=== PATIENT | male | born 1965 | race Two or more races ===

== ENCOUNTER 2019-08-29 10:27 | Emergency (ER) | payer MEDICAID, OTHER ==
[~2019-08-29] VITALS: Ht 175.3 cm; Wt 77.1 kg
[2019-08-29] MEDS ORDERED: ONDANSETRON HCL 4 MG/2 ML VIAL IV ONE (10:45)
[2019-08-29] MEDS ORDERED: MORPHINE SULFATE 4 MG/ML SYR/VIAL IV ONE (10:45)
[2019-08-29 12:15] VITALS: BP 123/74
== END 2019-08-29 12:49 | disposition home or self-care (01) ==
LOC: ER 10:27 → EDBD 10:27 → ER 12:49
DX: M54.16 Radiculopathy, lumbar region (principal)
CPT/HCPCS: 96374; 96375; 99284; J2270; J2405

== ENCOUNTER 2019-09-17 14:57 | Emergency (ER) | payer MEDICAID ==
[~2019-09-17] VITALS: Ht 180.3 cm; Wt 72.6 kg
[2019-09-17 16:31] VITALS: BP 133/93
[2019-09-17] MEDS ORDERED: METHOCARBAMOL 500 MG TAB PO ONE (17:30)
[2019-09-17] MEDS ORDERED: methylPREDNISolone SOD SUCC 125 MG/2 ML VL IM ONE (17:30)
[2019-09-17] MEDS ORDERED: KETOROLAC TROMETH 60MG/2ML VIAL IM ONE (17:30)
== END 2019-09-17 18:07 | disposition home or self-care (01) ==
LOC: ER 14:57
DX: M54.16 Radiculopathy, lumbar region (principal); M54.5 Low back pain; F17.210 Nicotine dependence, cigarettes, uncomplicated; F15.10 Other stimulant abuse, uncomplicated; Z59.0 Homelessness
CPT/HCPCS: 72100; 96372; 99284; J1885; J2930

== ENCOUNTER 2019-09-27 11:13 | Emergency (ER) | payer MEDICAID ==
[~2019-09-27] VITALS: Ht 180.3 cm; Wt 77.1 kg
[2019-09-27 11:17] VITALS: BP 152/87
[2019-09-27] MEDS ORDERED: LIDOCAINE 1% HCL (LOCAL ANESTH.) INJ 20ML MDV IJ ONE (12:30)
[2019-09-27] MEDS ORDERED: KETOROLAC TROMETH 60MG/2ML VIAL IM ONE (13:00)
[2019-09-27] MEDS ORDERED: cefTRIAXone SOD 1,000 MG VL IM ONE (13:00)
== END 2019-09-27 13:24 | disposition home or self-care (01) ==
LOC: ER 11:13
DX: L02.414 Cutaneous abscess of left upper limb (principal)
CPT/HCPCS: 10060; 87075; 96372; 99284; J0696; J1885

== ENCOUNTER 2019-09-29 15:54 | Emergency (ER) | payer MEDICAID ==
[~2019-09-29] VITALS: Ht 180.3 cm; Wt 77.1 kg
[2019-09-29 17:48] LABS: Eosinophils # (auto) 0.1 10 ^3/uL (0-0.8); Monocytes # (auto) 0.7 10 ^3/uL (0-1.3); Red Blood Cells 3.98 10^6/uL (4.5-5.90); White Blood Cell 9.3 10^3/uL (4.4-10.8)
[2019-09-29 17:50] LABS: Basophils # (auto) 0.1 10 ^3/uL (0-0.2); Basophils % (auto) 0.7 % (0.0-2.0); Eosinophils % (auto) 1.2 % (0.0-7.0); Hematocrit 37.8 % (41.0-53.0); Hemoglobin 12.6 g/dL (13.5-17.5); Lymphocytes # (auto) 1.1 10 ^3/uL (0.4-5.4); Lymphocytes % (auto) 12.1 % (10.0-50.0); Mean Corpuscular Hemoglobin 31.7 pg (28.0-32.0); Mean Corpuscular Hgb Conc. 33.3 g/dL (32.0-36.0); Mean Corpuscular Volume 95.1 fL (80.0-100.0); Monocytes % (auto) 7.4 % (0.0-12.0); Neutrophils # (auto) 7.4 10 ^3/uL (1.6-8.6); Neutrophils % (auto) 78.6 % (37.0-80.0); Platelet Count (auto) 483 10^3/uL (140-450); Red Cell Distribution Width 14.3 % (11.8-14.3)
[2019-09-29 18:06] LABS: Albumin 2.8 g/dL (3.4-5.0); BUN/Creatinine Ratio 12.5; Potassium 4.1 mmol/L (3.5-5.1)
[2019-09-29 18:09] LABS: Bilirubin, Total 0.2 mg/dL (0.2-1.0); Total Protein 7.8 g/dL (6.4-8.2)
[2019-09-29] MEDS ORDERED: VANCOMYCIN PER PHARMACY 0 MG IV SCH (19:00)
[2019-09-29] MEDS ORDERED: PIPERACILLIN-TAZOB 3.375GM 100 ML IV ONE (19:00)
[2019-09-29] MEDS ORDERED: VANCOMYCIN 1GM/250ML 250 ML IV ONE (19:30)
[2019-09-29] MEDS ORDERED: ONDANSETRON HCL 4 MG/2 ML VIAL IV ONE (21:15)
[2019-09-29] MEDS ORDERED: MORPHINE SULFATE 4 MG/ML SYR/VIAL IV ONE (21:15)
[2019-09-29] MEDS ORDERED: MIDAZOLAM HCL 5 MG/ML-1ML VIAL IV ONE (21:45)
[2019-09-29] MEDS ORDERED: fentaNYL CITRATE 100 MCG/2 ML VL IV ONE (21:45)
[2019-09-29] MEDS ORDERED: LIDOCAINE 1% HCL (LOCAL ANESTH.) INJ 20ML MDV ONE (23:56)
[2019-09-30] MEDS ORDERED: LIDOCAINE 1% HCL (LOCAL ANESTH.) INJ 20ML MDV ID ONE
[2019-09-30 01:00] VITALS: BP 146/100
[2019-09-30] MEDS ORDERED: HYDROcodone-ACET 10/325MG TAB PO ONE (01:15)
== END 2019-09-30 02:30 | disposition home or self-care (01) ==
LOC: ER 15:54
DX: L03.114 Cellulitis of left upper limb (principal); F17.210 Nicotine dependence, cigarettes, uncomplicated; Z59.0 Homelessness
CPT/HCPCS: 36415; 73200; 76881; 80053; 83605; 85025; 87040; 96365; 96366; 96368; 96375; 99285; J2001; J2250; J2270; J2405; J2543; J3010; J3370

== ENCOUNTER 2020-10-28 13:17 | Emergency (ER) | payer MEDICAID ==
[~2020-10-28] VITALS: Ht 180.3 cm; Wt 83.9 kg
[2020-10-28] MEDS ORDERED: TAMSULOSIN HYDROCHLORIDE 0.4 MG CAP PO ONE (13:42)
[2020-10-28 13:56] VITALS: BP 159/95
[2020-10-28] MEDS ORDERED: traMADol HCL 50 MG TAB PO ONE (15:00)
[2020-10-28 15:08] LABS: Urine Amorphous Crystal FEW /hpf (None Seen); Urine Bacteria FEW /hpf (None Seen); Urine Blood 3+ /uL (Negative); Urine Mucus FEW (None Seen); Urine Specific Gravity 1.014 (1.001-1.035); Urine Sperm PRESENT /hpf (None Seen); Urine WBC 14 /hpf (0 - 3)
== END 2020-10-28 14:57 | disposition home or self-care (01) ==
LOC: ER 13:17 → EDBD 13:17 → ER 14:56
DX: R33.9 Retention of urine, unspecified (principal); N39.0 Urinary tract infection, site not specified; N40.0 Benign prostatic hyperplasia without lower urinary tract symptoms; F17.210 Nicotine dependence, cigarettes, uncomplicated; Z59.0 Homelessness
CPT/HCPCS: 51702; 81001; 87086

== ENCOUNTER 2020-10-31 13:01 | Emergency (ER) | payer MEDICAID ==
[~2020-10-31] VITALS: Ht 180.3 cm; Wt 83.9 kg
[2020-10-31] MEDS ORDERED: KETOROLAC TROMETH 60MG/2ML VIAL IM ONE (16:00)
[2020-10-31 16:22] VITALS: BP 143/81
== END 2020-10-31 16:31 | disposition home or self-care (01) ==
LOC: ER 13:01
DX: G89.29 Other chronic pain (principal); M54.5 Low back pain; L08.9 Local infection of the skin and subcutaneous tissue, unspecified; F17.210 Nicotine dependence, cigarettes, uncomplicated; Z59.0 Homelessness
CPT/HCPCS: 96372; 99283; J1885

== ENCOUNTER 2020-11-01 12:25 | Emergency (ER) | payer MEDICAID ==
[~2020-11-01] VITALS: Ht 180.3 cm; Wt 83.9 kg
[2020-11-01 15:00] VITALS: BP 148/88
== END 2020-11-01 15:54 | disposition home or self-care (01) ==
LOC: ER 12:25
DX: M54.5 Low back pain (principal); G89.29 Other chronic pain; N40.0 Benign prostatic hyperplasia without lower urinary tract symptoms; F17.210 Nicotine dependence, cigarettes, uncomplicated; Z46.6 Encounter for fitting and adjustment of urinary device; Z59.0 Homelessness

== ENCOUNTER 2020-11-07 13:38 | Emergency (ER) | payer MEDICAID ==
[~2020-11-07] VITALS: Ht 180.3 cm; Wt 81.6 kg
[2020-11-07] MEDS ORDERED: cefTRIAXone SOD 1,000 MG VL IM ONE (16:15)
[2020-11-07 16:32] VITALS: BP 137/89
== END 2020-11-07 16:39 | disposition home or self-care (01) ==
LOC: ER 13:38
DX: S90.512A Abrasion, left ankle, initial encounter (principal); F17.210 Nicotine dependence, cigarettes, uncomplicated; F15.10 Other stimulant abuse, uncomplicated; Z59.0 Homelessness; X58.XXXA Exposure to other specified factors, initial encounter; Y93.89 Activity, other specified; Y92.89 Other specified places as the place of occurrence of the external cause; Y99.8 Other external cause status
CPT/HCPCS: 96372; 99283; J0696

== ENCOUNTER 2021-06-09 09:24 | Emergency (ER) | payer MEDICAID ==
[~2021-06-09] VITALS: Ht 180.3 cm; Wt 77.1 kg
[2021-06-09] MEDS ORDERED: ONDANSETRON ODT 4 MG TAB PO ONE (10:45)
[2021-06-09] MEDS ORDERED: HYDROcodone-ACET 5/325MG TAB PO ONE (10:45)
[2021-06-09] MEDS ORDERED: CYCL-837 PO (10:51)
[2021-06-09] MEDS ORDERED: NAP500T PO (10:51)
[2021-06-09 11:00] VITALS: BP 135/87
== END 2021-06-09 11:28 | disposition home or self-care (01) ==
LOC: ER 09:24
DX: M77.9 Enthesopathy, unspecified (principal); M19.011 Primary osteoarthritis, right shoulder; F17.210 Nicotine dependence, cigarettes, uncomplicated
CPT/HCPCS: 73030; 99283; Q0162

== ENCOUNTER 2021-08-25 14:37 | Emergency (ER) | payer MEDICAID ==
[~2021-08-25] VITALS: Ht 180.3 cm; Wt 81.6 kg
[~2021-08-25 14:37] MED LIST: CYCL-837 PO; CYCL-839 PO; IBUP800T27 PO; NAP500T PO
[2021-08-25 14:45] VITALS: BP 103/72
[2021-08-25] MEDS ORDERED: KETOROLAC TROMETH 60MG/2ML VIAL IM ONE (16:15)
[2021-08-25] MEDS ORDERED: HYDROcodone-ACET 5/325MG TAB PO ONE (16:15)
[2021-08-25] MEDS ORDERED: ACET-1080 PO (16:26)
== END 2021-08-25 16:37 | disposition home or self-care (01) ==
LOC: ER 14:37
DX: G89.29 Other chronic pain (principal); M54.50 Low back pain, unspecified; I10 Essential (primary) hypertension; F17.210 Nicotine dependence, cigarettes, uncomplicated; Z79.1 Long term (current) use of non-steroidal anti-inflammatories (NSAID); Z79.899 Other long term (current) drug therapy
CPT/HCPCS: 93005; 96372; 99283; J1885

== ENCOUNTER 2021-09-03 12:20 | Emergency (ER) | payer MEDICAID ==
[~2021-09-03] VITALS: Ht 180.3 cm; Wt 79.0 kg
[~2021-09-03 12:20] MED LIST changes: +ACET-1080 PO
[2021-09-03 13:00] VITALS: BP 141/88
[2021-09-03] MEDS ORDERED: CYCL-837 PO (13:07)
[2021-09-03] MEDS ORDERED: KETOROLAC TROMETH 60MG/2ML VIAL IM ONE (13:15)
[2021-09-03] MEDS ORDERED: HYDROcodone-ACET 5/325MG TAB PO ONE (13:15)
== END 2021-09-03 13:35 | disposition home or self-care (01) ==
LOC: ER 12:20
DX: M54.50 Low back pain, unspecified (principal); G89.29 Other chronic pain; M62.838 Other muscle spasm; I10 Essential (primary) hypertension; F17.210 Nicotine dependence, cigarettes, uncomplicated
CPT/HCPCS: 96372; 99283; J1885

== ENCOUNTER 2021-09-08 10:23 | Emergency (ER) | payer MEDICAID ==
[~2021-09-08] VITALS: Ht 180.3 cm; Wt 81.6 kg
[2021-09-08 11:11] VITALS: BP 126/81
[2021-09-08] MEDS ORDERED: HYDROcodone-ACET 5/325MG TAB PO ONE (11:15)
[2021-09-08] MEDS ORDERED: KETOROLAC TROMETH 60MG/2ML VIAL IM ONE (11:15)
[2021-09-08] MEDS ORDERED: IBUP800T27 PO (11:40)
== END 2021-09-08 11:50 | disposition home or self-care (01) ==
LOC: ER 10:23
DX: M54.50 Low back pain, unspecified (principal); G89.29 Other chronic pain; I10 Essential (primary) hypertension; F17.210 Nicotine dependence, cigarettes, uncomplicated
CPT/HCPCS: 96372; 99283; J1885

== ENCOUNTER 2021-09-10 11:22 | Inpatient (IN) | payer MEDICAID ==
[~2021-09-10] VITALS: Ht 180.3 cm; Wt 81.8 kg
[2021-09-10] MEDS ORDERED: SODIUM CHLORIDE 0.9% 1,000 ML IV ONE (11:30)
[2021-09-10 12:15] LABS: Basophils # (auto) 0.1 10 ^3/uL (0-0.2); Basophils % (auto) 0.4 % (0.0-2.0); Eosinophils # (auto) 0 10 ^3/uL (0-0.8); Eosinophils % (auto) 0.2 % (0.0-7.0); Hematocrit 47.1 % (41.0-53.0); Hemoglobin 15.2 g/dL (13.5-17.5); Lymphocytes # (auto) 1.2 10 ^3/uL (0.4-5.4); Lymphocytes % (auto) 8.1 % (10.0-50.0); Mean Corpuscular Hemoglobin 30.8 pg (28.0-32.0); Mean Corpuscular Hgb Conc. 32.3 g/dL (32.0-36.0); Mean Corpuscular Volume 95.1 fL (80.0-100.0); Monocytes # (auto) 0.7 10 ^3/uL (0-1.3); Monocytes % (auto) 4.7 % (0.0-12.0); Neutrophils # (auto) 13.2 10 ^3/uL (1.6-8.6); Neutrophils % (auto) 86.6 % (37.0-80.0); Red Blood Cells 4.95 10^6/uL (4.5-5.90); Red Cell Distribution Width 13.6 % (11.8-14.3); White Blood Cell 15.2 10^3/uL (4.4-10.8)
[2021-09-10 12:35] LABS: Potassium 3.9 mmol/L (3.5-5.1)
[2021-09-10 12:39] LABS: Bilirubin, Total 2.1 mg/dL (0.2-1.0); Total Protein 8.7 g/dL (6.4-8.2)
[2021-09-10] MEDS ORDERED: CLINDAMYCIN 600MG IV 50 ML IV ONE (12:45)
[2021-09-10] MEDS ORDERED: cefTRIAXone 1GM/50ML D5W 50 ML IV ONE (12:45)
[2021-09-10] MEDS ORDERED: NICOTINE 14 MG/24HR TOPICAL PATCH TD ONE (15:15)
[2021-09-10] MEDS ORDERED: SODIUM CHLORIDE 0.9% 1,000 ML IV SCH (15:15)
[2021-09-10] MEDS: SODIUM CHLORIDE 0.9% 1,000 ML IV SCH ×2 (15:28→23:15)
[2021-09-10] MEDS ORDERED: PANTOPRAZOLE 40 MG/10 ML VIAL INJ IV ONE (15:30)
[2021-09-10] MEDS ORDERED: KETOROLAC TROMETH 30 MG/ML 1ML VIAL IV ONE (16:00)
[2021-09-10 16:16] LABS: Cholesterol 139 mg/dL (< 200)
[2021-09-10 16:19] LABS: HDL Cholesterol 46 mg/dL (40-59); LDL Cholesterol 72 mg/dL (< 100); Triglycerides 109 mg/dL (< 150)
[2021-09-10] MEDS ORDERED: ACETAMINOPHEN 325 MG TAB PO PRN (20:30)
[2021-09-10] MEDS: OXYCODONE W/ ACETAMINOPHEN 5/325MG TABLET PO PRN (20:50)
[2021-09-10 22:00] VITALS: BP 101/68
[2021-09-10] MEDS: CLINDAMYCIN 600MG IV 50 ML IV SCH (22:45)
[2021-09-10 23:11] LABS: Amphetamine Screen, Urine POSITIVE (NEGATIVE); Barbiturate Scree,Urine NEGATIVE (NEGATIVE); Benzodiazephine Screen, Urine NEGATIVE (NEGATIVE); Cannabinoid Screen, Urine NEGATIVE (NEGATIVE); Cocaine Screen, Urine NEGATIVE (NEGATIVE); Opiate Scree,Urine NEGATIVE (NEGATIVE)
[2021-09-10 23:14] LABS: Urine Bacteria NONE SEEN /hpf (None Seen); Urine Blood 2+ /uL (Negative); Urine Hyaline Cast MANY /lpf (0 - 2); Urine Mucus FEW (None Seen); Urine Specific Gravity 1.023 (1.001-1.035); Urine WBC 28 /hpf (0 - 3)
[2021-09-10 23:47] LABS: Phencyclidine Screen, Urine NEGATIVE (NEGATIVE)
[2021-09-11] MEDS: SODIUM CHLORIDE 0.9% 1,000 ML IV SCH ×2 (00:15→15:15)
[2021-09-11 05:00] VITALS: BP 115/68
[2021-09-11] MEDS: OXYCODONE W/ ACETAMINOPHEN 5/325MG TABLET PO PRN ×3 (05:14→21:27)
[2021-09-11] MEDS: CLINDAMYCIN 600MG IV 50 ML IV SCH ×3 (05:25→21:28)
[2021-09-11 06:26] LABS: Basophils # (auto) 0 10 ^3/uL (0-0.2); Basophils % (auto) 0.2 % (0.0-2.0); Eosinophils # (auto) 0.1 10 ^3/uL (0-0.8); Eosinophils % (auto) 0.9 % (0.0-7.0); Hematocrit 36.4 % (41.0-53.0); Lymphocytes # (auto) 1.2 10 ^3/uL (0.4-5.4); Lymphocytes % (auto) 12.9 % (10.0-50.0); Mean Corpuscular Hemoglobin 32.1 pg (28.0-32.0); Mean Corpuscular Volume 97.3 fL (80.0-100.0); Monocytes # (auto) 0.7 10 ^3/uL (0-1.3); Monocytes % (auto) 6.9 % (0.0-12.0); Neutrophils # (auto) 7.6 10 ^3/uL (1.6-8.6); Neutrophils % (auto) 79.1 % (37.0-80.0); Nucleated Red Blood Cells % 0.1 %; Red Blood Cells 3.74 10^6/uL (4.5-5.90); Red Cell Distribution Width 13.7 % (11.8-14.3); White Blood Cell 9.6 10^3/uL (4.4-10.8)
[2021-09-11 06:50] LABS: Albumin 2.9 g/dL (3.4-5.0); BUN/Creatinine Ratio 35.5; Calcium 8.3 mg/dL (8.5-10.1); Potassium 3.7 mmol/L (3.5-5.1)
[2021-09-11 06:53] LABS: Bilirubin, Total 0.8 mg/dL (0.2-1.0); Total Protein 6.3 g/dL (6.4-8.2)
[2021-09-11 09:04] VITALS: BP 95/58
[2021-09-11] MEDS: NICOTINE 14 MG/24HR TOPICAL PATCH TD SCH (09:29)
[2021-09-11] MEDS: ENOXAPARIN SOD 40 MG/0.4 ML SYRINGE SC SCH (09:30)
[2021-09-11] MEDS ORDERED: PANTOPRAZOLE 40 MG/10 ML VIAL INJ IV SCH (10:00)
[2021-09-11 13:00] VITALS: BP 98/63
[2021-09-11] MEDS: cefTRIAXone 1GM/50ML D5W 50 ML IV SCH (16:45)
[2021-09-11 17:00] VITALS: BP 96/54
[2021-09-11 20:00] VITALS: BP 108/69
[2021-09-11 22:00] VITALS: BP 108/69
[2021-09-12 05:00] VITALS: BP 112/70
[2021-09-12] MEDS: SODIUM CHLORIDE 0.9% 1,000 ML IV SCH ×4 (05:31→23:15)
[2021-09-12] MEDS: CLINDAMYCIN 600MG IV 50 ML IV SCH ×4 (05:31→22:15)
[2021-09-12] MEDS: OXYCODONE W/ ACETAMINOPHEN 5/325MG TABLET PO PRN ×2 (05:37→19:45)
[2021-09-12 09:00] VITALS: BP 104/66
[2021-09-12] MEDS ORDERED: VANCOMYCIN PER PHARMACY 0 MG IV SCH (09:15)
[2021-09-12] MEDS ORDERED: VANCOMYCIN 1GM/250ML 250 ML IV ONE (10:00)
[2021-09-12] MEDS: PANTOPRAZOLE 40 MG TAB PO SCH (11:23)
[2021-09-12] MEDS: ENOXAPARIN SOD 40 MG/0.4 ML SYRINGE SC SCH (11:24)
[2021-09-12] MEDS: NICOTINE 14 MG/24HR TOPICAL PATCH TD SCH (11:25)
[2021-09-12 13:00] VITALS: BP 112/71
[2021-09-12] MEDS: VANCOMYCIN 1GM/250ML 250 ML IV SCH ×2 (13:00→23:00)
[2021-09-12] MEDS: cefTRIAXone 1GM/50ML D5W 50 ML IV SCH (16:00)
[2021-09-12 17:00] VITALS: BP 121/74
[2021-09-12 22:00] VITALS: BP 129/71
[2021-09-12] MEDS: MORPHINE SULFATE INJ 2 MG/ml SYRG IV PRN (23:30)
[2021-09-13 05:00] VITALS: BP 120/80
[2021-09-13] MEDS: CLINDAMYCIN 600MG IV 50 ML IV SCH ×3 (06:15→21:29)
[2021-09-13] MEDS: SODIUM CHLORIDE 0.9% 1,000 ML IV SCH ×3 (07:15→23:53)
[2021-09-13 07:38] LABS: Potassium 4.3 mmol/L (3.5-5.1)
[2021-09-13 09:00] VITALS: BP 131/83
[2021-09-13] MEDS: NICOTINE 14 MG/24HR TOPICAL PATCH TD SCH (09:26)
[2021-09-13] MEDS: PANTOPRAZOLE 40 MG TAB PO SCH (09:26)
[2021-09-13] MEDS: ENOXAPARIN SOD 40 MG/0.4 ML SYRINGE SC SCH (09:26)
[2021-09-13] MEDS: MORPHINE SULFATE INJ 2 MG/ml SYRG IV PRN ×2 (10:04→18:21)
[2021-09-13] MEDS: VANCOMYCIN 1GM/250ML 250 ML IV SCH ×2 (11:21→23:01)
[2021-09-13 13:00] VITALS: BP 137/81
[2021-09-13 17:00] VITALS: BP 128/81
[2021-09-13] MEDS: cefTRIAXone 1GM/50ML D5W 50 ML IV SCH (18:01)
[2021-09-13 22:00] VITALS: BP 131/82
[2021-09-14] MEDS: MORPHINE SULFATE INJ 2 MG/ml SYRG IV PRN ×4 (01:30→21:32)
[2021-09-14 05:00] VITALS: BP 133/83
[2021-09-14] MEDS: CLINDAMYCIN 600MG IV 50 ML IV SCH ×3 (06:01→21:31)
[2021-09-14 07:27] LABS: Basophils # (auto) 0.1 10 ^3/uL (0-0.2); Basophils % (auto) 0.9 % (0.0-2.0); Eosinophils # (auto) 0.2 10 ^3/uL (0-0.8); Eosinophils % (auto) 3.4 % (0.0-7.0); Hemoglobin 12.1 g/dL (13.5-17.5); Lymphocytes # (auto) 1.1 10 ^3/uL (0.4-5.4); Lymphocytes % (auto) 16.2 % (10.0-50.0); Mean Corpuscular Hemoglobin 32.4 pg (28.0-32.0); Mean Corpuscular Hgb Conc. 33.8 g/dL (32.0-36.0); Monocytes # (auto) 0.7 10 ^3/uL (0-1.3); Monocytes % (auto) 9.8 % (0.0-12.0); Neutrophils # (auto) 4.9 10 ^3/uL (1.6-8.6); Neutrophils % (auto) 69.7 % (37.0-80.0); Red Blood Cells 3.75 10^6/uL (4.5-5.90); Red Cell Distribution Width 13.4 % (11.8-14.3)
[2021-09-14 07:54] LABS: Albumin 2.4 g/dL (3.4-5.0); BUN/Creatinine Ratio 20.7; Calcium 8.3 mg/dL (8.5-10.1)
[2021-09-14 07:57] LABS: Bilirubin, Total 0.3 mg/dL (0.2-1.0)
[2021-09-14 08:36] VITALS: BP 135/86
[2021-09-14] MEDS: NICOTINE 14 MG/24HR TOPICAL PATCH TD SCH ×2 (08:54→09:31)
[2021-09-14] MEDS: PANTOPRAZOLE 40 MG TAB PO SCH (08:54)
[2021-09-14] MEDS: ENOXAPARIN SOD 40 MG/0.4 ML SYRINGE SC SCH (08:54)
[2021-09-14] MEDS: SODIUM CHLORIDE 0.9% 1,000 ML IV SCH ×3 (09:32→21:32)
[2021-09-14] MEDS: VANCOMYCIN 1GM/250ML 250 ML IV SCH ×2 (11:48→20:03)
[2021-09-14] MEDS ORDERED: GADOTERATE MEG 7.5 MMOL/15ml INJ (0.5MMOL/ml) IV ONE (11:51)
[2021-09-14] MEDS ORDERED: IOHEXOL 300 MG/ML 100ML BOTTLE IJ ONE (15:19)
[2021-09-14] MEDS: cefTRIAXone 1GM/50ML D5W 50 ML IV SCH (17:45)
[2021-09-14 22:09] VITALS: BP_SYST 133
[2021-09-15] MEDS: MORPHINE SULFATE INJ 2 MG/ml SYRG IV PRN ×4 (03:18→22:53)
[2021-09-15 05:28] VITALS: BP 131/87
[2021-09-15] MEDS: SODIUM CHLORIDE 0.9% 1,000 ML IV SCH ×2 (05:58→15:15)
[2021-09-15] MEDS: CLINDAMYCIN 600MG IV 50 ML IV SCH (06:00)
[2021-09-15 09:00] VITALS: BP 133/76
[2021-09-15] MEDS: NICOTINE 14 MG/24HR TOPICAL PATCH TD SCH (10:00)
[2021-09-15] MEDS: PANTOPRAZOLE 40 MG TAB PO SCH (10:25)
[2021-09-15] MEDS: ENOXAPARIN SOD 40 MG/0.4 ML SYRINGE SC SCH (10:25)
[2021-09-15] MEDS: VANCOMYCIN 1GM/250ML 250 ML IV SCH (12:19)
[2021-09-15 13:00] VITALS: BP 133/82
[2021-09-15 16:45] LABS: INR 1.07 (0.9-1.15); Partial Thromboplastin Time 30.5 sec (23.6-33.0)
[2021-09-15 17:00] VITALS: BP 146/87
[2021-09-15] MEDS ORDERED: VANCOMYCIN 1GM/250ML 250 ML IV SCH (20:00)
[2021-09-15 21:43] VITALS: BP 141/78
[2021-09-16] MEDS: SODIUM CHLORIDE 0.9% 1,000 ML IV SCH ×4 (01:47→23:15)
[2021-09-16] MEDS: MORPHINE SULFATE INJ 2 MG/ml SYRG IV PRN ×2 (04:39→09:36)
[2021-09-16 05:00] VITALS: BP 138/76
[2021-09-16] MEDS: CLINDAMYCIN 600MG IV 50 ML IV SCH ×3 (05:38→21:39)
[2021-09-16 08:00] VITALS: BP 123/72
[2021-09-16 08:30] VITALS: BP 123/72
[2021-09-16] MEDS: PANTOPRAZOLE 40 MG TAB PO SCH (09:37)
[2021-09-16] MEDS: NICOTINE 14 MG/24HR TOPICAL PATCH TD SCH (09:38)
[2021-09-16] MEDS: ENOXAPARIN SOD 40 MG/0.4 ML SYRINGE SC SCH (09:38)
[2021-09-16] MEDS: HYDROmorphone HCL 2 MG/ML VL/or syr IV PRN (10:30)
[2021-09-16] MEDS ORDERED: LIDOCAINE 2%HCL (LOCAL ANESTH.) INJ 10ml MDV ONE (10:34)
[2021-09-16] MEDS: VANCOMYCIN 1GM/250ML 250 ML IV SCH (15:55)
[2021-09-16] MEDS: cefTRIAXone 1GM/50ML D5W 50 ML IV SCH (16:00)
[2021-09-16 16:44] VITALS: BP 126/81
[2021-09-16] MEDS: OXYCODONE W/ ACETAMINOPHEN 5/325MG TABLET PO PRN (21:06)
[2021-09-16 22:19] VITALS: BP 140/77
[2021-09-17] MEDS: VANCOMYCIN 1GM/250ML 250 ML IV SCH ×2 (03:23→14:52)
[2021-09-17 05:00] VITALS: BP 134/68
[2021-09-17] MEDS: CLINDAMYCIN 600MG IV 50 ML IV SCH ×3 (05:35→21:52)
[2021-09-17] MEDS: SODIUM CHLORIDE 0.9% 1,000 ML IV SCH ×3 (05:36→23:15)
[2021-09-17 06:19] LABS: BUN/Creatinine Ratio 23.4; Calcium 8.6 mg/dL (8.5-10.1)
[2021-09-17 08:00] VITALS: BP 123/72
[2021-09-17] MEDS: NICOTINE 14 MG/24HR TOPICAL PATCH TD SCH (08:43)
[2021-09-17] MEDS: ENOXAPARIN SOD 40 MG/0.4 ML SYRINGE SC SCH (08:44)
[2021-09-17] MEDS: PANTOPRAZOLE 40 MG TAB PO SCH (08:44)
[2021-09-17] MEDS: OXYCODONE W/ ACETAMINOPHEN 5/325MG TABLET PO PRN ×2 (08:48→20:05)
[2021-09-17 09:00] VITALS: BP 156/97
[2021-09-17 13:02] VITALS: BP 147/82
[2021-09-17] MEDS: cefTRIAXone 1GM/50ML D5W 50 ML IV SCH (16:56)
[2021-09-17 17:00] VITALS: BP 139/85
[2021-09-17 22:00] VITALS: BP 159/77
[2021-09-18] MEDS: VANCOMYCIN 1GM/250ML 250 ML IV SCH ×2 (02:51→15:36)
[2021-09-18 04:59] VITALS: BP 144/80
[2021-09-18] MEDS: SODIUM CHLORIDE 0.9% 1,000 ML IV SCH (05:21)
[2021-09-18] MEDS: CLINDAMYCIN 600MG IV 50 ML IV SCH ×3 (05:21→22:00)
[2021-09-18 09:00] VITALS: BP 144/81
[2021-09-18] MEDS: ENOXAPARIN SOD 40 MG/0.4 ML SYRINGE SC SCH (09:23)
[2021-09-18] MEDS: NICOTINE 14 MG/24HR TOPICAL PATCH TD SCH (09:23)
[2021-09-18] MEDS: PANTOPRAZOLE 40 MG TAB PO SCH (09:23)
[2021-09-18 13:00] VITALS: BP 160/99
[2021-09-18] MEDS: OXYCODONE W/ ACETAMINOPHEN 5/325MG TABLET PO PRN (14:23)
[2021-09-18] MEDS: HYDROmorphone HCL 2 MG/ML VL/or syr IV PRN (15:42)
[2021-09-18] MEDS: cefTRIAXone 1GM/50ML D5W 50 ML IV SCH (16:57)
[2021-09-18 17:00] VITALS: BP 127/73
[2021-09-18 22:00] VITALS: BP 144/80
[2021-09-19] MEDS: VANCOMYCIN 1GM/250ML 250 ML IV SCH ×2 (02:52→14:18)
[2021-09-19 05:00] VITALS: BP_SYST 112; BP_SYST 154; BP_DIAS 54; BP_DIAS 84
[2021-09-19] MEDS: CLINDAMYCIN 600MG IV 50 ML IV SCH (06:00)
[2021-09-19] MEDS: NICOTINE 14 MG/24HR TOPICAL PATCH TD SCH (08:52)
[2021-09-19] MEDS: ENOXAPARIN SOD 40 MG/0.4 ML SYRINGE SC SCH (08:52)
[2021-09-19] MEDS: PANTOPRAZOLE 40 MG TAB PO SCH (08:52)
[2021-09-19 09:00] VITALS: BP 139/78
[2021-09-19 13:00] VITALS: BP_SYST 131; BP_SYST 91; BP_DIAS 51; BP_DIAS 80
[2021-09-19] MEDS: CLINDAMYCIN HCL 150 MG CAP PO SCH ×2 (14:17→21:56)
[2021-09-19] MEDS: OXYCODONE W/ ACETAMINOPHEN 5/325MG TABLET PO PRN ×2 (14:25→21:57)
[2021-09-19] MEDS: cefTRIAXone 1GM/50ML D5W 50 ML IV SCH (16:43)
[2021-09-19 17:00] VITALS: BP 165/100
[2021-09-19 22:00] VITALS: BP 160/97
[2021-09-19 23:00] VITALS: BP 141/75
[2021-09-20] MEDS: VANCOMYCIN 1GM/250ML 250 ML IV SCH (03:06)
[2021-09-20] MEDS: OXYCODONE W/ ACETAMINOPHEN 5/325MG TABLET PO PRN (04:05)
[2021-09-20 05:54] LABS: Basophils # (auto) 0 10 ^3/uL (0-0.2); Basophils % (auto) 0.4 % (0.0-2.0); Eosinophils # (auto) 0.2 10 ^3/uL (0-0.8); Eosinophils % (auto) 1.4 % (0.0-7.0); Hematocrit 41.2 % (41.0-53.0); Hemoglobin 13.7 g/dL (13.5-17.5); Lymphocytes # (auto) 1.7 10 ^3/uL (0.4-5.4); Lymphocytes % (auto) 15.3 % (10.0-50.0); Mean Corpuscular Hemoglobin 31.2 pg (28.0-32.0); Mean Corpuscular Hgb Conc. 33.3 g/dL (32.0-36.0); Mean Corpuscular Volume 93.8 fL (80.0-100.0); Monocytes # (auto) 0.7 10 ^3/uL (0-1.3); Monocytes % (auto) 6.2 % (0.0-12.0); Neutrophils # (auto) 8.6 10 ^3/uL (1.6-8.6); Neutrophils % (auto) 76.7 % (37.0-80.0); Nucleated Red Blood Cells % 0.1 %; Red Blood Cells 4.39 10^6/uL (4.5-5.90); Red Cell Distribution Width 13.4 % (11.8-14.3); White Blood Cell 11.2 10^3/uL (4.4-10.8)
[2021-09-20 06:04] LABS: Albumin 3.4 g/dL (3.4-5.0)
[2021-09-20 06:06] LABS: BUN/Creatinine Ratio 22.9; Phosphorus 3.6 mg/dL (2.5-4.90)
[2021-09-20] MEDS: CLINDAMYCIN HCL 150 MG CAP PO SCH (06:52)
[2021-09-20 09:00] VITALS: BP 118/65
== END 2021-09-20 10:25 | disposition left against medical advice (07) | DRG 383 ==
LOC: ER 11:22 → WEST WING 15:16
PROVIDERS: ADMIT Registered Nurse; ATTEND Family Medicine
PROC: 05HC33Z Insertion of Infusion Device into Left Basilic Vein, Percutaneous Approach (ICD-10-PCS; 2021-09-15)
PROC: B54NZZA Ultrasonography of Left Upper Extremity Veins, Guidance (ICD-10-PCS; 2021-09-15)
PROC: 0X9 Anatomical Regions, Upper Extremities, Drainage (ICD-10-PCS; principal; 2021-09-16)
DX: L02.413 Cutaneous abscess of right upper limb (principal); F15.90 Other stimulant use, unspecified, uncomplicated; N39.0 Urinary tract infection, site not specified; L03.113 Cellulitis of right upper limb; F17.210 Nicotine dependence, cigarettes, uncomplicated; R07.9 Chest pain, unspecified; Z53.29 Procedure and treatment not carried out because of patient's decision for other reasons; G89.29 Other chronic pain; I10 Essential (primary) hypertension; Z20.822 Contact with and (suspected) exposure to COVID-19; K46.9 Unspecified abdominal hernia without obstruction or gangrene; M54.50 Low back pain, unspecified; Z72.89 Other problems related to lifestyle; N40.1 Benign prostatic hyperplasia with lower urinary tract symptoms; R10.9 Unspecified abdominal pain
CPT/HCPCS: 36415; 71045; 73200; 73201; 74176; 76942; 80048; 80053; 80061; 80069; 80202; 80307; 80320; 81001; 82565; 83605; 84484; 85025; 85610; 85730; 87040; 87086; 87205; 93005; 93971; 96365; 96368; 96375; C9113; G0378; J0696; J1885; J2001; J3490

== ENCOUNTER 2021-09-20 13:37 | Inpatient (IN) | payer MEDICAID ==
[~2021-09-20] VITALS: Ht 180.3 cm; Wt 81.6 kg
[2021-09-20] MEDS ORDERED: ENOXAPARIN SOD 80 MG/0.8ML SYRINGE SC ONE (15:30)
[2021-09-20 16:05] LABS: Basophils # (auto) 0.1 10 ^3/uL (0-0.2); Basophils % (auto) 0.5 % (0.0-2.0); Eosinophils # (auto) 0 10 ^3/uL (0-0.8); Eosinophils % (auto) 0.3 % (0.0-7.0); Hemoglobin 13.2 g/dL (13.5-17.5); Lymphocytes # (auto) 1.4 10 ^3/uL (0.4-5.4); Lymphocytes % (auto) 9.8 % (10.0-50.0); Mean Corpuscular Hemoglobin 30.6 pg (28.0-32.0); Mean Corpuscular Hgb Conc. 32.2 g/dL (32.0-36.0); Mean Corpuscular Volume 95.2 fL (80.0-100.0); Monocytes # (auto) 0.7 10 ^3/uL (0-1.3); Monocytes % (auto) 5.2 % (0.0-12.0); Neutrophils % (auto) 84.2 % (37.0-80.0); Red Blood Cells 4.31 10^6/uL (4.5-5.90); Red Cell Distribution Width 13.5 % (11.8-14.3); White Blood Cell 14.3 10^3/uL (4.4-10.8)
[2021-09-20 16:17] LABS: INR 1.04 (0.9-1.15); Partial Thromboplastin Time 30.7 sec (24.6-33.4)
[2021-09-20 16:18] LABS: Albumin 3.8 g/dL (3.4-5.0); BUN/Creatinine Ratio 24.4; Calcium 9.3 mg/dL (8.5-10.1); Potassium 4.1 mmol/L (3.5-5.1)
[2021-09-20 16:21] LABS: Bilirubin, Total 0.2 mg/dL (0.2-1.0)
[2021-09-20] MEDS ORDERED: CLINDAMYCIN 600MG IV 50 ML IV ONE (17:30)
[2021-09-20] MEDS ORDERED: cefTRIAXone 1GM/50ML D5W 50 ML IV ONE (17:30)
[2021-09-20] MEDS ORDERED: ONDANSETRON ODT 4 MG TAB PO ONE (17:30)
[2021-09-20] MEDS ORDERED: MORPHINE SULFATE INJ 2 MG/ml SYRG IM ONE (17:30)
[2021-09-20] MEDS ORDERED: CYCLOBENZAPRINE HCL 10 MG TAB PO PRN (19:15)
[2021-09-20] MEDS ORDERED: VANCOMYCIN PER PHARMACY 0 MG IV SCH (19:15)
[2021-09-20] MEDS ORDERED: ACETAMINOPHEN 325 MG TAB PO PRN (19:15)
[2021-09-20] MEDS ORDERED: ONDANSETRON HCL 4 MG/2 ML VIAL IV PRN (19:15)
[2021-09-20] MEDS ORDERED: HYDROcodone-ACET 5/325MG TAB PO PRN (19:15)
[2021-09-20] MEDS ORDERED: DOCUSATE SOD 100 MG CAP PO PRN (19:15)
[2021-09-20] MEDS ORDERED: NAPROXEN 500 MG TAB PO PRN (19:15)
[2021-09-20] MEDS ORDERED: LABETALOL HCL 5 MG/ML 4ML SYRINGE IV PRN (19:15)
[2021-09-20] MEDS ORDERED: VANCOMYCIN 1GM/250ML 250 ML IV ONE (19:30)
[2021-09-20] MEDS: HYDROmorphone HCL 2 MG/ML VL/or syr IV PRN (20:32)
[2021-09-20] MEDS: SODIUM CHLOR 0.9% PF (SALINE LOCK) 10ML VIAL/SYR IV SCH (22:06)
[2021-09-20] MEDS: RIVAROXABAN 15 MG TAB PO SCH (22:10)
[2021-09-21] MEDS: PIPERACILLIN-TAZOB 3.375GM 100 ML IV SCH ×3 (00:35→12:00)
[2021-09-21] MEDS ORDERED: VANCOMYCIN 1GM/250ML 250 ML IV SCH ×2 (04:30→06:00)
[2021-09-21] MEDS: SODIUM CHLOR 0.9% PF (SALINE LOCK) 10ML VIAL/SYR IV SCH ×2 (06:50→14:00)
[2021-09-21 07:03] LABS: Albumin 3.2 g/dL (3.4-5.0); BUN/Creatinine Ratio 19.4; Calcium 9.1 mg/dL (8.5-10.1); Phosphorus 3.9 mg/dL (2.5-4.90); Potassium 4.3 mmol/L (3.5-5.1)
[2021-09-21] MEDS: HYDROmorphone HCL 2 MG/ML VL/or syr IV PRN (09:21)
[2021-09-21] MEDS: RIVAROXABAN 15 MG TAB PO SCH (09:41)
[2021-09-21 09:54] VITALS: BP 124/65
[2021-09-21] MEDS ORDERED: PANTOPRAZOLE 40 MG TAB PO SCH (10:00)
[2021-09-21 13:00] VITALS: BP 106/64
== END 2021-09-21 16:00 | disposition home or self-care (01) | DRG 197 ==
LOC: ER 13:37 → OVERFLOW 19:11 → CENTRAL 09-21 08:01
PROVIDERS: ADMIT Internal Medicine; ATTEND Internal Medicine
DX: I82.622 Acute embolism and thrombosis of deep veins of left upper extremity (principal); I80.9 Phlebitis and thrombophlebitis of unspecified site; L03.113 Cellulitis of right upper limb; F17.210 Nicotine dependence, cigarettes, uncomplicated; I10 Essential (primary) hypertension; L02.413 Cutaneous abscess of right upper limb; N40.0 Benign prostatic hyperplasia without lower urinary tract symptoms; F15.10 Other stimulant abuse, uncomplicated; Z20.822 Contact with and (suspected) exposure to COVID-19; L03.114 Cellulitis of left upper limb
CPT/HCPCS: 36415; 80053; 80069; 84484; 85025; 85610; 85730; 87040; 93971; 96365; 96366; 96367; 96372; 96375; G0378; J0696; J2405; J2543; J3490; Q0162

== ENCOUNTER 2021-09-30 12:53 | Emergency (ER) | payer MEDICAID ==
[~2021-09-30] VITALS: Ht 180.3 cm; Wt 90.0 kg
[2021-09-30] MEDS ORDERED: HYDROcodone-ACET 7.5/325MG TAB PO ONE (14:30)
[2021-09-30] MEDS ORDERED: FAMOTIDINE 20 MG TAB PO ONE (14:30)
[2021-09-30] MEDS ORDERED: TRAM-297 PO (14:41)
[2021-09-30 14:43] VITALS: BP 112/73
[2021-09-30] MEDS ORDERED: PANT40TA2 PO (14:55)
== END 2021-09-30 14:55 | disposition home or self-care (01) ==
LOC: ER 12:53
DX: G89.29 Other chronic pain (principal); M54.50 Low back pain, unspecified; Z76.0 Encounter for issue of repeat prescription

== ENCOUNTER 2021-10-01 08:13 | Emergency (ER) | payer MEDICAID ==
[~2021-10-01] VITALS: Ht 180.3 cm; Wt 85.0 kg
[~2021-10-01 08:13] MED LIST changes: +PANT40TA2 PO; +TRAM-297 PO
[2021-10-01 08:37] VITALS: BP 156/101
== END 2021-10-01 09:23 | disposition left against medical advice (07) ==
LOC: ER 08:20
DX: F29 Unspecified psychosis not due to a substance or known physiological condition (principal); I10 Essential (primary) hypertension; K21.9 Gastro-esophageal reflux disease without esophagitis; F17.210 Nicotine dependence, cigarettes, uncomplicated

== ENCOUNTER 2021-10-04 15:19 | Emergency (ER) | payer MEDICAID ==
[~2021-10-04] VITALS: Ht 180.3 cm; Wt 85.0 kg
[2021-10-04 16:28] LABS: Salicylate < 1.7 mg/dL (2.8-20.0)
[2021-10-04 16:29] LABS: Alanine Aminotransferase 22 U/L (16-61); Albumin 4.1 g/dL (3.4-5.0); Anion Gap 10 (5-15); Aspartate Aminotransferase 14 U/L (15-37); BUN/Creatinine Ratio 23.7; Blood Alcohol < 3.0 mg/dL (0-5); Blood Urea Nitrogen 32 mg/dL (7-18); Carbon Dioxide 23 mmol/L (21-32); Chloride 109 mmol/L (98-107); GFR African American 70 mL/min; GFR Non-African American 58 mL/min; Glucose 156 mg/dL (74-106); Potassium 3.9 mmol/L (3.5-5.1); Sodium 142 mmol/L (136-145)
[2021-10-04 16:31] LABS: Alkaline Phosphatase 64 U/L (45-117); Bilirubin, Total 0.5 mg/dL (0.2-1.0); Total Protein 7.9 g/dL (6.4-8.2)
[2021-10-04 16:34] LABS: Acetaminophen < 2.0 ug/mL (10-30)
[2021-10-04 16:38] LABS: Basophils # (auto) 0 10 ^3/uL (0-0.2); Basophils % (auto) 0.2 % (0.0-2.0); Eosinophils # (auto) 0 10 ^3/uL (0-0.8); Eosinophils % (auto) 0.5 % (0.0-7.0); Hematocrit 40.7 % (41.0-53.0); Hemoglobin 13.2 g/dL (13.5-17.5); Lymphocytes % (auto) 15.2 % (10.0-50.0); Mean Corpuscular Hemoglobin 30.6 pg (28.0-32.0); Mean Corpuscular Hgb Conc. 32.5 g/dL (32.0-36.0); Mean Corpuscular Volume 94.4 fL (80.0-100.0); Monocytes # (auto) 0.3 10 ^3/uL (0-1.3); Monocytes % (auto) 4.4 % (0.0-12.0); Neutrophils # (auto) 5.1 10 ^3/uL (1.6-8.6); Neutrophils % (auto) 79.7 % (37.0-80.0); Nucleated Red Blood Cells % 0.1 %; Red Blood Cells 4.31 10^6/uL (4.5-5.90); Red Cell Distribution Width 13.9 % (11.8-14.3); White Blood Cell 6.5 10^3/uL (4.4-10.8)
[2021-10-04 17:00] LABS: INR 1.08 (0.9-1.15); Partial Thromboplastin Time 30.9 sec (24.6-33.4)
[2021-10-04 17:20] LABS: Alcohol, Urine < 3.0 mg/dL (0-10); Amphetamine Screen, Urine POSITIVE (NEGATIVE); Barbiturate Scree,Urine NEGATIVE (NEGATIVE); Benzodiazephine Screen, Urine NEGATIVE (NEGATIVE); Cannabinoid Screen, Urine NEGATIVE (NEGATIVE); Cocaine Screen, Urine NEGATIVE (NEGATIVE); Opiate Scree,Urine NEGATIVE (NEGATIVE); Phencyclidine Screen, Urine NEGATIVE (NEGATIVE)
[2021-10-05 00:30] VITALS: BP 146/78
== END 2021-10-05 01:05 | disposition home or self-care (01) ==
LOC: ER 15:19
DX: R45.851 Suicidal ideations (principal); K21.9 Gastro-esophageal reflux disease without esophagitis; I10 Essential (primary) hypertension; F15.10 Other stimulant abuse, uncomplicated; F17.210 Nicotine dependence, cigarettes, uncomplicated
CPT/HCPCS: 36415; 80053; 80307; 80320; 80329; 85025; 85610; 85730; 93005

== ENCOUNTER 2021-10-27 11:49 | Emergency (ER) | payer MEDICAID ==
[~2021-10-27] VITALS: Ht 154.9 cm; Wt 78.0 kg
[2021-10-27 12:49] VITALS: BP 102/68
[2021-10-27] MEDS ORDERED: KETOROLAC TROMETH 60MG/2ML VIAL IM ONE (13:45)
[2021-10-27] MEDS ORDERED: TRAM-297 PO (13:45)
[2021-10-27] MEDS ORDERED: traMADol HCL 50 MG TAB PO ONE (13:45)
== END 2021-10-27 14:01 | disposition home or self-care (01) ==
LOC: ER 11:49
DX: G89.29 Other chronic pain (principal); M54.50 Low back pain, unspecified; F17.210 Nicotine dependence, cigarettes, uncomplicated; F15.10 Other stimulant abuse, uncomplicated; I10 Essential (primary) hypertension; K21.9 Gastro-esophageal reflux disease without esophagitis; Z76.0 Encounter for issue of repeat prescription
CPT/HCPCS: 96372; 99283; J1885

== ENCOUNTER 2021-11-17 12:24 | Emergency (ER) | payer MEDICAID ==
[~2021-11-17] VITALS: Ht 180.3 cm; Wt 81.6 kg
[2021-11-17 13:18] VITALS: BP 127/76
[2021-11-17] MEDS ORDERED: TRAM-297 PO (16:01)
== END 2021-11-17 16:20 | disposition home or self-care (01) ==
LOC: ER 12:24
DX: G89.29 Other chronic pain (principal); M25.511 Pain in right shoulder; I10 Essential (primary) hypertension; K21.9 Gastro-esophageal reflux disease without esophagitis; M54.9 Dorsalgia, unspecified; F17.210 Nicotine dependence, cigarettes, uncomplicated; Z76.0 Encounter for issue of repeat prescription; Z79.899 Other long term (current) drug therapy

== ENCOUNTER 2021-11-22 10:11 | Emergency (ER) | payer MEDICAID ==
[~2021-11-22] VITALS: Ht 180.3 cm; Wt 75.6 kg
[2021-11-22 11:11] LABS: Basophils # (auto) 0 10 ^3/uL (0-0.2); Basophils % (auto) 0.2 % (0.0-2.0); Eosinophils # (auto) 0.1 10 ^3/uL (0-0.8); Eosinophils % (auto) 1.1 % (0.0-7.0); Hematocrit 44.9 % (41.0-53.0); Lymphocytes # (auto) 0.9 10 ^3/uL (0.4-5.4); Lymphocytes % (auto) 10.7 % (10.0-50.0); Mean Corpuscular Hemoglobin 31.3 pg (28.0-32.0); Mean Corpuscular Hgb Conc. 33.5 g/dL (32.0-36.0); Mean Corpuscular Volume 93.6 fL (80.0-100.0); Monocytes # (auto) 0.4 10 ^3/uL (0-1.3); Monocytes % (auto) 5.1 % (0.0-12.0); Neutrophils % (auto) 82.9 % (37.0-80.0); Red Cell Distribution Width 14.5 % (11.8-14.3); White Blood Cell 8.4 10^3/uL (4.4-10.8)
[2021-11-22 12:00] LABS: Potassium 3.6 mmol/L (3.5-5.1)
[2021-11-22] MEDS ORDERED: MORPHINE SULFATE 4 MG/ML SYR/VIAL IV ONE (12:00)
[2021-11-22] MEDS ORDERED: ONDANSETRON HCL 4 MG/2 ML VIAL IV ONE (12:00)
[2021-11-22] MEDS ORDERED: SODIUM CHLORIDE 0.9% 1,000 ML IV ONE (12:00)
[2021-11-22] MEDS ORDERED: LABETALOL HCL 5 MG/ML 4ML SYRINGE IV ONE (12:00)
[2021-11-22 12:08] LABS: Albumin 4.3 g/dL (3.4-5.0); BUN/Creatinine Ratio 15.9; Bilirubin, Total 0.5 mg/dL (0.2-1.0); Calcium 9.5 mg/dL (8.5-10.1)
[2021-11-22 14:11] VITALS: BP 158/95
[2021-11-22] MEDS ORDERED: IOHEXOL 350 MG/ML 100ML IJ ONE (14:57)
[2021-11-22] MEDS ORDERED: ENOXAPARIN SOD 80 MG/0.8ML SYRINGE SC ONE (15:00)
[2021-11-22 15:22] LABS: Urine Bacteria NONE SEEN /hpf (None Seen); Urine Blood Negative /uL (Negative); Urine Specific Gravity 1.017 (1.001-1.035); Urine WBC 4 /hpf (0 - 3)
== END 2021-11-22 14:56 | disposition left against medical advice (07) ==
LOC: ER 10:11
DX: R10.13 Epigastric pain (principal); R11.2 Nausea with vomiting, unspecified; I10 Essential (primary) hypertension; K21.9 Gastro-esophageal reflux disease without esophagitis; F17.210 Nicotine dependence, cigarettes, uncomplicated; Z79.1 Long term (current) use of non-steroidal anti-inflammatories (NSAID); Z79.899 Other long term (current) drug therapy
CPT/HCPCS: 36415; 74176; 80053; 81001; 84484; 85025; 85379; 93005; 96361; 96374; 96375; 99285; J2270; J2405; J3490; J7030; Q9967

== ENCOUNTER 2021-11-24 07:30 | Emergency (ER) | payer MEDICAID ==
[~2021-11-24] VITALS: Ht 180.3 cm; Wt 72.4 kg
[2021-11-24 07:36] VITALS: BP 153/91
== END 2021-11-24 08:13 | disposition left against medical advice (07) ==
LOC: ER 07:30
DX: I10 Essential (primary) hypertension (principal); Z53.21 Procedure and treatment not carried out due to patient leaving prior to being seen by health care provider

== ENCOUNTER 2021-12-08 08:31 | Emergency (ER) | payer MEDICAID ==
[~2021-12-08] VITALS: Ht 180.3 cm; Wt 77.5 kg
[2021-12-08 08:43] VITALS: BP 120/71
[2021-12-08] MEDS ORDERED: KETOROLAC TROMETH 60MG/2ML VIAL IM ONE (09:15)
== END 2021-12-08 09:58 | disposition home or self-care (01) ==
LOC: ER 08:31
DX: G89.29 Other chronic pain (principal); M54.50 Low back pain, unspecified; I10 Essential (primary) hypertension; K21.9 Gastro-esophageal reflux disease without esophagitis; F17.210 Nicotine dependence, cigarettes, uncomplicated; Z79.1 Long term (current) use of non-steroidal anti-inflammatories (NSAID); Z79.899 Other long term (current) drug therapy
CPT/HCPCS: 96372; 99283; J1885

== ENCOUNTER 2021-12-15 12:40 | Emergency (ER) | payer MEDICAID ==
[~2021-12-15] VITALS: Ht 180.3 cm; Wt 77.0 kg
[2021-12-15 14:08] VITALS: BP 105/76
[2021-12-15] MEDS ORDERED: MELO7.5T9 PO (14:44)
[2021-12-15] MEDS ORDERED: PRED20TA2 PO (14:45)
[2021-12-15] MEDS ORDERED: KETOROLAC TROMETH 60MG/2ML VIAL IM ONE (14:45)
== END 2021-12-15 14:50 | disposition home or self-care (01) ==
LOC: ER 12:40
DX: M17.11 Unilateral primary osteoarthritis, right knee (principal); G89.29 Other chronic pain; M54.50 Low back pain, unspecified; K21.9 Gastro-esophageal reflux disease without esophagitis; I10 Essential (primary) hypertension; F17.210 Nicotine dependence, cigarettes, uncomplicated; F12.10 Cannabis abuse, uncomplicated; F15.10 Other stimulant abuse, uncomplicated
CPT/HCPCS: 96372; 99283; J1885

== ENCOUNTER 2021-12-23 09:18 | Emergency (ER) | payer MEDICAID ==
[~2021-12-23] VITALS: Ht 180.3 cm; Wt 77.5 kg
[~2021-12-23 09:18] MED LIST changes: +MELO7.5T9 PO; +PRED20TA2 PO
[2021-12-23 09:47] VITALS: BP 123/83
[2021-12-23] MEDS ORDERED: KETOROLAC TROMETH 60MG/2ML VIAL IM ONE (10:00)
[2021-12-23] MEDS ORDERED: HYDR-4902 PO (10:11)
[2021-12-23] MEDS ORDERED: CIPR-173 PO (10:11)
== END 2021-12-23 10:32 | disposition home or self-care (01) ==
LOC: ER 09:18
DX: G89.29 Other chronic pain (principal); M54.50 Low back pain, unspecified; N39.0 Urinary tract infection, site not specified; K21.9 Gastro-esophageal reflux disease without esophagitis; I10 Essential (primary) hypertension; F17.210 Nicotine dependence, cigarettes, uncomplicated; F12.10 Cannabis abuse, uncomplicated; F15.10 Other stimulant abuse, uncomplicated
CPT/HCPCS: 96372; 99283; J1885

== ENCOUNTER 2021-12-24 17:48 | Emergency (ER) | payer MEDICAID ==
[~2021-12-24] VITALS: Ht 180.3 cm; Wt 78.6 kg
[~2021-12-24 17:48] MED LIST changes: +CIPR-173 PO; +HYDR-4902 PO
[2021-12-24 18:58] VITALS: BP 126/75
== END 2021-12-24 19:01 | disposition home or self-care (01) ==
LOC: ER 17:48
DX: S01.81XA Laceration without foreign body of other part of head, initial encounter (principal); I10 Essential (primary) hypertension; K21.9 Gastro-esophageal reflux disease without esophagitis; F17.210 Nicotine dependence, cigarettes, uncomplicated; Z79.1 Long term (current) use of non-steroidal anti-inflammatories (NSAID); Z79.899 Other long term (current) drug therapy; Y04.2XXA Assault by strike against or bumped into by another person, initial encounter; Y93.89 Activity, other specified; Y92.89 Other specified places as the place of occurrence of the external cause; Y99.8 Other external cause status
CPT/HCPCS: 12013; 99282; J2001

== ENCOUNTER 2021-12-31 10:01 | Emergency (ER) | payer MEDICAID ==
[~2021-12-31] VITALS: Ht 180.3 cm; Wt 73.9 kg
[2021-12-31 11:22] VITALS: BP 120/88
== END 2021-12-31 11:28 | disposition home or self-care (01) ==
LOC: ER 10:01
DX: S01.81XD Laceration without foreign body of other part of head, subsequent encounter (principal); I10 Essential (primary) hypertension; K21.9 Gastro-esophageal reflux disease without esophagitis; F17.210 Nicotine dependence, cigarettes, uncomplicated; Z79.899 Other long term (current) drug therapy; X58.XXXD Exposure to other specified factors, subsequent encounter

== ENCOUNTER 2022-01-03 08:34 | Emergency (ER) | payer MEDICAID ==
[~2022-01-03] VITALS: Ht 180.3 cm; Wt 73.2 kg
[2022-01-03 08:41] VITALS: BP 131/71
== END 2022-01-03 12:07 | disposition left against medical advice (07) ==
LOC: ER 08:34
DX: M54.9 Dorsalgia, unspecified (principal); G89.29 Other chronic pain; Z53.21 Procedure and treatment not carried out due to patient leaving prior to being seen by health care provider

== ENCOUNTER 2022-01-06 08:09 | Emergency (ER) | payer MEDICAID ==
[~2022-01-06] VITALS: Ht 180.3 cm; Wt 80.0 kg
[2022-01-06] MEDS ORDERED: TRAM-297 PO (08:42)
[2022-01-06 08:45] VITALS: BP 139/91
[2022-01-06] MEDS ORDERED: HYDROcodone-ACET 10/325MG TAB PO ONE (08:45)
== END 2022-01-06 08:52 | disposition home or self-care (01) ==
LOC: ER 08:09
DX: M54.50 Low back pain, unspecified (principal); G89.29 Other chronic pain; M62.838 Other muscle spasm; F17.210 Nicotine dependence, cigarettes, uncomplicated; F12.10 Cannabis abuse, uncomplicated; F15.10 Other stimulant abuse, uncomplicated; K21.9 Gastro-esophageal reflux disease without esophagitis; I10 Essential (primary) hypertension

== ENCOUNTER 2022-01-11 11:38 | Emergency (ER) | payer MEDICAID ==
[~2022-01-11] VITALS: Ht 180.3 cm; Wt 78.0 kg
[~2022-01-11 11:38] MED LIST changes: -CEPH-510 PO; -CYCL-611 PO; -TRAM50TA2 PO
[2022-01-11 13:22] VITALS: BP 158/88
[2022-01-11] MEDS ORDERED: TRAM50TA2 PO ×2 (14:11→14:18)
[2022-01-11] MEDS ORDERED: CYCL-611 PO (14:11)
[2022-01-11] MEDS ORDERED: CEPH-510 PO (14:11)
[2022-01-11] MEDS ORDERED: HYDR-4902 PO (14:18)
== END 2022-01-11 14:41 | disposition home or self-care (01) ==
LOC: ER 11:38
DX: G89.4 Chronic pain syndrome (principal); F17.210 Nicotine dependence, cigarettes, uncomplicated; F12.90 Cannabis use, unspecified, uncomplicated; K21.9 Gastro-esophageal reflux disease without esophagitis; M19.90 Unspecified osteoarthritis, unspecified site; I10 Essential (primary) hypertension

== ENCOUNTER → 2022-01-11 | Emergency (ER) | payer MEDICAID ==
[~2022-01-11] MED LIST changes: +CEPH-510 PO; +CYCL-611 PO; +TRAM50TA2 PO
== END | disposition left against medical advice (07) ==
LOC: ER 04:53
DX: M25.561 Pain in right knee (principal); Z53.21 Procedure and treatment not carried out due to patient leaving prior to being seen by health care provider

== ENCOUNTER 2022-01-19 13:08 | Emergency (ER) | payer MEDICAID ==
[~2022-01-19] VITALS: Ht 180.3 cm; Wt 72.1 kg
[~2022-01-19 13:08] MED LIST changes: +CEPH-510 PO; +CYCL-611 PO; +TRAM50TA2 PO
[2022-01-19 15:20] VITALS: BP 129/75
[2022-01-19] MEDS ORDERED: KETOROLAC TROMETH 60MG/2ML VIAL IM ONE (15:30)
[2022-01-19] MEDS ORDERED: BACL10TA PO (15:37)
[2022-01-19] MEDS ORDERED: CHL12OR MT (15:38)
== END 2022-01-19 16:13 | disposition home or self-care (01) ==
LOC: ER 13:08
DX: S33.5XXA Sprain of ligaments of lumbar spine, initial encounter (principal); M54.16 Radiculopathy, lumbar region; M79.10 Myalgia, unspecified site; K12.0 Recurrent oral aphthae; I10 Essential (primary) hypertension; K21.9 Gastro-esophageal reflux disease without esophagitis; F17.210 Nicotine dependence, cigarettes, uncomplicated; Z79.1 Long term (current) use of non-steroidal anti-inflammatories (NSAID); Z79.899 Other long term (current) drug therapy; X58.XXXA Exposure to other specified factors, initial encounter; Y93.89 Activity, other specified; Y92.89 Other specified places as the place of occurrence of the external cause; Y99.8 Other external cause status
CPT/HCPCS: 96372; 99283; J1885

== ENCOUNTER 2022-01-26 11:55 | Emergency (ER) | payer MEDICAID ==
[~2022-01-26] VITALS: Ht 180.3 cm; Wt 85.0 kg
[~2022-01-26 11:55] MED LIST changes: +BACL10TA PO; +CHL12OR MT
[2022-01-26 12:00] VITALS: BP 121/79
[2022-01-26 16:42] LABS: Urine Bacteria NONE SEEN /hpf (None Seen); Urine Blood Negative /uL (Negative); Urine Mucus FEW (None Seen); Urine Specific Gravity 1.024 (1.001-1.035); Urine WBC <1 /hpf (0 - 3)
[2022-01-26] MEDS ORDERED: BENZ100C19 PO (17:10)
[2022-01-26] MEDS ORDERED: DEXT60TA4 PO (17:10)
== END 2022-01-26 17:22 | disposition home or self-care (01) ==
LOC: ER 11:55
DX: J06.9 Acute upper respiratory infection, unspecified (principal); B97.89 Other viral agents as the cause of diseases classified elsewhere; R30.0 Dysuria; I10 Essential (primary) hypertension; K21.9 Gastro-esophageal reflux disease without esophagitis; F17.210 Nicotine dependence, cigarettes, uncomplicated; Z79.1 Long term (current) use of non-steroidal anti-inflammatories (NSAID); Z79.899 Other long term (current) drug therapy
CPT/HCPCS: 81001

== ENCOUNTER 2022-02-17 06:18 | Emergency (ER) | payer MEDICAID ==
[~2022-02-17] VITALS: Ht 180.3 cm; Wt 81.0 kg
[~2022-02-17 06:18] MED LIST changes: +BENZ100C19 PO; +DEXT60TA4 PO
[2022-02-17] MEDS ORDERED: AZIT250T8 PO (08:16)
[2022-02-17] MEDS ORDERED: PROM1SOL4 PO (08:16)
[2022-02-17] MEDS ORDERED: PRED20TA2 PO (08:16)
[2022-02-17 08:18] VITALS: BP 156/98
== END 2022-02-17 08:21 | disposition home or self-care (01) ==
LOC: ER 06:25
DX: J20.9 Acute bronchitis, unspecified (principal); K21.9 Gastro-esophageal reflux disease without esophagitis; I10 Essential (primary) hypertension; F17.210 Nicotine dependence, cigarettes, uncomplicated; F12.90 Cannabis use, unspecified, uncomplicated; F15.90 Other stimulant use, unspecified, uncomplicated; Z98.890 Other specified postprocedural states
CPT/HCPCS: 71046

== ENCOUNTER 2022-03-14 11:59 | Emergency (ER) | payer MEDICAID ==
[~2022-03-14 11:59] MED LIST changes: +AZIT250T8 PO; +PROM1SOL4 PO
== END 2022-03-14 13:39 | disposition left against medical advice (07) ==
LOC: ER 11:59
DX: R05.9 Cough, unspecified (principal); Z53.21 Procedure and treatment not carried out due to patient leaving prior to being seen by health care provider

== ENCOUNTER 2022-03-24 12:00 | Emergency (ER) | payer MEDICAID ==
[~2022-03-24] VITALS: Ht 180.3 cm; Wt 170.0 kg
[~2022-03-24 12:00] MED LIST changes: +IBUP800T26 PO
[2022-03-24 13:08] VITALS: BP 130/93
[2022-03-24] MEDS ORDERED: KETOROLAC TROMETH 60MG/2ML VIAL IM ONE (14:30)
[2022-03-24] MEDS ORDERED: ACET-1080 PO (14:50)
== END 2022-03-24 14:56 | disposition home or self-care (01) ==
LOC: ER 12:00
DX: M24.9 Joint derangement, unspecified (principal); I10 Essential (primary) hypertension; K21.9 Gastro-esophageal reflux disease without esophagitis; F17.210 Nicotine dependence, cigarettes, uncomplicated; Z79.1 Long term (current) use of non-steroidal anti-inflammatories (NSAID); Z79.899 Other long term (current) drug therapy
CPT/HCPCS: 73030; 96372

== ENCOUNTER 2022-03-25 13:39 | Emergency (ER) | payer MEDICAID ==
[~2022-03-25] VITALS: Ht 180.3 cm; Wt 75.1 kg
[2022-03-25] MEDS ORDERED: HYDROcodone-ACET 10/325MG TAB PO ONE (14:00)
[2022-03-25 14:22] LABS: Basophils # (auto) 0.1 10 ^3/uL (0-0.2); Basophils % (auto) 1.3 % (0.0-2.0); Eosinophils # (auto) 0.2 10 ^3/uL (0-0.8); Eosinophils % (auto) 3.3 % (0.0-7.0); Hematocrit 43.3 % (41.0-53.0); Hemoglobin 14.6 g/dL (13.5-17.5); Lymphocytes # (auto) 1.3 10 ^3/uL (0.4-5.4); Lymphocytes % (auto) 22.1 % (10.0-50.0); Mean Corpuscular Hemoglobin 32.7 pg (28.0-32.0); Mean Corpuscular Hgb Conc. 33.6 g/dL (32.0-36.0); Mean Corpuscular Volume 97.3 fL (80.0-100.0); Monocytes # (auto) 0.5 10 ^3/uL (0-1.3); Monocytes % (auto) 7.8 % (0.0-12.0); Neutrophils # (auto) 3.9 10 ^3/uL (1.6-8.6); Neutrophils % (auto) 65.5 % (37.0-80.0); Nucleated Red Blood Cells % 0.1 %; Red Blood Cells 4.45 10^6/uL (4.5-5.90); Red Cell Distribution Width 13.7 % (11.8-14.3)
[2022-03-25 14:54] LABS: Albumin 3.9 g/dL (3.4-5.0); Calcium 9.5 mg/dL (8.5-10.1); Potassium 4.4 mmol/L (3.5-5.1)
[2022-03-25 14:56] LABS: BUN/Creatinine Ratio 17.8
[2022-03-25 15:19] LABS: Bilirubin, Total 0.5 mg/dL (0.2-1.0); Total Protein 7.1 g/dL (6.4-8.2)
[2022-03-25 16:44] VITALS: BP 130/51
== END 2022-03-25 17:15 | disposition home or self-care (01) ==
LOC: ER 13:39
DX: R10.9 Unspecified abdominal pain (principal); R51.9 Headache, unspecified; R11.0 Nausea; I10 Essential (primary) hypertension; K21.9 Gastro-esophageal reflux disease without esophagitis; F17.210 Nicotine dependence, cigarettes, uncomplicated; Z79.1 Long term (current) use of non-steroidal anti-inflammatories (NSAID); Z79.2 Long term (current) use of antibiotics; Z79.899 Other long term (current) drug therapy
CPT/HCPCS: 36415; 74176; 80053; 85025

== ENCOUNTER 2022-07-22 16:00 | Emergency (ER) | payer MEDICAID ==
[~2022-07-22] VITALS: Ht 180.3 cm; Wt 79.0 kg
[2022-07-22 16:51] VITALS: BP 122/71
[2022-07-22] MEDS ORDERED: HYDROcodone-ACET 5/325MG TAB PO ONE (17:30)
[2022-07-22] MEDS ORDERED: KETOROLAC TROMETH 60MG/2ML VIAL IM ONE (17:30)
[2022-07-22] MEDS ORDERED: MELO7.5T9 PO (17:48)
== END 2022-07-22 17:51 | disposition home or self-care (01) ==
LOC: ER 16:00
DX: M17.11 Unilateral primary osteoarthritis, right knee (principal); I10 Essential (primary) hypertension; K21.9 Gastro-esophageal reflux disease without esophagitis; F17.210 Nicotine dependence, cigarettes, uncomplicated; F12.10 Cannabis abuse, uncomplicated; F15.10 Other stimulant abuse, uncomplicated; Z88.6 Allergy status to analgesic agent; Z88.8 Allergy status to other drugs, medicaments and biological substances
CPT/HCPCS: 73562; 96372; 99283; J1885

== ENCOUNTER 2022-07-29 08:37 | Emergency (ER) | payer MEDICAID ==
[~2022-07-29] VITALS: Ht 180.3 cm; Wt 79.7 kg
[2022-07-29 09:34] LABS: Basophils # (auto) 0 10 ^3/uL (0-0.2); Basophils % (auto) 0.6 % (0.0-2.0); Eosinophils # (auto) 0.3 10 ^3/uL (0-0.8); Hematocrit 39.4 % (41.0-53.0); Hemoglobin 13.3 g/dL (13.5-17.5); Lymphocytes # (auto) 1.5 10 ^3/uL (0.4-5.4); Lymphocytes % (auto) 21.4 % (10.0-50.0); Mean Corpuscular Hemoglobin 32.6 pg (28.0-32.0); Mean Corpuscular Hgb Conc. 33.8 g/dL (32.0-36.0); Mean Corpuscular Volume 96.2 fL (80.0-100.0); Monocytes # (auto) 0.5 10 ^3/uL (0-1.3); Monocytes % (auto) 7.4 % (0.0-12.0); Neutrophils # (auto) 4.7 10 ^3/uL (1.6-8.6); Neutrophils % (auto) 66.6 % (37.0-80.0); Nucleated Red Blood Cells % 0.1 %
[2022-07-29 09:35] VITALS: BP 124/82
[2022-07-29 09:49] LABS: Albumin 3.9 g/dL (3.4-5.0); Calcium 8.5 mg/dL (8.5-10.1); Potassium 3.7 mmol/L (3.5-5.1)
[2022-07-29 09:53] LABS: BUN/Creatinine Ratio 39.3 (10.0-20.0); Bilirubin, Total 1.3 mg/dL (0.2-1.0); Total Protein 7.6 g/dL (6.4-8.2)
[2022-07-29 11:24] LABS: Urine Bacteria NONE SEEN /hpf (None Seen); Urine Blood TRACE /uL (Negative); Urine Hyaline Cast FEW /lpf (0 - 2); Urine Mucus FEW (None Seen); Urine Specific Gravity 1.022 (1.001-1.035); Urine WBC 30 /hpf (0 - 3)
[2022-07-29] MEDS ORDERED: CIPR-173 PO (11:31)
== END 2022-07-29 11:40 | disposition home or self-care (01) ==
LOC: ER 08:37
DX: N39.0 Urinary tract infection, site not specified (principal); R33.9 Retention of urine, unspecified; N32.3 Diverticulum of bladder
CPT/HCPCS: 36415; 74176; 80053; 81001; 85025

== ENCOUNTER 2022-07-30 09:13 | Emergency (ER) | payer MEDICAID ==
[~2022-07-30] VITALS: Ht 180.3 cm; Wt 85.0 kg
[2022-07-30] MEDS ORDERED: LIDOCAINE 2% JELLY 11ml (GLYDO) ONE (09:40)
[2022-07-30] MEDS ORDERED: KETOROLAC TROMETH 30 MG/ML 1ML VIAL IV ONE (11:00)
[2022-07-30] MEDS ORDERED: MORPHINE SULFATE INJ 2 MG/ml SYRG IV ONE (11:00)
[2022-07-30] MEDS ORDERED: KETOROLAC TROMETH 30 MG/ML 1ML VIAL IM ONE (11:00)
[2022-07-30] MEDS ORDERED: MORPHINE SULFATE INJ 2 MG/ml SYRG IM ONE (11:00)
[2022-07-30 11:15] LABS: Basophils # (auto) 0.1 10 ^3/uL (0-0.2); Basophils % (auto) 0.9 % (0.0-2.0); Eosinophils # (auto) 0.1 10 ^3/uL (0-0.8); Eosinophils % (auto) 1.8 % (0.0-7.0); Hematocrit 39.6 % (41.0-53.0); Hemoglobin 13.6 g/dL (13.5-17.5); Lymphocytes # (auto) 0.9 10 ^3/uL (0.4-5.4); Lymphocytes % (auto) 13.8 % (10.0-50.0); Mean Corpuscular Hemoglobin 32.9 pg (28.0-32.0); Mean Corpuscular Hgb Conc. 34.3 g/dL (32.0-36.0); Mean Corpuscular Volume 95.9 fL (80.0-100.0); Monocytes # (auto) 0.5 10 ^3/uL (0-1.3); Monocytes % (auto) 7.1 % (0.0-12.0); Neutrophils # (auto) 5.2 10 ^3/uL (1.6-8.6); Neutrophils % (auto) 76.4 % (37.0-80.0); Red Blood Cells 4.13 10^6/uL (4.5-5.90); Red Cell Distribution Width 14.1 % (11.8-14.3); White Blood Cell 6.8 10^3/uL (4.4-10.8)
[2022-07-30 11:31] LABS: INR 0.93 (0.9-1.15); Partial Thromboplastin Time 26.2 sec (24.6-33.4)
[2022-07-30 11:54] LABS: Calcium 8.9 mg/dL (8.5-10.1); Potassium 5.4 mmol/L (3.5-5.1)
[2022-07-30 12:01] LABS: Albumin 3.7 g/dL (3.4-5.0); BUN/Creatinine Ratio 44.2 (10.0-20.0); Total Protein 7.9 g/dL (6.4-8.2)
[2022-07-30 13:18] LABS: Urine Bacteria NONE SEEN /hpf (None Seen); Urine Blood 2+ /uL (Negative); Urine Hyaline Cast FEW /lpf (0 - 2); Urine Mucus FEW (None Seen); Urine Specific Gravity 1.021 (1.001-1.035); Urine WBC 17 /hpf (0 - 3)
[2022-07-30] MEDS ORDERED: SODIUM ZIRCONIUM CYCL 10 GM PAK PO ONE (14:15)
[2022-07-30 14:44] VITALS: BP 109/64
[2022-07-30] MEDS ORDERED: LIDOCAINE 2% JELLY 11ml (GLYDO) UR ONE (14:45)
== END 2022-07-30 14:42 | disposition home or self-care (01) ==
LOC: ER 09:13
DX: R33.9 Retention of urine, unspecified (principal); E87.5 Hyperkalemia; I12.9 Hypertensive chronic kidney disease with stage 1 through stage 4 chronic kidney disease, or unspecified chronic kidney disease; N18.9 Chronic kidney disease, unspecified; K21.9 Gastro-esophageal reflux disease without esophagitis; F17.210 Nicotine dependence, cigarettes, uncomplicated; F12.10 Cannabis abuse, uncomplicated; F15.10 Other stimulant abuse, uncomplicated; Z79.01 Long term (current) use of anticoagulants; Z88.6 Allergy status to analgesic agent; Z88.1 Allergy status to other antibiotic agents
CPT/HCPCS: 36415; 51702; 80053; 81001; 85025; 85610; 85730; 86850; 86900; 86901; 87086; 93005; 96374; 96375; 99284; J1885; J2270

== ENCOUNTER 2022-08-06 12:37 | Emergency (ER) | payer MEDICAID ==
[~2022-08-06] VITALS: Ht 177.8 cm; Wt 78.4 kg
[2022-08-06 13:51] VITALS: BP 157/99
[2022-08-06] MEDS ORDERED: cefTRIAXone SOD 1,000 MG VL IM ONE (14:45)
[2022-08-06 15:11] LABS: Urine Bacteria FEW /hpf (None Seen); Urine Blood 3+ /uL (Negative); Urine Mucus FEW (None Seen); Urine Specific Gravity 1.022 (1.001-1.035); Urine WBC 11 /hpf (0 - 3)
== END 2022-08-06 15:17 | disposition home or self-care (01) ==
LOC: ER 12:37
DX: N39.0 Urinary tract infection, site not specified (principal); F17.210 Nicotine dependence, cigarettes, uncomplicated; F12.10 Cannabis abuse, uncomplicated; F15.10 Other stimulant abuse, uncomplicated; M19.90 Unspecified osteoarthritis, unspecified site; I12.9 Hypertensive chronic kidney disease with stage 1 through stage 4 chronic kidney disease, or unspecified chronic kidney disease; N18.9 Chronic kidney disease, unspecified; K21.9 Gastro-esophageal reflux disease without esophagitis; G89.29 Other chronic pain
CPT/HCPCS: 81001; 96372; 99283; J0696

== ENCOUNTER 2022-09-12 10:19 | Emergency (ER) | payer MEDICAID ==
[~2022-09-12] VITALS: Ht 180.3 cm; Wt 74.5 kg
[~2022-09-12 10:19] MED LIST changes: +AZIT-81 PO; -AZIT250T8 PO; +IBUP-1455 PO; +IBUP-1456 PO; -IBUP800T26 PO; -IBUP800T27 PO
[2022-09-12 10:32] VITALS: BP 132/97
[2022-09-12] MEDS ORDERED: NEOMYCIN-BACITRACIN-POLYM UNITDOSE PKG TOP OINT TOP STA (11:37)
== END 2022-09-12 11:53 | disposition home or self-care (01) ==
LOC: ER 10:19
DX: Z48.01 Encounter for change or removal of surgical wound dressing (principal); M19.90 Unspecified osteoarthritis, unspecified site; I12.9 Hypertensive chronic kidney disease with stage 1 through stage 4 chronic kidney disease, or unspecified chronic kidney disease; N18.9 Chronic kidney disease, unspecified; K21.9 Gastro-esophageal reflux disease without esophagitis; F17.210 Nicotine dependence, cigarettes, uncomplicated; F15.90 Other stimulant use, unspecified, uncomplicated; F19.90 Other psychoactive substance use, unspecified, uncomplicated; Z79.1 Long term (current) use of non-steroidal anti-inflammatories (NSAID); Z98.890 Other specified postprocedural states; Z79.899 Other long term (current) drug therapy

== ENCOUNTER 2022-09-30 10:03 | Emergency (ER) | payer MEDICAID ==
[~2022-09-30] VITALS: Ht 180.3 cm; Wt 76.9 kg
[~2022-09-30 10:03] MED LIST changes: +FIN5T PO; +TAMS0.4C36 PO
[2022-09-30 11:12] LABS: Basophils # (auto) 0 10 ^3/uL (0-0.2); Basophils % (auto) 0.4 % (0.0-2.0); Eosinophils # (auto) 0.2 10 ^3/uL (0-0.8); Eosinophils % (auto) 3.1 % (0.0-7.0); Hematocrit 39.2 % (41.0-53.0); Hemoglobin 13.2 g/dL (13.5-17.5); Lymphocytes # (auto) 0.8 10 ^3/uL (0.4-5.4); Lymphocytes % (auto) 10.5 % (10.0-50.0); Mean Corpuscular Hemoglobin 32.4 pg (28.0-32.0); Mean Corpuscular Hgb Conc. 33.6 g/dL (32.0-36.0); Mean Corpuscular Volume 96.5 fL (80.0-100.0); Monocytes # (auto) 0.4 10 ^3/uL (0-1.3); Neutrophils # (auto) 5.7 10 ^3/uL (1.6-8.6); Red Blood Cells 4.06 10^6/uL (4.5-5.90); Red Cell Distribution Width 14.1 % (11.8-14.3); White Blood Cell 7.2 10^3/uL (4.4-10.8)
[2022-09-30 11:27] LABS: Urine Bacteria FEW /hpf (None Seen); Urine Blood 3+ /uL (Negative); Urine Mucus FEW (None Seen); Urine Specific Gravity 1.023 (1.001-1.035); Urine WBC 231 /hpf (0 - 3)
[2022-09-30 11:35] LABS: Albumin 4.1 g/dL (3.4-5.0); Calcium 8.8 mg/dL (8.5-10.1); Magnesium 2.7 mg/dL (1.6-2.6)
[2022-09-30 11:39] LABS: Bilirubin, Total 1.5 mg/dL (0.2-1.0); Total Protein 7.4 g/dL (6.4-8.2)
[2022-09-30] MEDS ORDERED: CEPH250C PO (13:52)
[2022-09-30] MEDS ORDERED: SODIUM CHLORIDE 0.9% 1,000 ML IV ONE (14:00)
[2022-09-30 15:32] VITALS: PULSE 99
[2022-09-30] MEDS ORDERED: KETOROLAC TROMETH 60MG/2ML VIAL IM ONE (16:00)
[2022-09-30] MEDS ORDERED: KETOROLAC TROMETH 60MG/2ML VIAL IV ONE (16:15)
[2022-09-30 16:16] VITALS: BP 118/74; PULSE 98; RESP 15; TEMP 97; O2SAT 97
== END 2022-09-30 16:17 | disposition home or self-care (01) ==
LOC: ER 10:03
DX: N39.0 Urinary tract infection, site not specified (principal); M62.82 Rhabdomyolysis; F15.10 Other stimulant abuse, uncomplicated; I12.9 Hypertensive chronic kidney disease with stage 1 through stage 4 chronic kidney disease, or unspecified chronic kidney disease; N18.9 Chronic kidney disease, unspecified; K21.9 Gastro-esophageal reflux disease without esophagitis; F17.210 Nicotine dependence, cigarettes, uncomplicated; F12.10 Cannabis abuse, uncomplicated
CPT/HCPCS: 36415; 71045; 80053; 81001; 82550; 83605; 83735; 84484; 85025; 96361; 96374; 99284; J1885; J7030

== ENCOUNTER 2022-12-12 12:13 | Emergency (ER) | payer MEDICAID ==
[~2022-12-12] VITALS: Ht 162.6 cm; Wt 75.0 kg
[~2022-12-12 12:13] MED LIST changes: +CEPH250C PO
[2022-12-12 13:49] VITALS: BP 123/80; PULSE 101; RESP 17; TEMP 97.4; O2SAT 96
[2022-12-12] MEDS ORDERED: KETOROLAC TROMETH 60MG/2ML VIAL IM ONE (15:15)
[2022-12-12] MEDS ORDERED: TRAM50TA2 PO (15:27)
[2022-12-12] MEDS ORDERED: LIDO2SOL26 MT (15:27)
== END 2022-12-12 15:36 | disposition home or self-care (01) ==
LOC: ER 12:13
DX: G89.29 Other chronic pain (principal); M54.59 Other low back pain; K21.9 Gastro-esophageal reflux disease without esophagitis; I10 Essential (primary) hypertension; F17.210 Nicotine dependence, cigarettes, uncomplicated; F12.90 Cannabis use, unspecified, uncomplicated; F15.90 Other stimulant use, unspecified, uncomplicated; Z79.899 Other long term (current) drug therapy
CPT/HCPCS: 96372; 99283; J1885

== ENCOUNTER 2022-12-20 07:48 | Emergency (ER) | payer MEDICAID ==
[~2022-12-20] VITALS: Ht 180.3 cm; Wt 75.3 kg
[~2022-12-20 07:48] MED LIST changes: +LIDO2SOL26 MT
[2022-12-20] MEDS ORDERED: cloNIDine HCL 0.1 MG TAB PO ONE (08:00)
[2022-12-20] MEDS ORDERED: KETOROLAC TROMETH 60MG/2ML VIAL IM ONE (08:45)
[2022-12-20] MEDS ORDERED: HYDROcodone-ACET 10/325MG TAB PO ONE (08:45)
[2022-12-20 09:20] VITALS: BP 153/99; PULSE 105; RESP 16; O2SAT 96
[2022-12-20] MEDS ORDERED: HYDR-4798 PO (09:22)
[2022-12-20] MEDS ORDERED: IBUP-1455 PO (09:22)
== END 2022-12-20 09:49 | disposition home or self-care (01) ==
LOC: ER 07:48
DX: G89.29 Other chronic pain (principal); M54.50 Low back pain, unspecified; I12.9 Hypertensive chronic kidney disease with stage 1 through stage 4 chronic kidney disease, or unspecified chronic kidney disease; N18.9 Chronic kidney disease, unspecified; K21.9 Gastro-esophageal reflux disease without esophagitis; F17.210 Nicotine dependence, cigarettes, uncomplicated; Z79.1 Long term (current) use of non-steroidal anti-inflammatories (NSAID); Z79.899 Other long term (current) drug therapy; Z88.8 Allergy status to other drugs, medicaments and biological substances
CPT/HCPCS: 96372; 99283; J1885

== ENCOUNTER 2023-05-07 11:24 | Emergency (ER) | payer MEDICAID ==
[~2023-05-07] VITALS: Ht 180.3 cm; Wt 72.8 kg
[~2023-05-07 11:24] MED LIST changes: +HYDR-4798 PO
[2023-05-07] MEDS ORDERED: CIPR-173 PO (14:42)
[2023-05-07] MEDS ORDERED: BACDST PO (14:42)
[2023-05-07] MEDS ORDERED: HYDR-4902 PO (14:43)
[2023-05-07 14:49] VITALS: BP 108/64; PULSE 99; RESP 16; O2SAT 100
== END 2023-05-07 14:51 | disposition home or self-care (01) ==
LOC: ER 11:24
DX: L03.114 Cellulitis of left upper limb (principal); I12.9 Hypertensive chronic kidney disease with stage 1 through stage 4 chronic kidney disease, or unspecified chronic kidney disease; N18.9 Chronic kidney disease, unspecified; K21.9 Gastro-esophageal reflux disease without esophagitis; F17.210 Nicotine dependence, cigarettes, uncomplicated; M19.90 Unspecified osteoarthritis, unspecified site; F15.90 Other stimulant use, unspecified, uncomplicated; Z98.890 Other specified postprocedural states; Z88.8 Allergy status to other drugs, medicaments and biological substances; Z79.899 Other long term (current) drug therapy

== ENCOUNTER 2023-08-25 13:20 | Emergency (ER) | payer MEDICAID ==
[~2023-08-25] VITALS: Ht 180.3 cm; Wt 70.7 kg
[~2023-08-25 13:20] MED LIST changes: +AZIT-185 PO; -AZIT-81 PO; +BACDST PO
[2023-08-25 13:29] VITALS: BP 170/108; PULSE 105; RESP 18; O2SAT 94
== END 2023-08-25 14:57 | disposition left against medical advice (07) ==
LOC: ER 13:24
DX: R10.9 Unspecified abdominal pain (principal); R11.2 Nausea with vomiting, unspecified; Z53.21 Procedure and treatment not carried out due to patient leaving prior to being seen by health care provider

== ENCOUNTER 2024-02-24 10:01 | Emergency (ER) | payer MEDICAID ==
[~2024-02-24] VITALS: Ht 180.3 cm; Wt 78.4 kg
[~2024-02-24 10:01] MED LIST changes: -TAMS0.4C36 PO; +TAMS0.4C39 PO
--- NOTE | 2024-02-24 10:43 | ED.PDOC ---
General HPI Comments HPI: Poor Historian. 58-year-old male presents to the emergency department for evaluation of low blood pressure this morning. Patient has checked his blood pressure this morning and it was low when he was sitting versus standing he called the nurse at the NH who advised him to go to the hospital. Patient took all his blood pressure medications despite his low blood pressure reading. Patient denies any acute pain. Denies any chest pain or shortness of breath. Patient states he feels fatigued but that is normal for him but he said has got worse in the last couple of days. VITALS: Temp: 97.7F RR: 16 02 sat : 98 % on room air HR: 89 BP: 127/91 PMH: HTN, ETOH abuse PSH: R shoulder, prostate surgery, hernia Social history: endorses tobacco use, endorses ETOH use, endorses drug use(METH) Medications: denies Allergies: nkda REVIEW OF SYSTEMS: CONSTITUTIONAL: Denies acute: fever, diaphoresis, chills, HEAD: Denies acute: headache, photophobia Eyes: Denies acute: Double vision, vision loss, eye pain, eye discharge. EARS: Denies acute: tinnitus, hearing loss, ear discharge, ear pain, THROAT: Denies acute: sore throat, swelling, difficulty swallowing , pain with swallowing, change in voice. NECK: Denies acute: neck pain, neck swelling, stiff neck. HEART: Denies acute : chest pain, palpitations, LUNGS: Denies acute: SOB, wheezing, cough, hemoptysis ABDOMEN: Denies acute: abdominal pain, Nausea, Vomiting, diarrhea, melena , hematemesis, hematochezia SKIN: Denies acute: rash, redness, lesions, itchiness. EXTREMITIES: Denies acute: calf pain, numbness, tingling, weakness, denies pain in extremity. Denies acute: Low back pain. Neuro: Denies acute: focal neurological deficit, motor or sensory focal neurological deficit, tremors, seizure like activity, confusion, dizziness, change in mental status, loss of bowel or bladder function, cauda equina like symptoms. : Denies acute: dysuria, hematuria, flank pain, increase in urinary frequency. PSYCH: Denies acute: hallucination, suicidal ideation, homicidal ideation. PHYSICAL EXAM: General: no acute distress, awake and alert. Head: normocephalic, atraumatic. Neck: supple, trachea is midline, no swelling. Throat: Normal phonation. Eyes:, no erythema, no purulent discharge, no proptosis, no icterus. Heart: regular rate, regular rhythm, no significant murmur appreciated. Lungs: no apparent respiratory distress, Able to speak in full sentences. No wheezing, no rhonchi, no crackles. No stridors Clear to auscultation bilaterally. Abdomen: non tender to palpation, non distended, soft, no guarding, no rebound, + bowel sounds. Neuro: Awake, Alert, oriented to name, self, situation, follows commands GCS=15. Speech is normal. Skin: no petechia, no purpura, no cyanosis, non-pale, not jaundice. Lower extremities: --1/4 - Pitting edema no deformity, no focal swelling, no calf TTP. Makes eye contact. moves all four extremities. Face: no apparent facial droop. Ambulating in the ED independently. Chief Complaint: Urinary Time Seen by MD: 10:19 Primary Care Provider: CHOICE Reviewed notes: Nurses Notes, Medications, Allergies Allergies: Coded Allergies: Prednisone (Verified Allergy, Unknown, 12/20/22) Home Meds Active Scripts Cephalexin Monohydrate (Cephalexin) 500 Mg Cap, 500 MG PO Q8HR for 7 Days, #21 CAP Prov:PRISCA SALINAS DO 02/24/24 Hydrocodone-Acetaminophen (Hydrocodone Bitartrate/AC 5-325 mg) 1 Tab Tab, 1 TAB PO Q8HPRN PRN for 5 Days, #8 TAB Prov:JASS KNIGHTP 05/07/23 Sulfamethoxazole W/Trimethopri (Bactrim Ds Tablet) 1 Tab Tb, 1 TAB PO BID for 7 Days, #14 TAB Prov:JASS KNIGHT [employer] 05/07/23 Ciprofloxacin Hcl (Cipro) 500 Mg Tab, 1 TAB PO BID for 7 Days, #14 TAB Prov:JASS KNIGHTP 05/07/23 Hydrocodone-Acetaminophen (Hydrocodone Bitartrate/AC 10-325 mg) 1 Tab Tab, 1 TAB PO Q8HP PRN, #10 TAB Prov:MARIBETH DIOP PAC 12/20/22 Ibuprofen Micronized (Ibuprofen) 800 Mg Tab, 800 MG PO Q8HP PRN, #30 TAB Prov:MARIBETH DIOP PAC 12/20/22 Lidocaine HCl (Mouth-Throat) (Lidocaine HCl Viscous) 2 % Yaima, 5 ML MT TID, #100 ML Prov:BONIFACIO GALLEGOS 12/12/22 Tramadol Hcl (Tramadol Hcl) 50 Mg Tab, 50 MG PO TID, #20 TAB Prov:BONIFACIO GALLEGOS 12/12/22 Cephalexin (KEFLEX CAPSULE) 250 Mg Cp, 1 CAP PO QID for 7 Days, #28 CAP Prov:PRISCA SALINAS DO 09/30/22 Ciprofloxacin Hcl (Cipro) 500 Mg Tab, 1 TAB PO BID, #20 TAB Prov:BONIFACIO GALLEGOS 07/29/22 Meloxicam (Mobic) 7.5 Mg Tab, 7.5 MG PO BID, #30 TAB Prov:BONIFACIO GALLEGOS 07/22/22 Acetaminophen (Tylenol 8 Hour Arthritis) 650 Mg Tab, 650 MG PO TID, #30 TAB Prov:BONIFACIO GALLEGOS 03/24/22 Hydrocodone-Acetaminophen (Hydrocodone Bitartrate/AC 5-325 mg) 1 Tab Tab, 1 TAB PO Q6HPRN PRN, #15 TAB Prov:MARIBETH DIOP PAC 03/23/22 Cyclobenzaprine Hcl (Cyclobenzaprine Hcl) 10 Mg Tab, 10 MG PO TIDP PRN, #20 TAB Prov:MARIBETH DIOP PAC 03/23/22 Ibuprofen Micronized (Ibuprofen) 800 Mg Tab, 800 MG PO TIDP PRN, #30 TAB Prov:MARIBETH DIOP PAC 03/23/22 Promethazine-Dm (Promethazine Dm 6.25-15 mg/5Ml) 1 Yaima Yaima, 5 ML PO TID, #150 ML Prov:BONIFACIO GALLEGOS 02/17/22 Prednisone (Prednisone) 20 Mg Tab, 60 MG PO DAILY, #15 MG Prov:BONIFACIO GALLEGOS 02/17/22 Azithromycin (ZITHROMAX TABLET) 250 Mg Tb, 250 MG PO DAILY, #6 TAB Prov:BONIFACIO GALLEGOS 02/17/22 Benzonatate (Tessalon Perles) 100 Mg Cap, 1 CAP PO TID for 7 Days, #21 CAP Prov:MARIBETH DIOP PAC 01/26/22 Dextromethorphan-Guaifenesin (Mucinex Dm Maximum Streng) 1 Tab Tab, 1 TAB PO BID for 5 Days, #10 TAB Prov:JADONMARIBETH KENDRICK [facility] 01/26/22 Chlorhexidine Gluconate (Mouth (CHLORHEXIDINE ORAL RINSE) 473 Ml So, 15 ML MT Q12HR, #200 ML Prov:JOSE F [employer] 01/19/22 Baclofen (Baclofen) 10 Mg Tab, 10 MG PO TID, #30 TAB Prov:JOSE F [employer] 01/19/22 Hydrocodone-Acetaminophen (Hydrocodone Bitartrate/AC 5-325 mg) 1 Tab Tab, 1 TAB PO TID for 7 Days, #21 TAB Prov:JADONMARIBETH Carolyn [facility] 01/11/22 Tramadol Hcl (Tramadol Hcl) 50 Mg Tab, 50 MG PO BID for 10 Days, #20 TAB Prov:JADONMARIBETH Carolyn [facility] 01/11/22 Cyclobenzaprine HCl (Cyclobenzaprine Hydrochlo) 10 Mg Tab, 10 MG PO BID for 10 Days, #20 TAB Prov:JADONMARIBETH Carolyn [facility] 01/11/22 Cephalexin ( Keflex 500) 500 Mg Cap, 1 CAP PO QID for 10 Days, #40 CAP Prov:JADONMARIBETH Carolyn [facility] 01/11/22 Tramadol Hcl (Ultram) 50 Mg Tab, 1 TAB PO BID, #20 TAB Prov:BONIFACIO GALLEGOS 01/06/22 Hydrocodone-Acetaminophen (Hydrocodone Bitartrate/AC 5-325 mg) 1 Tab Tab, 1 TAB PO BID, #10 TAB Prov:BONIFACIO GALLEGOS 12/23/21 Ciprofloxacin Hcl (Cipro) 500 Mg Tab, 1 TAB PO BID, #14 TAB Prov:BONIFACIO GALLEGOS 12/23/21 Prednisone (Prednisone) 20 Mg Tab, 40 MG PO DAILY, #20 MG Prov:BONIFACIO GALLEGOS 12/15/21 Meloxicam (Mobic) 7.5 Mg Tab, 7.5 MG PO BID, #30 TAB Prov:BONIFACIO GALLEGOS 12/15/21 Tramadol Hcl (Ultram) 50 Mg Tab, 1 TAB PO BID, #20 TAB Prov:BONIFACIO GALLEGOS 11/17/21 Tramadol Hcl (Ultram) 50 Mg Tab, 50 MG PO BID, #20 TAB Prov:BONIFACIO GALLEGOS 10/27/21 Pantoprazole Sodium Sesquihydr (Protonix) 40 Mg Tab, 40 MG PO DAILY, #20 TAB Prov:BONIFACIO GALLEGOS 09/30/21 Tramadol Hcl (Ultram) 50 Mg Tab, 50 MG PO BID, #20 TAB Prov:BONIFACIO GALLEGOS 09/30/21 Ibuprofen (Ibuprofen) 800 Mg Tab, 800 MG PO TID PRN, #30 TAB Prov:BONIFACIO GALLEGOS 09/08/21 Cyclobenzaprine Hcl (Cyclobenzaprine Hcl) 5 Mg Tab, 10 MG PO BID, #20 TAB Prov:BONIFACIO GALLEGOS 09/03/21 Acetaminophen (Tylenol 8 Hour Arthritis) 650 Mg Tab, 650 MG PO TID, #30 TAB Prov:BONIFACIO GALLEGOS 08/25/21 Cyclobenzaprine Hcl (Cyclobenzaprine Hcl) 10 Mg Tab, 10 MG PO QHSP PRN, #20 TAB Prov:BONIFACIO GALLEGOS 08/14/21 Ibuprofen (Ibuprofen) 800 Mg Tab, 800 MG PO TID PRN, #30 TAB Prov:BONIFACIO GALLEGOS 08/14/21 Naproxen (NAPROSYN TABLET) 500 Mg Tb, 1 TAB PO BID PRN, #30 TAB 0 Refills Prov:KARLOS MAHAJAN 06/09/21 Cyclobenzaprine Hcl (Cyclobenzaprine Hcl) 5 Mg Tab, 1 TAB PO QPM PRN, #14 TAB 0 Refills Prov:KARLOS MAHAJAN 06/09/21 Reported Medications Tamsulosin Hcl (Tamsulosin Hcl) 0.4 Mg Cap, 2 CAP PO DAILY 09/28/22 Finasteride (Finasteride) 5 Mg Tab, 1 TAB PO DAILY 09/28/22 Information Source: Patient Mode of Arrival: Ambulatory Past Medical History PAST MEDICAL HISTORY: Arthritis, CKF, GERD, HTN, UTI'S Surgical History: Hernia Repair Family History Family History: Reviewed,noncontributory to illness, No family hx of Cancer, No family hx of DM, No family hx of Heart araceli Social History Smoker: Cigarettes, Less Than 1 Pack/Day Alcohol: Occasionally Drugs: Marijuana, Methamphetamine Lives In: Home Was a procedure done? Was a procedure done?: No X-Ray, Labs, Meds, VS Vital Signs Date Time Temp Pulse Resp B/P (MAP) Pulse Ox O2 Delivery O2 Flow Rate FiO2 02/24/24 12:22 98.3 90 20 154/87 (109) 95 98.3 02/24/24 10:33 Room Air* 0 21 02/24/24 10:13 97.7 89 16 127/91 (103) 98 Lab Test 02/24/24 10:35 02/24/24 10:15 Range/Units Urine Color Yellow Yellow Urine Clarity Clear Clear Urine pH 6.0 5.0-9.0 Urine Specific Mclean 1.025 1.001-1.035 Urine Protein Trace H Negative Urine Ketones Negative Negative Urine Blood 1+ H Negative /uL Urine Nitrite Negative Negative Urine Bilirubin Negative Negative Urine Urobilinogen Normal Negative mg/dL Urine Leukocyte Esterase 1+ Negative /uL Urine RBC 90 0 - 3 /hpf Urine WBC 27 0 - 3 /hpf Urine Squamous Epithelial Cells Few <5 /hpf Urine Bacteria None seen None Seen /hpf Urine Mucus Few None Seen Urine Glucose Normal Normal mg/dL White Blood Count 6.5 4.4-10.8 10^3/uL Red Blood Count 4.46 L 4.5-5.90 10^6/uL Hemoglobin 14.8 13.5-17.5 g/dL Hematocrit 43.4 41.0-53.0 % Mean Corpuscular Volume 97.2 80.0-100.0 fL Mean Corpuscular Hemoglobin 33.2 H 28.0-32.0 pg Mean Corpuscular Hemoglobin Concent 34.1 32.0-36.0 g/dL Red Cell Distribution Width 15.0 H 11.8-14.3 % Platelet Count 263 140-450 10^3/uL Mean Platelet Volume 7.0 6.9-10.8 fL Neutrophils (%) (Auto) 66.3 37.0-80.0 % Lymphocytes (%) (Auto) 20.2 10.0-50.0 % Monocytes (%) (Auto) 9.3 0.0-12.0 % Eosinophils (%) (Auto) 3.6 0.0-7.0 % Basophils (%) (Auto) 0.6 0.0-2.0 % Neutrophils # (Auto) 4.3 1.6-8.6 10 ^3/uL Lymphocytes # (Auto) 1.3 0.4-5.4 10 ^3/uL Monocytes # (Auto) 0.6 0-1.3 10 ^3/uL Eosinophils # (Auto) 0.2 0-0.8 10 ^3/uL Basophils # (Auto) 0 0-0.2 10 ^3/uL Nucleated Red Blood Cells 0.1 % Prothrombin Time 10.3 9.3-11.8 sec Prothrombin Time INR 0.97 0.9-1.15 Activated Partial Thromboplast Time 27.9 24.5-34.5 SEC Sodium Level 140 136-145 mmol/L Potassium Level 4.1 3.5-5.1 mmol/L Chloride Level 105 98-107 mmol/L Carbon Dioxide Level 26 20-31 mmol/L Anion Gap 9 5-15 Blood Urea Nitrogen 23 9-23 mg/dL Creatinine 1.06 0.700-1.30 mg/dL Glomerular Filtration Rate Calc 80 >90 mL/min BUN/Creatinine Ratio 21.7 H 10.0-20.0 Serum Glucose 99 74-106 mg/dL Calcium Level 10.7 H 8.7-10.4 mg/dL Total Bilirubin 0.4 0.2-1.0 mg/dL Aspartate Amino Transferase (AST) 24 13-40 U/L Alanine Aminotransferase (ALT) 67 H 7-40 U/L Alkaline Phosphatase 114 46-116 U/L Total Protein 7.6 5.7-8.2 g/dL Albumin 4.7 3.2-4.8 g/dL [place] [address] Ph: [phone] DIAGNOSTIC IMAGING Diagnostic Imaging Report : [id number] Signed PATIENT: JULITO VELAZQUEZ ACCT: [id number] UNIT: [id number] : 1965 LOC: ER ROOM / BED: / AGE / SEX: 58 / M ADM STATUS: REG ER SERVICE 1040 ORDERING PHYSICIAN: PRISCA SALINAS DO PROCEDURE(s): ABPL - CT AB PEL WO CON-NO ORAL OR IV REASON: HEMATURIA ORDER NUMBER(s): [id number], ACCESSION NUMBER(s): [id number] Exam: CT CT AB PEL WO CON-NO ORAL OR IV History: HEMATURIA Comparison Study: CT CT AB PEL WO CON-NO ORAL OR IV on DOS: 07/29/22 ; CT abdomen/ pelvis 03/25/2022 Technique: Multidetector spiral CT of the abdomen was performed from lung bases to pubic symphysis. Imaging was performed without IV contrast. Axial, coronal and sagittal multiplanar reformats were obtained from the axial data set by the technologist. Radiation Dose : 1. Abdomen/Pelvis: CTDIvol 8.6 mGy, DLP 484.05 mGy*cm. Findings: Evaluation of solid organs is limited due to lack of intravenous contrast use. Lung Bases: Mild areas of scarring /atelectasis. Liver: Diffusely decreased hepatic parenchymal attenuation. Minimal focal fatty sparing along the gallbladder fossa. Gallbladder and Biliary Tree: Unremarkable Spleen: Unremarkable Pancreas: Fatty atrophy of the pancreas. Adrenal Glands: Unremarkable Kidneys: There is a 2.9 mm cyst in the left kidney. There is a 1.2 cm cyst in the right kidney. No evidence of hydronephrosis or renal calculi. Bladder: There is a 3.1 x 1.6 cm structure projecting from the right posterior wall of the urinary bladder, likely a decompressed bladder diverticulum when compared with prior exam. There is a smaller bladder diverticulum directly adjacent to that. Bowel: The stomach is grossly normal in appearance. Small bowel and colon are normal in caliber and distribution. Normal appendix is visualized in the right lower quadrant without findings of appendicitis. Ascites: Absent Lymphadenopathy: No mesenteric, retroperitoneal or periportal lymphadenopathy. Abdominal Wall and Mesentery: Tiny fat containing umbilical hernia.. Vasculature: The visualized abdominal aorta is normal in size and caliber. Evaluation of abdominal and pelvic vessels is limited due to lack of intravenous contrast. Pelvic Organs: Prostate is enlarged. Focus of hypoattenuation in the right posterolateral prostate is unchanged. Musculoskeletal: No evidence of acute osseous abnormalities. No evidence of destructive osseous lesions. Minimal retrolisthesis L5/S1. Minimal anterolisthesis L4/L5. Moderate multilevel degenerative disc changes throughout the visualized spine. Prominent facet arthropathy in the lumbar spine. There is fusion of the T11-T12 vertebral bodies. Degenerative changes of the sacroiliac joints. IMPRESSION: Evaluation is limited secondary to lack of intravenous contrast. 1. No evidence of acute abdominopelvic abnormalities. 2. Urinary bladder diverticula are decompressed but otherwise similar from prior. 3. Bilateral renal cysts. No hydronephrosis or renal calculi. 4. Prostate is mildly enlarged and similar compared to prior. 5. Hepatic steatosis. Radiation optimization: All CT scans at this facility use at least one of these dose optimization techniques: automated exposure control mA and/or kV adjustment per patient size (includes targeted exams where dose is matched to clinical indication) or iterative reconstruction. ATED BY: RAINER VINSON DO DICTATED DATE/TIME: 02/24/24 113 SIGNED BY: RAINER VINSON DO SIGNED DATE/TIME: 02/24/24 113 CC: Patient Education/Counseling: Diagnosis, Treatment Family Education/Counseling: No Family Present Additional Information Patient presented with the above HPI.--urinary complaints ---workup was initiated. patient was found with the above mentioned diagnosis. the following medications were ordered: none the following tests were ordered: CT abdomen and pelvis without contrast, PT, PT/PTT, CBC, CMP Patient ED course and VS have been stabilized. Patient has been reassessed in [facility] ED and remained in a stable condition. Patient has been observed in the ED adequate length of time to insure improvement/stability. Escalation of care considered: Consideration of escalation to observation or admission. patient was ADMITTED to the medicine team for further evaluation and treatment of their presentation. patient was DISCHARGED after further evaluation and treatment of their presentation. All the reports of any imaging studies that were ordered by myself were reviewed by myself. Departure 1 Departure Time of Disposition: 12:29 Impression: Primary Impression: Hematuria Additional Impression: UTI (urinary tract infection) Disposition: HOME / SELF CARE / HOMELESS Condition: Stable Additional Instructions: Additional discharge instructions: You MUST follow-up with your primary care/family doctor in 1 to 2 days. If you are unable to see your primary care/family doctor, please return to our emergency room for re-assessment and re-evaluation in 1 to 2 days. Return to the emergency room here in our facility or to the nearest ER [facility] if your symptoms change or worsen. CONSULTATIONS: you MUST Follow-up for consultation as soon as possible with: -urology in 1-2 days. Please call for appointment You MUST call the consultants office yourself to make an appointment. You may need to arrange that through your insurance and/or your primary/family doctor. If you are unable to see the erp consultant in 1 to 2 days, you must return to our emergency room (or any other ER of your choice) for re-assessment and re- evaluation. Adequate fluid hydration. Below is a copy of your radiological report for follow up: [address] [address] Ph: [phone] DIAGNOSTIC IMAGING Diagnostic Imaging Report : [id number] Signed PATIENT: JULITO VELAZQUEZ ACCT: [id number] UNIT: [id number] : 1965 LOC: ER ROOM / BED: / AGE / SEX: 58 / M ADM STATUS: REG ER SERVICE 1040 ORDERING PHYSICIAN: PRISCA SALINAS DO PROCEDURE(s): ABPL - CT AB PEL WO CON-NO ORAL OR IV REASON: HEMATURIA ORDER NUMBER(s): [id number], ACCESSION NUMBER(s): [id number] Exam: CT CT AB PEL WO CON-NO ORAL OR IV History: HEMATURIA Comparison Study: CT CT AB PEL WO CON-NO ORAL OR IV on DOS: 07/29/22 ; CT abdomen/ pelvis 03/25/2022 Technique: Multidetector spiral CT of the abdomen was performed from lung bases to pubic symphysis. Imaging was performed without IV contrast. Axial, coronal and sagittal multiplanar reformats were obtained from the axial data set by the technologist. Radiation Dose : 1. Abdomen/Pelvis: CTDIvol 8.6 mGy, DLP 484.05 mGy*cm. Findings: Evaluation of solid organs is limited due to lack of intravenous contrast use. Lung Bases: Mild areas of scarring /atelectasis. Liver: Diffusely decreased hepatic parenchymal attenuation. Minimal focal fatty sparing along the gallbladder fossa. Gallbladder and Biliary Tree: Unremarkable Spleen: Unremarkable Pancreas: Fatty atrophy of the pancreas. Adrenal Glands: Unremarkable Kidneys: There is a 2.9 mm cyst in the left kidney. There is a 1.2 cm cyst in the right kidney. No evidence of hydronephrosis or renal calculi. Bladder: There is a 3.1 x 1.6 cm structure projecting from the right posterior wall of the urinary bladder, likely a decompressed bladder diverticulum when compared with prior exam. There is a smaller bladder diverticulum directly adjacent to that. Bowel: The stomach is grossly normal in appearance. Small bowel and colon are normal in caliber and distribution. Normal appendix is visualized in the right lower quadrant without findings of appendicitis. Ascites: Absent Lymphadenopathy: No mesenteric, retroperitoneal or periportal lymphadenopathy. Abdominal Wall and Mesentery: Tiny fat containing umbilical hernia.. Vasculature: The visualized abdominal aorta is normal in size and caliber. Evaluation of abdominal and pelvic vessels is limited due to lack of intravenous contrast. Pelvic Organs: Prostate is enlarged. Focus of hypoattenuation in the right posterolateral prostate is unchanged. Musculoskeletal: No evidence of acute osseous abnormalities. No evidence of destructive osseous lesions. Minimal retrolisthesis L5/S1. Minimal anterolisthesis L4/L5. Moderate multilevel degenerative disc changes throughout the visualized spine. Prominent facet arthropathy in the lumbar spine. There is fusion of the T11-T12 vertebral bodies. Degenerative changes of the sacroiliac joints. IMPRESSION: Evaluation is limited secondary to lack of intravenous contrast. 1. No evidence of acute abdominopelvic abnormalities. 2. Urinary bladder diverticula are decompressed but otherwise similar from prior. 3. Bilateral renal cysts. No hydronephrosis or renal calculi. 4. Prostate is mildly enlarged and similar compared to prior. 5. Hepatic steatosis. Radiation optimization: All CT scans at this facility use at least one of these dose optimization techniques: automated exposure control mA and/or kV adjustment per patient size (includes targeted exams where dose is matched to clinical indication) or iterative reconstruction. ATED BY: RAINER VINSON DO DICTATED DATE/TIME: 02/24/24 1131 SIGNED BY: RAINER VINSON DO SIGNED DATE/TIME: 02/24/24 1131 CC: e-Prescriptions Cephalexin Monohydrate (Cephalexin) 500 Mg Cap 500 MG PO Q8HR for 7 Days, #21 CAP Prov: PRISCA SALINAS DO 02/24/24 Discharged With: Self I personally scribed for PRISCA SALINAS DO ([email or web address]) on 02/24/24 at 10:43. Electronically submitted by Balwinder Fox ([email or web address]). I personally scribed for PRISCA SALINAS DO ([facility]) on 02/24/24 at 11:22. Electronically submitted by Balwinder Fox ([facility] I personally scribed for PRISCA SALINAS DO ([facility]) on 02/24/24 at 12:42. Electronically submitted by Balwinder Fox ([facility]). PRISCA SALINAS DO Feb 24, 2024 10:43
[2024-02-24 10:51] LABS: Urine Bacteria None Seen /hpf (None Seen)
[2024-02-24 11:05] LABS: Basophils # (auto) 0 10 ^3/uL (0-0.2); Basophils % (auto) 0.6 % (0.0-2.0); Eosinophils # (auto) 0.2 10 ^3/uL (0-0.8); Eosinophils % (auto) 3.6 % (0.0-7.0); Hematocrit 43.4 % (41.0-53.0); Hemoglobin 14.8 g/dL (13.5-17.5); Lymphocytes # (auto) 1.3 10 ^3/uL (0.4-5.4); Lymphocytes % (auto) 20.2 % (10.0-50.0); Mean Corpuscular Hemoglobin 33.2 pg (28.0-32.0); Mean Corpuscular Hgb Conc. 34.1 g/dL (32.0-36.0); Mean Corpuscular Volume 97.2 fL (80.0-100.0); Monocytes # (auto) 0.6 10 ^3/uL (0-1.3); Monocytes % (auto) 9.3 % (0.0-12.0); Neutrophils # (auto) 4.3 10 ^3/uL (1.6-8.6); Neutrophils % (auto) 66.3 % (37.0-80.0); Nucleated Red Blood Cells % 0.1 %; Platelet Count (auto) 263 10^3/uL (140-450); Red Blood Cells 4.46 10^6/uL (4.5-5.90); White Blood Cell 6.5 10^3/uL (4.4-10.8)
[2024-02-24 11:06] LABS: Urine Blood 1+ /uL (Negative); Urine Clarity Clear (Clear); Urine Color Yellow (Yellow); Urine Mucus FEW (None Seen); Urine Protein, UAD TRACE (Negative); Urine Specific Gravity 1.025 (1.001-1.035); Urine Urobilinogen Normal (Negative); Urine WBC 27 /hpf (0 - 3)
[2024-02-24 11:19] LABS: INR 0.97 (0.9-1.15); Partial Thromboplastin Time 27.9 SEC (24.5-34.5); Prothrombin Time 10.3 sec (9.3-11.8)
[2024-02-24 11:26] LABS: Albumin 4.7 g/dL (3.2-4.8); Alkaline Phosphatase 114 U/L (46-116); Anion Gap 9 (5-15); Aspartate Aminotransferase 24 U/L (13-40); Carbon Dioxide 26 mmol/L (20-31); Chloride 105 mmol/L (98-107); Glucose 99 mg/dL (74-106); Potassium 4.1 mmol/L (3.5-5.1); Sodium 140 mmol/L (136-145)
[2024-02-24 11:27] LABS: Bilirubin, Total 0.4 mg/dL (0.2-1.0); Total Protein 7.6 g/dL (5.7-8.2)
[2024-02-24 11:29] LABS: Alanine Aminotransferase 67 U/L (7-40); Calcium 10.7 mg/dL (8.7-10.4)
--- NOTE | 2024-02-24 11:33 | DVH ---
Exam: CT CT AB PEL WO CON-NO ORAL OR IV History: HEMATURIA Comparison Study: CT CT AB PEL WO CON-NO ORAL OR IV on DOS: 07/29/22 ; CT abdomen/ pelvis 03/25/2022 Technique: Multidetector spiral CT of the abdomen was performed from lung bases to pubic symphysis. Imaging was performed without IV contrast. Axial, coronal and sagittal multiplanar reformats were ob tained from the axial data set by the technologist. Radiation Dose : 1. Abdomen/Pelvis: CTDIvol 8.6 mGy, DLP 484.05 mGy*cm. Findings: Evaluation of solid organs is limited due to lack of intravenous contrast use. Lung Bases: Mild areas of scarring /atelectasis. Liver: Diffusely decreased hepatic parenchymal attenuation. Minimal focal fatty sparing along the ga llbladder fossa. Gallbladder and Biliary Tree: Unremarkable Spleen: Unremarkable Pancreas: Fatty atrophy of the pancreas. Adrenal Glands: Unremarkable Kidneys: There is a 2.9 mm cyst in the left kidney. There is a 1.2 cm cyst in the right kidney. No ev idence of hydronephrosis or renal calculi. Bladder: There is a 3.1 x 1.6 cm structure projecting from the right posterior wall of the urinary bl adder, likely a decompressed bladder diverticulum when compared with prior exam. There is a smaller b ladder diverticulum directly adjacent to that. Bowel: The stomach is grossly normal in appearance. Small bowel and colon are normal in caliber and d istribution. Normal appendix is visualized in the right lower quadrant without findings of appendici tis. Ascites: Absent Lymphadenopathy: No mesenteric, retroperitoneal or periportal lymphadenopathy. Abdominal Wall and Mesentery: Tiny fat containing umbilical hernia.. Vasculature: The visualized abdominal aorta is normal in size and caliber. Evaluation of abdominal a nd pelvic vessels is limited due to lack of intravenous contrast. Pelvic Organs: Prostate is enlarged. Focus of hypoattenuation in the right posterolateral prostate is unchanged. Musculoskeletal: No evidence of acute osseous abnormalities. No evidence of destructive osseous lesio ns. Minimal retrolisthesis L5/S1. Minimal anterolisthesis L4/L5. Moderate multilevel degenerative d isc changes throughout the visualized spine. Prominent facet arthropathy in the lumbar spine. There is fusion of the T11-T12 vertebral bodies. Degenerative changes of the sacroiliac joints. IMPRESSION: Evaluation is limited secondary to lack of intravenous contrast. 1. No evidence of acute abdominopelvic abnormalities. 2. Urinary bladder diverticula are decompressed but otherwise similar from prior. 3. Bilateral renal cysts. No hydronephrosis or renal calculi. 4. Prostate is mildly enlarged and similar compared to prior. 5. Hepatic steatosis. Radiation optimization: All CT scans at this facility use at least one of these dose optimization monse hniques: automated exposure control mA and/or kV adjustment per patient size (includes targeted exam s where dose is matched to clinical indication) or iterative reconstruction.
[2024-02-24 11:38] LABS: BUN/Creatinine Ratio 21.7 (10.0-20.0); Blood Urea Nitrogen 23 mg/dL (9-23)
[2024-02-24] MEDS ORDERED: CEPH500C PO (12:30)
[2024-02-24 12:41] VITALS: BP 151/85; PULSE 99; RESP 18; TEMP 98.1; O2SAT 100
== END 2024-02-24 12:42 | disposition home or self-care (01) ==
LOC: ER 10:01
DX: N39.0 Urinary tract infection, site not specified (principal); R31.9 Hematuria, unspecified; I12.9 Hypertensive chronic kidney disease with stage 1 through stage 4 chronic kidney disease, or unspecified chronic kidney disease; N18.9 Chronic kidney disease, unspecified; K21.9 Gastro-esophageal reflux disease without esophagitis; M19.90 Unspecified osteoarthritis, unspecified site; F17.210 Nicotine dependence, cigarettes, uncomplicated; F15.90 Other stimulant use, unspecified, uncomplicated; Z98.890 Other specified postprocedural states; Z88.8 Allergy status to other drugs, medicaments and biological substances; Z79.1 Long term (current) use of non-steroidal anti-inflammatories (NSAID); Z79.52 Long term (current) use of systemic steroids; Z79.899 Other long term (current) drug therapy
CPT/HCPCS: 36415; 74176; 80053; 81001; 85025; 85610; 85730

== ENCOUNTER 2024-02-27 10:14 | Emergency (ER) | payer MEDICAID ==
[~2024-02-27] VITALS: Ht 180.3 cm; Wt 79.6 kg
[~2024-02-27 10:14] MED LIST changes: +CEPH500C PO
--- NOTE | 2024-02-27 11:02 | DVH ---
CLINICAL INDICATION: DOG BITE TECHNIQUE: XY L HAND 3V XRAY Comparison: XY R KNEE 3V XRAY on DOS: 07/22/22 FINDINGS/IMPRESSION: There is no evidence of acute fracture or dislocation. Soft tissue swelling about the 3rd digit. Chronic deformity involving the base of the 3rd middle phal anx. No acute fracture. The alignment is anatomical. There is no radiopaque foreign body.
--- NOTE | 2024-02-27 11:02 | DVH ---
CLINICAL INDICATION: DOG BITE TECHNIQUE: XY R HAND 3 VIEW XRAY Comparison: XY R KNEE 3V XRAY on DOS: 07/22/22 FINDINGS/IMPRESSION: There is no evidence of acute fracture or dislocation. Soft tissue swelling overlying the 4th digit. No acute fracture. The alignment is anatomical. There is no radiopaque foreign body.
[2024-02-27 11:40] VITALS: RESP 17
[2024-02-27 11:50] VITALS: BP 171/101; PULSE 86; RESP 16; TEMP 97.9; O2SAT 97
[2024-02-27] MEDS: HYDROcodone-ACET 5/325MG TAB PO ONE (13:15)
[2024-02-27 13:44] LABS: Basophils # (auto) 0 10 ^3/uL (0-0.2); Basophils % (auto) 0.5 % (0.0-2.0); Eosinophils # (auto) 0.2 10 ^3/uL (0-0.8); Eosinophils % (auto) 3.5 % (0.0-7.0); Hematocrit 46.8 % (41.0-53.0); Hemoglobin 15.7 g/dL (13.5-17.5); Lymphocytes # (auto) 1.3 10 ^3/uL (0.4-5.4); Lymphocytes % (auto) 19.2 % (10.0-50.0); Mean Corpuscular Hemoglobin 32.7 pg (28.0-32.0); Mean Corpuscular Hgb Conc. 33.5 g/dL (32.0-36.0); Mean Corpuscular Volume 97.6 fL (80.0-100.0); Monocytes # (auto) 0.5 10 ^3/uL (0-1.3); Neutrophils # (auto) 4.7 10 ^3/uL (1.6-8.6); Neutrophils % (auto) 68.8 % (37.0-80.0); Platelet Count (auto) 291 10^3/uL (140-450); Red Cell Distribution Width 15.1 % (11.8-14.3); White Blood Cell 6.8 10^3/uL (4.4-10.8)
[2024-02-27 14:03] LABS: Albumin 4.6 g/dL (3.2-4.8); Alkaline Phosphatase 103 U/L (46-116); Anion Gap 8 (5-15); Aspartate Aminotransferase 29 U/L (13-40); BUN/Creatinine Ratio 19.3 (10.0-20.0); Bilirubin, Total 0.4 mg/dL (0.2-1.0); Blood Urea Nitrogen 16 mg/dL (9-23); Calcium 10.1 mg/dL (8.7-10.4); Carbon Dioxide 22 mmol/L (20-31); Chloride 107 mmol/L (98-107); Glucose 102 mg/dL (74-106); Potassium 4.7 mmol/L (3.5-5.1); Sodium 137 mmol/L (136-145); Total Protein 7.4 g/dL (5.7-8.2)
--- NOTE | 2024-02-27 14:11 | DVH ---
EXAM: CT RT UPPER EXTREMITY WITH CONT INDICATION: Please do with contrast, rule out abscess EXAM DATE: 02/27/2024 01:33 PM COMPARISON: RUECT on DOS: 09/14/21 TECHNIQUE: Multiple axial CT images of the right hand and wrist were obtained using bone algorithm. A xial and coronal reformatting was done. Bone and soft tissue windows were reviewed. Radiation Dose Information: CT Dose: CTDI volume is 7.75 mGy. Dose-length product is 463.14 mGy*cm Findings: There is no evidence of an acute fracture, dislocation, blastic, or lytic lesions. No radiopaque foreign bodies. Mild dorsal soft tissue edema. No focal fluid collections or subcutaneous emphysema. Impression: 1. No acute osseous abnormality. 2. Mild dorsal soft tissue edema. No focal fluid collections or subcutaneous emphysema.
--- NOTE | 2024-02-27 14:15 | DVH ---
Procedure: CT LT UPPER EXTREMITY W GENESIS 02/27/2024 01:33 PM Indication: Dog bite, rule out abscess Comparison Study: Radiograph dated 02/27/2024. Technique: Axial images of the left hand were obtained and reformatted in coronal and sagittal planes . All CT scans at this medical facility are performed using dose modulation techniques as appropriate t o a performed exam including the following: Automated exposure control was utilized; adjustment of th e MA and/or KV according to patient size; and use of iterative reconstruction technique. CT Dose: CTDI volume is 7.8 mGy. Dose-length product is 463 mGy*cm FINDINGS: Bones: No acute fracture or dislocation. There is deformity of the 3rd proximal phalangeal head and t he adjacent base of the middle phalanx with associated joint space narrowing, slight dorsal subluxati on, marginal osteophytosis and subchondral sclerosis compatible with secondary osteoarthritis. Sever al subcentimeter osseous fragments are seen adjacent to the 3rd PIP joint that could be old fracture fragments, intra-articular loose bodies or heterotopic ossification. Mild 1st carpometacarpal joint o steoarthritis mild degenerative subluxation noted. Soft tissues: Diffuse soft tissue swelling overlying the 3rd PIP joint. Moderate fluid distention of the 3rd flexor tendon sheath and subcentimeter areas of calcification surrounding a moderately thicke piotr 3rd flexor tendon. IMPRESSION: 1. No acute osseous abnormality. 2. 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 Several subcentim eter intra-articular loose bodies noted. 3. Third flexor tenosynovitis throughout the finger and hand that could be inflammatory or infectious in etiology. Subcentimeter densities in the periphery of the 3rd flexor tendon at the level of the P IP joint that may represent calcifications or suture material. Recommend further evaluation with MRI without and with IV contrast if clinically warranted. Ultrasound May also be helpful. and proximal p halanx
[2024-02-27 14:29] LABS: Alanine Aminotransferase 66 U/L (7-40); CRP High Sensitivity 1.22 mg/dL (<1.0)
[2024-02-27] MEDS: PIPERACILLIN-TAZOB 3.375GM 100 ML IV ONE (14:45)
[2024-02-27] MEDS ORDERED: VANCOMYCIN PER PHARMACY 0 MG IV SCH (14:45)
[2024-02-27] MEDS: VANCOMYCIN 1GM/250ML KIT 250 ML IV SCH (15:00)
--- NOTE | 2024-02-27 15:12 | ED.PDOC ---
Back pain HPI HPI Comments 58-year-old male with past medical history pertinent for CKF, HTN, presents to ED for dog bite x2 days ago. Patient reports that he was bit by his own dog. Dog is up-to-date with all vaccinations. Patient does not remember his last tetanus. Patient reports pain in his right hand due to a laceration to the base of his dorsal right finger, as well as pain to the left 3rd finger. He denies any fever, chills, nausea, vomiting, numbness, tingling. Currently, he rates his pain as 10/10 in severity. No alleviating or aggravating factors. Chief Complaint: Animal Bite Time Seen by MD: 10:39 Primary Care Provider: NONE Reviewed Notes: Nurses Notes, Medications, Allergies Allergies: Coded Allergies: Prednisone (Verified Allergy, Unknown, 12/20/22) Home Meds Active Scripts Cephalexin Monohydrate (Cephalexin) 500 Mg Cap, 500 MG PO Q8HR for 7 Days, #21 CAP Prov:PRISCA SALINAS DO 02/24/24 Hydrocodone-Acetaminophen (Hydrocodone Bitartrate/AC 5-325 mg) 1 Tab Tab, 1 TAB PO Q8HPRN PRN for 5 Days, #8 TAB Prov:JASS KNIGHT MUSEUM OR ZOO DIRECTOR 05/07/23 Sulfamethoxazole W/Trimethopri (Bactrim Ds Tablet) 1 Tab Tb, 1 TAB PO BID for 7 Days, #14 TAB Prov:JASS KNIGHT [employer] OR ZOO DIRECTOR 05/07/23 Ciprofloxacin Hcl (Cipro) 500 Mg Tab, 1 TAB PO BID for 7 Days, #14 TAB Prov:JASS KNIGHTP 24 Hydrocodone-Acetaminophen (Hydrocodone Bitartrate/AC 10-325 mg) 1 Tab Tab, 1 TAB PO Q8HP PRN, #10 TAB Prov:MARIBETH DIOP PAC 12/20/22 Ibuprofen Micronized (Ibuprofen) 800 Mg Tab, 800 MG PO Q8HP PRN, #30 TAB Prov:MARIBETH DIOP PAC 12/20/22 Lidocaine HCl (Mouth-Throat) (Lidocaine HCl Viscous) 2 % Yaima, 5 ML MT TID, #100 ML Prov:BONIFACIO GALLEGOS 12/12/22 Tramadol Hcl (Tramadol Hcl) 50 Mg Tab, 50 MG PO TID, #20 TAB Prov:BONIFACIO GALLEGOS 12/12/22 Cephalexin (KEFLEX CAPSULE) 250 Mg Cp, 1 CAP PO QID for 7 Days, #28 CAP Prov:PRISCA SALINAS DO 09/30/22 Ciprofloxacin Hcl (Cipro) 500 Mg Tab, 1 TAB PO BID, #20 TAB Prov:BONIFACIO GALLEGOS 07/29/22 Meloxicam (Mobic) 7.5 Mg Tab, 7.5 MG PO BID, #30 TAB Prov:BONIFACIO GALLEGOS 07/22/22 Acetaminophen (Tylenol 8 Hour Arthritis) 650 Mg Tab, 650 MG PO TID, #30 TAB Prov:BONIFACIO GALLEGOS 03/24/22 Hydrocodone-Acetaminophen (Hydrocodone Bitartrate/AC 5-325 mg) 1 Tab Tab, 1 TAB PO Q6HPRN PRN, #15 TAB Prov:MARIBETH DIOP 03/23/22 Cyclobenzaprine Hcl (Cyclobenzaprine Hcl) 10 Mg Tab, 10 MG PO TIDP PRN, #20 TAB Prov:MARIBETH DIOP 03/23/22 Ibuprofen Micronized (Ibuprofen) 800 Mg Tab, 800 MG PO TIDP PRN, #30 TAB Prov:MARIBETH DIOP [facility] 03/23/22 Promethazine-Dm (Promethazine Dm 6.25-15 mg/5Ml) 1 Yaima Yaima, 5 ML PO TID, #150 ML Prov:BONIFACIO GALLEGOS 02/17/22 Prednisone (Prednisone) 20 Mg Tab, 60 MG PO DAILY, #15 MG Prov:BONIFACIO GALLEGOS 02/17/22 Azithromycin (ZITHROMAX TABLET) 250 Mg Tb, 250 MG PO DAILY, #6 TAB Prov:BONIFACIO GALLEGOS 02/17/22 Benzonatate (Tessalon Perles) 100 Mg Cap, 1 CAP PO TID for 7 Days, #21 CAP Prov:MARIBETH DIOP 01/26/22 Dextromethorphan-Guaifenesin (Mucinex Dm Maximum Streng) 1 Tab Tab, 1 TAB PO BID for 5 Days, #10 TAB Prov:MARIBETH DIOP 01/26/22 Chlorhexidine Gluconate (Mouth (CHLORHEXIDINE ORAL RINSE) 473 Ml So, 15 ML MT Q12HR, #200 ML Prov:JOSE F POST NP 01/19/22 Baclofen (Baclofen) 10 Mg Tab, 10 MG PO TID, #30 TAB Prov:SEJALJOSE F C ROOM SERVICE FOOD SERVICE ATTENDANT 01/19/22 Hydrocodone-Acetaminophen (Hydrocodone Bitartrate/AC 5-325 mg) 1 Tab Tab, 1 TAB PO TID for 7 Days, #21 TAB Prov:MARIBETH DIOP PAC 01/11/22 Tramadol Hcl (Tramadol Hcl) 50 Mg Tab, 50 MG PO BID for 10 Days, #20 TAB Prov:MARIBETH DIOP PAC 01/11/22 Cyclobenzaprine HCl (Cyclobenzaprine Hydrochlo) 10 Mg Tab, 10 MG PO BID for 10 Days, #20 TAB Prov:MARIBETH DIOP PAC 01/11/22 Cephalexin ( Keflex 500) 500 Mg Cap, 1 CAP PO QID for 10 Days, #40 CAP Prov:MARIBETH DIOP PAC 01/11/22 Tramadol Hcl (Ultram) 50 Mg Tab, 1 TAB PO BID, #20 TAB Prov:BONIFACIO GALLEGOS 01/06/22 Hydrocodone-Acetaminophen (Hydrocodone Bitartrate/AC 5-325 mg) 1 Tab Tab, 1 TAB PO BID, #10 TAB Prov:BONIFACIO GALLEGOS 12/23/21 Ciprofloxacin Hcl (Cipro) 500 Mg Tab, 1 TAB PO BID, #14 TAB Prov:BONIFACIO GALLEGOS 12/23/21 Prednisone (Prednisone) 20 Mg Tab, 40 MG PO DAILY, #20 MG Prov:BONIFACIO GALLEGOS 12/15/21 Meloxicam (Mobic) 7.5 Mg Tab, 7.5 MG PO BID, #30 TAB Prov:BONIFACIO GALLEGOS 12/15/21 Tramadol Hcl (Ultram) 50 Mg Tab, 1 TAB PO BID, #20 TAB Prov:BONIFACIO GALLEGOS 11/17/21 Tramadol Hcl (Ultram) 50 Mg Tab, 50 MG PO BID, #20 TAB Prov:BONIFACIO GALLEGOS 10/27/21 Pantoprazole Sodium Sesquihydr (Protonix) 40 Mg Tab, 40 MG PO DAILY, #20 TAB Prov:BONIFACIO GALLEGOS 09/30/21 Tramadol Hcl (Ultram) 50 Mg Tab, 50 MG PO BID, #20 TAB Prov:BONIFACIO GALLEGOS 09/30/21 Ibuprofen (Ibuprofen) 800 Mg Tab, 800 MG PO TID PRN, #30 TAB Prov:BONIFACIO GALLEGOS 09/08/21 Cyclobenzaprine Hcl (Cyclobenzaprine Hcl) 5 Mg Tab, 10 MG PO BID, #20 TAB Prov:BONIFACIO GALLEGOS 09/03/21 Acetaminophen (Tylenol 8 Hour Arthritis) 650 Mg Tab, 650 MG PO TID, #30 TAB Prov:BONIFACIO GALLEGOS 08/25/21 Cyclobenzaprine Hcl (Cyclobenzaprine Hcl) 10 Mg Tab, 10 MG PO QHSP PRN, #20 TAB Prov:BONIFACIO GALLEGOS 08/14/21 Ibuprofen (Ibuprofen) 800 Mg Tab, 800 MG PO TID PRN, #30 TAB Prov:BONIFACIO GALLEGOS 08/14/21 Naproxen (NAPROSYN TABLET) 500 Mg Tb, 1 TAB PO BID PRN, #30 TAB 0 Refills Prov:KARLOS MAHAJAN 06/09/21 Cyclobenzaprine Hcl (Cyclobenzaprine Hcl) 5 Mg Tab, 1 TAB PO QPM PRN, #14 TAB 0 Refills Prov:KARLOS MAHAJAN 06/09/21 Reported Medications Tamsulosin Hcl (Tamsulosin Hcl) 0.4 Mg Cap, 2 CAP PO DAILY 09/28/22 Finasteride (Finasteride) 5 Mg Tab, 1 TAB PO DAILY 09/28/22 Mode of Arrival: Ambulatory Past Medical History PAST MEDICAL HISTORY: Arthritis, CKF, GERD, HTN, UTI'S Surgical History: Hernia Repair Family History Family History: Reviewed,noncontributory to illness, No family hx of Cancer, No family hx of DM, No family hx of Heart araceli Social History Smoker: Cigarettes, Less Than 1 Pack/Day Alcohol: Occasionally Drugs: Marijuana, Methamphetamine Lives In: Home Constitutional: denies: chills, diaphoresis, fatigue, fever, malaise, sweats, weakness, others EENTM: denies: blurred vision, double vision, ear bleeding, ear discharge, ear drainage, ear pain, ear ringing, eye pain, eye redness, hearing loss, mouth pain, mouth swelling, nasal discharge, nose bleeding, nose congestion, nose pain, photophobia, tearing, throat pain, throat swelling, voice changes, others Respiratory: denies: cough, hemoptysis, orthopnea, SOB at rest, shortness of breath, SOB with excertion, stridor, wheezing, others Cardiovascular: denies: chest pain, dizzy spells, diaphoresis, Dyspnea on exertion, edema, irregular heart beat, left arm pain, lightheadedness, palpitations, PND, syncope, others Gastrointestinal: denies: abdomen distended, abdominal pain, blood streaked bowels, constipated, diarrhea, dysphagia, difficulty swallowing, hematemesis, melena, nausea, poor appetite, poor fluid intake, rectal bleeding, rectal pain, vomiting, others Genitourinary: denies: burning, dysuria, flank pain, frequency, hematuria, incontinence, penile discharge, penile sore, pain, testicle pain, testicle swelling, urgency, others Neurological: denies: dizziness, fainting, headache, left sided numbness, left sided weakness, numbness, paresthesia, pre-existing deficit, right sided numbness, right sided weakness, seizure, speech problems, tingling, tremors, weakness, others Musculoskeletal: reports: joint pain, joint swelling; denies: back pain, gout, muscle pain, muscle stiffness, neck pain, others Integumetry: denies: bruises, change in color, change in hair/nails, dryness, laceration, lesions, lumps, rash, wounds, others Allergic/Immunocompromised: denies: Difficulty Healing, Frequent Infections, Hives, Itching, others Hematologic/Lymphatic: denies: anemia, blood clots, easy bleeding, easy bruising, swollen glands, others Endocrine: denies: excessive hunger, excessive sweating, excessive thirst, excessive urination, flushing, intolerance to cold, intolerance to heat, unexplained weight gain, unexplained weight loss, others Psychiatric: denies: anxiety, bipolar disorder, depression, hopeless, panic disorder, schizophrenia, sleepless, suicidal, others All Other Systems: Reviewed and Negative Physical Exam General Appearance: No Apparent Distress, Normal HEENT: Normal ENT Inspection, Pharynx Normal, TMs Normal Neck: Full Range of Motion, Non-Tender, Normal, Normal Inspection Respiratory: Chest Non-Tender, Lungs Clear, No Accessory Muscle Use, No Respiratory Distress, Normal Breath Sounds Cardiovascular: No Edema, No JVD, No Murmur, No Gallop, Normal Peripheral Pulses, Regular Rate/Rhythm Breast Exam: Deferred Gastrointestinal: No Organomegaly, Non Tender, No Pulsatile Mass, Normal Bowel Sounds, Soft Genitalia: Deferred Pelvic: Deferred Rectal: Deferred Extremities: No calf tenderness, Normal capillary refill, Normal inspection, Normal range of motion, Non-tender, No pedal edema Musculoskeletal : Extremity Location: Finger 3 (The left 3rd finger is swollen at the proximal phalanx and there is moderate tenderness to palpation. Tenderness to palpation to the entire finger. Patient unable to flex the 3rd digit. Normal capillary refill. Wound noted to the distal 3rd digit.), Hand (There is a laceration to the base of the right 3rd digit on the dorsal aspect, with moderate swelling to the dorsal aspect of the hand with erythema. No significant tenderness to palpation.) Apperance: Normal Neurologic: Alert, print cutter II-XII nml as Tested, No Motor Deficits, Normal Affect, Normal Mood, No Sensory Deficits Cerebellar Function: Normal Reflexes: Normal Skin: Dry, Normal Color, Warm Lymphatic: No Adenopathy Was a procedure done? Was a procedure done?: No Back Pain Differential Dx Differential Diagnosis: Fracture, Musculoskeletal Pain, Other (Cellulitis, abs cess, flexor tenosynovitis) X-Ray, Labs, Meds, VS Vital Signs Date Time Temp Pulse Resp B/P (MAP) Pulse Ox O2 Delivery O2 Flow Rate FiO2 02/27/24 11:50 97.9 86 16 171/101 (124) 97 97.9 02/27/24 11:40 17 Room Air* 0 21 02/27/24 10:25 98.1 9 20 173/102 (125) 97 173/100 (124) Lab Test 02/27/24 13:31 Range/Units White Blood Count 6.8 4.4-10.8 10^3/uL Red Blood Count 4.80 4.5-5.90 10^6/uL Hemoglobin 15.7 13.5-17.5 g/dL Hematocrit 46.8 41.0-53.0 % Mean Corpuscular Volume 97.6 80.0-100.0 fL Mean Corpuscular Hemoglobin 32.7 H 28.0-32.0 pg Mean Corpuscular Hemoglobin Concent 33.5 32.0-36.0 g/dL Red Cell Distribution Width 15.1 H 11.8-14.3 % Platelet Count 291 140-450 10^3/uL Mean Platelet Volume 7.0 6.9-10.8 fL Neutrophils (%) (Auto) 68.8 37.0-80.0 % Lymphocytes (%) (Auto) 19.2 10.0-50.0 % Monocytes (%) (Auto) 8.0 0.0-12.0 % Eosinophils (%) (Auto) 3.5 0.0-7.0 % Basophils (%) (Auto) 0.5 0.0-2.0 % Neutrophils # (Auto) 4.7 1.6-8.6 10 ^3/uL Lymphocytes # (Auto) 1.3 0.4-5.4 10 ^3/uL Monocytes # (Auto) 0.5 0-1.3 10 ^3/uL Eosinophils # (Auto) 0.2 0-0.8 10 ^3/uL Basophils # (Auto) 0 0-0.2 10 ^3/uL Nucleated Red Blood Cells 0.0 % Erythrocyte Sedimentation Rate 7 0-20 mm/hr Sodium Level 137 136-145 mmol/L Potassium Level 4.7 3.5-5.1 mmol/L Chloride Level 107 98-107 mmol/L Carbon Dioxide Level 22 20-31 mmol/L Anion Gap 8 5-15 Blood Urea Nitrogen 16 9-23 mg/dL Creatinine 0.83 0.700-1.30 mg/dL Glomerular Filtration Rate Calc 100 >90 mL/min BUN/Creatinine Ratio 19.3 10.0-20.0 Serum Glucose 102 74-106 mg/dL Lactic Acid Level 1.4 0.4-2.0 mmol/L Calcium Level 10.1 8.7-10.4 mg/dL Total Bilirubin 0.4 0.2-1.0 mg/dL Aspartate Amino Transferase (AST) 29 13-40 U/L Alanine Aminotransferase (ALT) 66 H 7-40 U/L Alkaline Phosphatase 103 46-116 U/L C-Reactive Protein High Sensitivity 1.22 H <1.0 mg/dL Total Protein 7.4 5.7-8.2 g/dL Albumin 4.6 3.2-4.8 g/dL X-Ray, Labs, Meds, VS Comment XR Left Hand FINDINGS/IMPRESSION: There is no evidence of acute fracture or dislocation. Soft tissue swelling about the 3rd digit. Chronic deformity involving the base of the 3rd middle phalanx. No acute fracture. The alignment is anatomical. There is no radiopaque foreign body. XR Right Hand FINDINGS/IMPRESSION: There is no evidence of acute fracture or dislocation. Soft tissue swelling overlying the 4th digit. No acute fracture. The alignment is anatomical. There is no radiopaque foreign body. CT Left Upper Extremity with contrast IMPRESSION: 1. No acute osseous abnormality. 2. 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 Several subcentimeter intra-articular loose bodies noted. 3. Third flexor tenosynovitis throughout the finger and hand that could be inflammatory or infectious in etiology. Subcentimeter densities in the periphery of the 3rd flexor tendon at the level of the PIP joint that may represent calcifications or suture material. Recommend further evaluation with MRI without and with IV contrast if clinically warranted. Ultrasound May also be helpful. and proximal phalanx CT Right Upper Extremity with contrast Impression: 1. No acute osseous abnormality. 2. Mild dorsal soft tissue edema. No focal fluid collections or subcutaneous emphysema. MDM: Patient with history as above presented with dog bite. History obtained from patient. Patient was nontoxic, stable, afebrile, ambulatory, no acute distress. Exam as above. Labs reviewed. CBC did not show leukocytosis. CMP did not show significant electrolyte abnormalities. Lactic acid within normal limits. CRP elevated at 1.22. Independently reviewed imaging. X-ray of bilateral hands did not show acute fracture or dislocation. CT of the bilateral upper extremities with contrast showed a 3rd flexor tenosynovitis on the left finger. Reviewed external records. All findings were discussed with the patient. Differential diagnosis considered. Overall presentation is consistent with flexor tenosynovitis. Low suspicion for acute fractures, dislocation, sepsis. Ordered Blaine for the patient in the ED. Ordered IV antibiotics for flexor tenosynovitis. I have attempted to initiate transfer to [facility] for hand surgery, however patient states that he can not be transferred today. He states that he will not have anyone to pick him up after he get transferred. Patient states that he would like leave against medical advice and states that he would follow up and go to the emergency room a [facility] tomorrow. I have advised patient to stay in this ER to at least get IV antibiotics and then sign out against medical advice. The patient has capacity to leave AMA. The patient is clinically sober, free from distracting injury, appears to have intact insight, judgment, and reason; therefore, the patient has the capacity to make decisions. I explained to the patient that these symptoms may represent a serious underlying medical condition and the patient verbalized understanding of my concerns and understands the consequences of leaving without complete evaluation. I had a discussion with the patient about their workup and results, and informed the patient what the next step in diagnosis and treatment would be, and they verbalized understanding of this as well. I explained the risks of leaving without further workup or treatment, which included reasonably foreseeable complications such as , serious injury, prolonged illness, and permanent disability. I discussed the specific benefits of additional treatment and also offered alternatives to departing AMA, such as assigning the patient a different provider or an alternate workup pathway. However, the patient declined and insisted on leaving against medical advice. Advised the patient to wait to get IV antibiotics and then signed out AMA. When calling the patient back to get IV antibiotics, the patient did not answer after multiple attempts, therefore the patient had eloped. Disposition: Patient eloped This medical document was created using the [employer] dictation system. Although this document has been carefully reviewed, there may still be some phonetic and typographical errors, which are due to imperfections of the software program, and do not reflect any compromise in the patient's medical care. Time of 1ST Reevaluation: 15:20 Reevaluation 1ST: Unchanged Reevaluation 2ND: Patient eloped Patient Education/Counseling: Diagnosis, Treatment, Prognosis, Need For Follow Up Family Education/Counseling: No Family Present Departure 1 Departure Time of Disposition: 17:08 Impression: Primary Impression: Flexor tenosynovitis of finger Additional Impression: Dog bite Qualified Codes: W54.0XXA - Bitten by dog, initial encounter Disposition: 07 LEFT AWOL/ELOPED Condition: Fair Critical Care Note Critical Care Time?: No Stability Stability form required: No Heart Score Heart Score: Heart Score Response (Comments) Value History N/A 0 EKG N/A 0 Age N/A 0 Risk Factors N/A 0 Troponin N/A 0 Total 0 ISAK VOSS Feb 27, 2024 15:12
[2024-02-27 15:47] LABS: Erythrocyte Sedimentation Rate 7 mm/hr (0-20)
[2024-02-27] MEDS ORDERED: VANCOMYCIN 1GM/250ML KIT 250 ML IV SCH (22:15)
== END 2024-02-27 17:14 | disposition left against medical advice (07) ==
LOC: ER 10:14
DX: S61.252A Open bite of right middle finger without damage to nail, initial encounter (principal); M65.841 Other synovitis and tenosynovitis, right hand; I10 Essential (primary) hypertension; F17.210 Nicotine dependence, cigarettes, uncomplicated; K21.9 Gastro-esophageal reflux disease without esophagitis; F12.10 Cannabis abuse, uncomplicated; F15.10 Other stimulant abuse, uncomplicated; Z79.1 Long term (current) use of non-steroidal anti-inflammatories (NSAID); Z79.52 Long term (current) use of systemic steroids; Z87.440 Personal history of urinary (tract) infections; Z88.8 Allergy status to other drugs, medicaments and biological substances; Z98.890 Other specified postprocedural states; W54.0XXA Bitten by dog, initial encounter; Y93.89 Activity, other specified; Y92.89 Other specified places as the place of occurrence of the external cause; Y99.8 Other external cause status
CPT/HCPCS: 36415; 73130; 73201; 80053; 83605; 85025; 85652; 86141; 99285; Q9967

== ENCOUNTER 2024-06-26 09:40 | Emergency (ER) | payer MEDICAID ==
[~2024-06-26] VITALS: Ht 180.3 cm; Wt 77.0 kg
--- NOTE | 2024-06-26 10:26 | ED.PDOC ---
GI ASSESSMENT HPI Comments 59Y M with PMHx HTN, GERD, CKF, and hernia repair presents to ED with chief complaint bloody stool since this morning with abd pain, bloating, and constipation. Pt denies fever, chills, and n/v/d. Pt had colonoscopy performed years ago but did not follow up for results. No other symptoms or history reported. Chief Complaint: GI Bleed Time Seen by MD: 09:50 Primary Care Provider: NONE Reviewed Notes: Nurses Notes, Medications, Allergies Allergies: Coded Allergies: Prednisone (Verified Allergy, Unknown, 12/20/22) Home Meds Active Scripts Cephalexin Monohydrate (Cephalexin) 500 Mg Cap, 500 MG PO Q8HR for 7 Days, #21 CAP Prov:PRISCA SALINAS DO 02/24/24 Hydrocodone-Acetaminophen (Hydrocodone Bitartrate/AC 5-325 mg) 1 Tab Tab, 1 TAB PO Q8HPRN PRN for 5 Days, #8 TAB Prov:JASS KNIGHT AD TERMINAL MAKEUP OPERATOR 05/07/23 Sulfamethoxazole W/Trimethopri (Bactrim Ds Tablet) 1 Tab Tb, 1 TAB PO BID for 7 Days, #14 TAB Prov:JASS KNIGHT AD TERMINAL MAKEUP OPERATOR 05/07/23 Ciprofloxacin Hcl (Cipro) 500 Mg Tab, 1 TAB PO BID for 7 Days, #14 TAB Prov:JASS KNIGHT AD TERMINAL MAKEUP OPERATOR 05/07/23 Hydrocodone-Acetaminophen (Hydrocodone Bitartrate/AC 10-325 mg) 1 Tab Tab, 1 TAB PO Q8HP PRN, #10 TAB Prov:MARIBETH DIOP PAC 12/20/22 Ibuprofen Micronized (Ibuprofen) 800 Mg Tab, 800 MG PO Q8HP PRN, #30 TAB Prov:MARIBETH DIOP PAC 12/20/22 Lidocaine HCl (Mouth-Throat) (Lidocaine HCl Viscous) 2 % Yaima, 5 ML MT TID, #100 ML Prov:BONIFACIO GALLEGOS 12/12/22 Tramadol Hcl (Tramadol Hcl) 50 Mg Tab, 50 MG PO TID, #20 TAB Prov:BONIFACIO GALLEGOS 12/12/22 Cephalexin (KEFLEX CAPSULE) 250 Mg Cp, 1 CAP PO QID for 7 Days, #28 CAP Prov:PRISCA SALINAS DO 09/30/22 Ciprofloxacin Hcl (Cipro) 500 Mg Tab, 1 TAB PO BID, #20 TAB Prov:BONIFACIO GALLEGOS 07/29/22 Meloxicam (Mobic) 7.5 Mg Tab, 7.5 MG PO BID, #30 TAB Prov:BONIFACIO GALLEGOS 07/22/22 Acetaminophen (Tylenol 8 Hour Arthritis) 650 Mg Tab, 650 MG PO TID, #30 TAB Prov:BONIFACIO GALLEGOS 03/24/22 Hydrocodone-Acetaminophen (Hydrocodone Bitartrate/AC 5-325 mg) 1 Tab Tab, 1 TAB PO Q6HPRN PRN, #15 TAB Prov:MARIBETH DIOP PAC 03/23/22 Cyclobenzaprine Hcl (Cyclobenzaprine Hcl) 10 Mg Tab, 10 MG PO TIDP PRN, #20 TAB Prov:MARIBETH DIOP [facility] 03/23/22 Ibuprofen Micronized (Ibuprofen) 800 Mg Tab, 800 MG PO TIDP PRN, #30 TAB Prov:MARIBETH DIOP [facility] 03/23/22 Promethazine-Dm (Promethazine Dm 6.25-15 mg/5Ml) 1 Yaima Yaima, 5 ML PO TID, #150 ML Prov:BONIFACIO GALLEGOS 02/17/22 Prednisone (Prednisone) 20 Mg Tab, 60 MG PO DAILY, #15 MG Prov:BONIFACIO GALLEGOS 02/17/22 Azithromycin (ZITHROMAX TABLET) 250 Mg Tb, 250 MG PO DAILY, #6 TAB Prov:BONIFACIO GALLEGOS 02/17/22 Benzonatate (Tessalon Perles) 100 Mg Cap, 1 CAP PO TID for 7 Days, #21 CAP Prov:MARIBETH DIOP 01/26/22 Dextromethorphan-Guaifenesin (Mucinex Dm Maximum Streng) 1 Tab Tab, 1 TAB PO BID for 5 Days, #10 TAB Prov:MARIBETH DOIP 01/26/22 Chlorhexidine Gluconate (Mouth (CHLORHEXIDINE ORAL RINSE) 473 Ml So, 15 ML MT Q12HR, #200 ML Prov:JOSE F POST TONNAGE COMPILATION CLERK 01/19/22 Baclofen (Baclofen) 10 Mg Tab, 10 MG PO TID, #30 TAB Prov:JOSE F [employer] TONNAGE COMPILATION CLERK 01/19/22 Hydrocodone-Acetaminophen (Hydrocodone Bitartrate/AC 5-325 mg) 1 Tab Tab, 1 TAB PO TID for 7 Days, #21 TAB Prov:MARIBETH DIOP PAC 01/11/22 Tramadol Hcl (Tramadol Hcl) 50 Mg Tab, 50 MG PO BID for 10 Days, #20 TAB Prov:MARIBETH DIOP PAC 01/11/22 Cyclobenzaprine HCl (Cyclobenzaprine Hydrochlo) 10 Mg Tab, 10 MG PO BID for 10 Days, #20 TAB Prov:MARIBETH DIOP PAC 01/11/22 Cephalexin ( Keflex 500) 500 Mg Cap, 1 CAP PO QID for 10 Days, #40 CAP Prov:MARIBETH DIOP PAC 01/11/22 Tramadol Hcl (Ultram) 50 Mg Tab, 1 TAB PO BID, #20 TAB Prov:BONIFACIO GALLEGOS 01/06/22 Hydrocodone-Acetaminophen (Hydrocodone Bitartrate/AC 5-325 mg) 1 Tab Tab, 1 TAB PO BID, #10 TAB Prov:BONIFACIO GALLEGOS 12/23/21 Ciprofloxacin Hcl (Cipro) 500 Mg Tab, 1 TAB PO BID, #14 TAB Prov:BONIFACIO GALLEGOS 12/23/21 Prednisone (Prednisone) 20 Mg Tab, 40 MG PO DAILY, #20 MG Prov:BONIFACIO GALLEGOS 12/15/21 Meloxicam (Mobic) 7.5 Mg Tab, 7.5 MG PO BID, #30 TAB Prov:BONIFACIO GALLEGOS 12/15/21 Tramadol Hcl (Ultram) 50 Mg Tab, 1 TAB PO BID, #20 TAB Prov:BONIFACIO GALLEGOS 11/17/21 Tramadol Hcl (Ultram) 50 Mg Tab, 50 MG PO BID, #20 TAB Prov:BONIFACIO GALLEGOS 10/27/21 Pantoprazole Sodium Sesquihydr (Protonix) 40 Mg Tab, 40 MG PO DAILY, #20 TAB Prov:BONIFACIO GALLEGOS 09/30/21 Tramadol Hcl (Ultram) 50 Mg Tab, 50 MG PO BID, #20 TAB Prov:BONIFACIO GALLEGOS 09/30/21 Ibuprofen (Ibuprofen) 800 Mg Tab, 800 MG PO TID PRN, #30 TAB Prov:BONIFACIO GALLEGOS 09/08/21 Cyclobenzaprine Hcl (Cyclobenzaprine Hcl) 5 Mg Tab, 10 MG PO BID, #20 TAB Prov:BONIFACIO GALLEGOS 09/03/21 Acetaminophen (Tylenol 8 Hour Arthritis) 650 Mg Tab, 650 MG PO TID, #30 TAB Prov:BONIFACIO GALLEGOS 08/25/21 Cyclobenzaprine Hcl (Cyclobenzaprine Hcl) 10 Mg Tab, 10 MG PO QHSP PRN, #20 TAB Prov:BONIFACIO GALLEGOS 08/14/21 Ibuprofen (Ibuprofen) 800 Mg Tab, 800 MG PO TID PRN, #30 TAB Prov:BONIFACIO GALLEGOS 08/14/21 Naproxen (NAPROSYN TABLET) 500 Mg Tb, 1 TAB PO BID PRN, #30 TAB 0 Refills Prov:KARLOS MAHAJAN 06/09/21 Cyclobenzaprine Hcl (Cyclobenzaprine Hcl) 5 Mg Tab, 1 TAB PO QPM PRN, #14 TAB 0 Refills Prov:KARLOS MAHAJAN 06/09/21 Reported Medications Tamsulosin Hcl (Tamsulosin Hcl) 0.4 Mg Cap, 2 CAP PO DAILY 09/28/22 Finasteride (Finasteride) 5 Mg Tab, 1 TAB PO DAILY 09/28/22 Mode of Arrival: Ambulatory Timing: Hours Duration: Since onset Prehospital treatment: None Quality: Other Vomitus: None Stool: Blood Streaked, Minimal Severity: Mild Recent: None Recent Hx of: None Pain Location: Diffuse Modifying Factors: Nothing Associated sign and symptoms: Constipation, Abdominal Pain, Blood in Stool Past Medical History PAST MEDICAL HISTORY: Arthritis, CKF, GERD, HTN, UTI'S Surgical History: Hernia Repair Family History Family History: Reviewed,noncontributory to illness, No family hx of Cancer, No family hx of DM, No family hx of Heart araceli Social History Smoker: Cigarettes, Less Than 1 Pack/Day Alcohol: Occasionally Drugs: Marijuana, Methamphetamine Lives In: Home Constitutional: denies: chills, diaphoresis, fatigue, fever, malaise, sweats, weakness, others EENTM: denies: blurred vision, double vision, ear bleeding, ear discharge, ear drainage, ear pain, ear ringing, eye pain, eye redness, hearing loss, mouth pain, mouth swelling, nasal discharge, nose bleeding, nose congestion, nose pain, photophobia, tearing, throat pain, throat swelling, voice changes, others Respiratory: denies: cough, hemoptysis, orthopnea, SOB at rest, shortness of breath, SOB with excertion, stridor, wheezing, others Cardiovascular: denies: chest pain, dizzy spells, diaphoresis, Dyspnea on exertion, edema, irregular heart beat, left arm pain, lightheadedness, palpitations, PND, syncope, others Gastrointestinal: reports: abdomen distended (bloating), abdominal pain, blood streaked bowels, constipated, rectal bleeding; denies: diarrhea, dysphagia, difficulty swallowing, hematemesis, melena, nausea, poor appetite, poor fluid intake, rectal pain, vomiting, others Genitourinary: denies: burning, dysuria, flank pain, frequency, hematuria, incontinence, penile discharge, penile sore, pain, testicle pain, testicle swelling, urgency, others Neurological: denies: dizziness, fainting, headache, left sided numbness, left sided weakness, numbness, paresthesia, pre-existing deficit, right sided numbness, right sided weakness, seizure, speech problems, tingling, tremors, weakness, others Musculoskeletal: denies: back pain, gout, joint pain, joint swelling, muscle pain, muscle stiffness, neck pain, others Integumetry: denies: bruises, change in color, change in hair/nails, dryness, laceration, lesions, lumps, rash, wounds, others Allergic/Immunocompromised: denies: Difficulty Healing, Frequent Infections, Hives, Itching, others Hematologic/Lymphatic: denies: anemia, blood clots, easy bleeding, easy bruising, swollen glands, others Endocrine: denies: excessive hunger, excessive sweating, excessive thirst, excessive urination, flushing, intolerance to cold, intolerance to heat, unexplained weight gain, unexplained weight loss, others Psychiatric: denies: anxiety, bipolar disorder, depression, hopeless, panic disorder, schizophrenia, sleepless, suicidal, others All Other Systems: Reviewed and Negative Physical Exam General Appearance: No Apparent Distress, Normal HEENT: Normal ENT Inspection, Pharynx Normal, TMs Normal Neck: Full Range of Motion, Non-Tender, Normal, Normal Inspection Respiratory: Chest Non-Tender, Lungs Clear, No Accessory Muscle Use, No Respiratory Distress, Normal Breath Sounds Cardiovascular: No Edema, No JVD, No Murmur, No Gallop, Normal Peripheral Pulses, Regular Rate/Rhythm Breast Exam: Deferred Gastrointestinal: No Organomegaly, Non Tender, No Pulsatile Mass, Normal Bowel Sounds, Soft Genitalia: Deferred Pelvic: Deferred Rectal: Deferred Extremities: No calf tenderness, Normal capillary refill, Normal inspection, Normal range of motion, Non-tender, No pedal edema Musculoskeletal : Apperance: Normal Neurologic: Alert, fundraising director II-XII nml as Tested, No Motor Deficits, Normal Affect, Normal Mood, No Sensory Deficits Cerebellar Function: NOT DONE Reflexes: NOT DONE Skin: Dry, Normal Color, Warm Lymphatic: No Adenopathy Was a procedure done? Was a procedure done?: No GI differential Dx Differential Diagnosis: Diverticular disease, GI hemorrhage X-Ray, Labs, Meds, VS Vital Signs Date Time Temp Pulse Resp B/P (MAP) Pulse Ox O2 Delivery O2 Flow Rate FiO2 06/26/24 10:47 100 18 98 Room Air 06/26/24 10:47 98.3 100 18 123/75 (91) 98 98.3 06/26/24 10:39 98.3 101 18 123/75 (91) 98 98.3 06/26/24 10:28 84 20 96 Room Air* 0 21 06/26/24 09:59 98.1 113 18 143/85 (104) 97 98.1 Lab Test 06/26/24 10:13 Range/Units White Blood Count 12.3 H 4.4-10.8 10^3/uL Red Blood Count 4.43 L 4.5-5.90 10^6/uL Hemoglobin 13.2 L 13.5-17.5 g/dL Hematocrit 40.5 L 41.0-53.0 % Mean Corpuscular Volume 91.4 80.0-100.0 fL Mean Corpuscular Hemoglobin 29.7 28.0-32.0 pg Mean Corpuscular Hemoglobin Concent 32.4 32.0-36.0 g/dL Red Cell Distribution Width 14.8 H 11.8-14.3 % Platelet Count 388 140-450 10^3/uL Mean Platelet Volume 6.7 L 6.9-10.8 fL Neutrophils (%) (Auto) 84.4 H 37.0-80.0 % Lymphocytes (%) (Auto) 9.1 L 10.0-50.0 % Monocytes (%) (Auto) 5.3 0.0-12.0 % Eosinophils (%) (Auto) 0.9 0.0-7.0 % Basophils (%) (Auto) 0.3 0.0-2.0 % Neutrophils # (Auto) 10.4 H 1.6-8.6 10 ^3/uL Lymphocytes # (Auto) 1.1 0.4-5.4 10 ^3/uL Monocytes # (Auto) 0.7 0-1.3 10 ^3/uL Eosinophils # (Auto) 0.1 0-0.8 10 ^3/uL Basophils # (Auto) 0 0-0.2 10 ^3/uL Nucleated Red Blood Cells 0.1 % Prothrombin Time 11.0 9.3-11.8 sec Prothrombin Time INR 1.04 0.9-1.15 Activated Partial Thromboplast Time 32.9 24.5-34.5 SEC Sodium Level 134 L 136-145 mmol/L Potassium Level 3.8 3.5-5.1 mmol/L Chloride Level 100 98-107 mmol/L Carbon Dioxide Level 25 20-31 mmol/L Anion Gap 9 5-15 Blood Urea Nitrogen 20 9-23 mg/dL Creatinine 0.96 0.700-1.30 mg/dL Glomerular Filtration Rate Calc 90 >90 mL/min BUN/Creatinine Ratio 20.8 H 10.0-20.0 Serum Glucose 123 H 74-106 mg/dL Calcium Level 10.1 8.7-10.4 mg/dL Current Medications Medications (Trade) Dose Ordered Sig/Cem Route Start Time Stop Time Status Last Admin Sodium Chloride 1,000 ml @ 1,000 mls/hr Q1H ONCE IV 06/26/24 10:00 06/26/24 10:59 DC 06/26/24 10:33 Ondansetron HCl (Zofran) 4 mg ONCE ONCE IV 06/26/24 10:00 06/26/24 10:01 DC 06/26/24 10:39 Time of 1ST Reevaluation: 10:20 Reevaluation 1ST: Unchanged Patient Education/Counseling: Diagnosis, Treatment Family Education/Counseling: No Family Present Departure 1 Departure Time of Disposition: 11:45 (Patient presented with abdominal pain that was concerning for possible appendicits, gastritis, cholecystitis, colitis, gastroenteritis, sbo, or orther possible surgical emergency. Data: 1. I ordered and reviewed the result of at least 3 labs including a CBC, BMP, and Urinalysis. 2. I independently interpreted the following tests: CT Abdoment and Pelvis is concerning for diffuse colitis .Risk:This patient has a high risk of morbidity due to further diagnostic testing or treatment and may suffer from an acute abdominal process disorder. Workup reveals diffuse colitis and bright red blood per rectum and patient should be admitted for further workup. and possible expert consultation. ) Impression: Primary Impression: Colitis Additional Impression: Bright red blood per rectum Disposition: ADMITTED INPATIENT Admit to: Med Surg Condition: Serious Critical Care Note Critical Care Time?: Yes Critical care comment: Concern for GI bleed Authorized and Performed by: Apurva Cowart MD Total critical care time: Approximately 38 minutes Due to a high probability of clinically significant, life threatening deterioration, the patient required my highest level of preparedness to intervene emergently and I personally spent this critical care time directly and personally managing the patient. This critical care time included obtaining a history; examining the patient; pulse oximetry; ordering and review of studies; arranging urgent treatment with development of a management plan; evaluation of patient's response to treatment; frequent reassessment; and, discussions with other providers. This critical care time was performed to assess and manage the high probability of imminent, life-threatening deterioration that could result in multi-organ failure. It was exclusive of separately billable procedures and treating other patients and teaching time. Please see my other sections and the rest of the note for further information on patient assessment and treatment. Stability Stability form required: No Heart Score Heart Score: Heart Score Response (Comments) Value History N/A 0 EKG N/A 0 Age N/A 0 Risk Factors N/A 0 Troponin N/A 0 Total 0 I personally scribed for APURVA COWART MD ([email or web address]) on 06/26/24 at 10:26. Electronically submitted by Massiel Mills ([email or web address]). APURVA COWART MD Jun 26, 2024 10:26
[2024-06-26 10:28] VITALS: PULSE 84; RESP 20; O2SAT 96
[2024-06-26] MEDS: SODIUM CHLORIDE 0.9% 1,000 ML IV ONE (10:33)
[2024-06-26] MEDS: ONDANSETRON HCL 4 MG/2 ML VIAL IV ONE (10:39)
[2024-06-26 10:43] LABS: Basophils # (auto) 0 10 ^3/uL (0-0.2); Basophils % (auto) 0.3 % (0.0-2.0); Eosinophils # (auto) 0.1 10 ^3/uL (0-0.8); Eosinophils % (auto) 0.9 % (0.0-7.0); Hematocrit 40.5 % (41.0-53.0); Hemoglobin 13.2 g/dL (13.5-17.5); Lymphocytes # (auto) 1.1 10 ^3/uL (0.4-5.4); Lymphocytes % (auto) 9.1 % (10.0-50.0); Mean Corpuscular Hemoglobin 29.7 pg (28.0-32.0); Mean Corpuscular Hgb Conc. 32.4 g/dL (32.0-36.0); Mean Corpuscular Volume 91.4 fL (80.0-100.0); Monocytes # (auto) 0.7 10 ^3/uL (0-1.3); Monocytes % (auto) 5.3 % (0.0-12.0); Neutrophils # (auto) 10.4 10 ^3/uL (1.6-8.6); Neutrophils % (auto) 84.4 % (37.0-80.0); Nucleated Red Blood Cells % 0.1 %; Platelet Count (auto) 388 10^3/uL (140-450); Red Blood Cells 4.43 10^6/uL (4.5-5.90); Red Cell Distribution Width 14.8 % (11.8-14.3); White Blood Cell 12.3 10^3/uL (4.4-10.8)
[2024-06-26 10:46] LABS: Anion Gap 9 (5-15); Calcium 10.1 mg/dL (8.7-10.4); Carbon Dioxide 25 mmol/L (20-31); Chloride 100 mmol/L (98-107); Potassium 3.8 mmol/L (3.5-5.1)
[2024-06-26 10:50] LABS: Sodium 134 mmol/L (136-145)
[2024-06-26 10:51] LABS: BUN/Creatinine Ratio 20.8 (10.0-20.0); Blood Urea Nitrogen 20 mg/dL (9-23)
[2024-06-26 10:52] LABS: Glucose 123 mg/dL (74-106)
[2024-06-26 10:57] LABS: INR 1.04 (0.9-1.15); Partial Thromboplastin Time 32.9 SEC (24.5-34.5)
[2024-06-26] MEDS: IOHEXOL 300 MG/ML 100ML BOTTLE IJ ONE (11:00)
--- NOTE | 2024-06-26 11:33 | DVH ---
Exam: CT CT AB PEL WITH IV CON ONLY History: brbpr Comparison Study: CT scan of the abdomen pelvis performed on Contrast: Type of contrast: Omnipaque 300 Contrast injected: 100 mL Contrast wasted: 0 TECHNIQUE: CT of the abdomen pelvis was performed from the lung bases to the proximal femurs using in travenous contrast. Coronal and sagittal reformatted images are submitted. Radiation Dose Information: CT Dose: CTDI volume is 9.91 mGy. Dose-length product is 562.1 mGy*cm FINDINGS: Lung Bases: No acute or significant lung base finding. Normal heart size. No pleural or pericardial effusion. Liver: The liver is normal in size. No focal lesions. Normal hepatic vascular enhancement. Diffusely hypoattenuating liver parenchyma consistent with hepatic steatosis. Gallbladder and Biliary Tree: Unremarkable gallbladder. No biliary ductal dilatation. Spleen: Unremarkable Pancreas: Fatty replacement of the pancreatic parenchyma. No ductal dilatation. Adrenal Glands: Unremarkable Kidneys: Kidneys demonstrate normal symmetric enhancement without focal lesions, calculi or hydroneph rosis. 2.7 cm left renal cyst. Bladder: Adequately distended. Right posterior bladder diverticulum noted. Bowel: The stomach is grossly normal in appearance. Fluid-filled small bowel loops. Long segment mur al thickening of the descending and sigmoid colon with pericolonic fat stranding. Normal caliber appe ndix. No inflammatory changes. Intraperitoneal cavity: No pneumoperitoneum. No ascites. Lymphadenopathy: No mesenteric, retroperitoneal or periportal lymphadenopathy. Abdominal Wall and Mesentery: Unremarkable. Vasculature: The visualized abdominal aorta is normal in size and caliber. Abdominal and pelvic vess els demonstrate normal enhancement. Pelvic Organs: Enlarged prostate. Musculoskeletal: No aggressive focal bony lesions, acute fractures or dislocation. Multilevel lumbar spondylosis. Soft tissues: Unremarkable. IMPRESSION: 1. Findings compatible with colitis involving the descending and sigmoid colon. No evidence of perfo ration. No fluid collection. 2. Hepatic steatosis. 3. Enlarged prostate. All CT scans at this medical facility are performed using dose modulation techniques as appropriate t o a performed exam including the following: Automated exposure control was utilized; adjustment of th e MA and/or KV according to patient size; and use of iterative reconstruction technique.
[2024-06-26 12:08] VITALS: BP 126/76; PULSE 98; RESP 18; TEMP 97.5; O2SAT 97
[2024-06-26] MEDS: ceFAZolin 2 GM/D5W50ml 50 ML IV ONE (12:14)
[2024-06-26] MEDS: metroNIDAZOLE 500MG/100ML 100 ML IV ONE (12:14)
[2024-06-26] MEDS ORDERED: AUG875T PO (13:29)
== END 2024-06-26 13:28 | disposition left against medical advice (07) ==
LOC: ER 09:40
DX: K52.9 Noninfective gastroenteritis and colitis, unspecified (principal); F17.210 Nicotine dependence, cigarettes, uncomplicated; I10 Essential (primary) hypertension; K21.9 Gastro-esophageal reflux disease without esophagitis; Z98.890 Other specified postprocedural states; Z88.8 Allergy status to other drugs, medicaments and biological substances; Z79.899 Other long term (current) drug therapy
CPT/HCPCS: 36415; 74177; 80048; 85025; 85610; 85730; 96361; 96374; 99285; J0690; J2405; J7030; Q9967; J3490

== ENCOUNTER 2024-08-17 12:16 | Emergency (ER) | payer MEDICAID ==
[~2024-08-17] VITALS: Ht 180.3 cm; Wt 79.5 kg
[~2024-08-17 12:16] MED LIST changes: +AUG875T PO
[2024-08-17 12:22] VITALS: BP 159/94; PULSE 105; RESP 18; TEMP 97.9; O2SAT 98
== END 2024-08-17 13:48 | disposition left against medical advice (07) ==
LOC: ER 12:16
DX: M25.511 Pain in right shoulder (principal); Z53.21 Procedure and treatment not carried out due to patient leaving prior to being seen by health care provider

== ENCOUNTER 2024-11-07 07:13 | Inpatient (IN) | payer MEDICAID ==
[~2024-11-07] VITALS: Ht 180.3 cm; Wt 83.7 kg
[~2024-11-07 07:13] MED LIST changes: +ACET300T58 PO; +ALBUAER3 IN; -AUG875T PO; -AZIT-185 PO; -BACDST PO; -BACL10TA PO; -BENZ100C19 PO; -CEPH-510 PO; -CEPH250C PO; -CEPH500C PO; -CHL12OR MT; -CIPR-173 PO; -CYCL-611 PO; -CYCL-837 PO; -CYCL-839 PO; -DEXT60TA4 PO; +DOCU-94 PO; -FIN5T PO; -HYDR-4902 PO; -IBUP-1456 PO; -LIDO2SOL26 MT; -MELO7.5T9 PO; -NAP500T PO; -PANT40TA2 PO; -PRED20TA2 PO; -PROM1SOL4 PO; -TAMS0.4C39 PO; -TRAM-297 PO
[2024-11-07] MEDS: CLINDAMYCIN 600MG IV 50 ML IV ONE (09:59)
[2024-11-07] MEDS ORDERED: fentaNYL CITRATE 100 MCG/2 ML VL ONE (10:00)
[2024-11-07] MEDS ORDERED: PROPOFOL 10 MG/ML 20 ML IV ONE (10:01)
[2024-11-07] MEDS ORDERED: METOCLOPRAMIDE HCL 5MG/ml INJ 2ml VIAL ONE (10:01)
[2024-11-07] MEDS ORDERED: MIDAZOLAM HCL 2MG/2ML 2ml VIAL (1mg/ml) ONE (10:01)
[2024-11-07] MEDS ORDERED: ONDANSETRON HCL 4 MG/2 ML VIAL ONE (10:01)
[2024-11-07] MEDS ORDERED: ceFAZolin 1GM VL ONE (10:22)
[2024-11-07] MEDS: VANCOMYCIN HCL 1000 MG VL ONE (10:28)
[2024-11-07] MEDS: TRANEXAMIC ACID 20 ML ONE (10:28)
[2024-11-07] MEDS ORDERED: SUGAMMADEX 200mg/2ml Vial (100MG/ML) IV ONE (12:35)
--- NOTE | 2024-11-07 13:19 | DVH ---
XY R SHOULDER 1V XRAY INDICATION: RIGHT REVERSE TOTAL SHOULDER ARTHROPLASTY TECHNIQUE: Intraoperative fluoroscopic images were obtained TOTAL DOSE AREA PRODUCT: 0.77 mGy 24.7 seconds COMPARISON: CT LT UPPER EXTREMITY W CONTRAS on DOS: 02/27/24 FINDINGS: Successful intraoperative fluoroscopic guidance. IMPRESSION: 1. Successful intraoperative fluoroscopic guidance and please follow up with surgical report.
--- NOTE | 2024-11-07 13:20 | DVH ---
XY C ARM FLUOROSCOPY UP TO 60MIN INDICATION: RIGHT REVERSE TOTAL SHOULDER ARTHROPLASTY TECHNIQUE: Intraoperative fluoroscopic images were obtained TOTAL DOSE AREA PRODUCT: 0..77 mGy 24.7 seconds COMPARISON: XY R HAND 3 VIEW XRAY on DOS: 02/27/24 FINDINGS: Successful intraoperative fluoroscopic guidance. IMPRESSION: 1. Successful intraoperative fluoroscopic guidance and please follow up with surgical report.
[2024-11-07] MEDS ORDERED: HYDROmorphone HCL 2 MG/ML VL/or syr ONE (13:37)
[2024-11-07 13:57] VITALS: PULSE 67; RESP 15; O2SAT 100
[2024-11-07] MEDS ORDERED: ACETAMINOPHEN 325 MG TAB PO PRN (14:00)
[2024-11-07] MEDS ORDERED: NITROGLYCERIN 0.4 MG SL TAB SL PRN (14:00)
[2024-11-07] MEDS ORDERED: MORPHINE SULFATE INJ 2 MG/ml SYRG IV PRN (14:00)
[2024-11-07] MEDS ORDERED: ONDANSETRON HCL 4 MG/2 ML VIAL IV PRN ×2 (14:00→14:15)
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
[2024-11-07] MEDS ORDERED: HYDROmorphone HCL 2 MG/ML VL/or syr IV PRN (14:15)
[2024-11-07 14:30] VITALS: PULSE 80; RESP 13; O2SAT 97
[2024-11-07] MEDS: ACETAMINOPHEN IV 1000 MG/100ML (10MG/ML) IV ONE (14:30)
--- NOTE | 2024-11-07 14:39 | DVH ---
CLINICAL INDICATION: s/p right shoulder arthroplasty revision TECHNIQUE: 1 radiographic views of the right hip were obtained. Comparison: XY R SHOULDER 1V XRAY on DOS: 11/07/24, CT RT UPPER EXTREMITY WITH CONT on DOS: 02/27/24, L SHOULDER COMPLETE XRAY on DOS: 03/24/22 FINDINGS/IMPRESSION: Postsurgical changes from right hip arthroplasty.
[2024-11-07] MEDS: BUPIVACAINE 0.25% INJ 50ML VIAL ONE (14:54)
[2024-11-07] MEDS: KETOROLAC TROMETH 30 MG/ML 1ML VIAL ONE (14:55)
[2024-11-07] MEDS: ACETAMINOPHEN IV 100 ML IV ONE (15:20)
[2024-11-07 15:23] VITALS: BP 140/71; PULSE 76; RESP 18; TEMP 97.3; O2SAT 95
[2024-11-07] MEDS: HYDROcodone-ACET 5/325MG TAB PO PRN (15:47)
[2024-11-07] MEDS: LACTATED RINGER'S 1,000 ML IV SCH (15:58)
[2024-11-07] MEDS: ceFAZolin 1GM/50ML 50 ML IV SCH (15:58)
[2024-11-07 17:00] VITALS: BP 140/71; PULSE 82; RESP 18; TEMP 97.3; O2SAT 94
[2024-11-07 17:21] VITALS: RESP 12
[2024-11-07] MEDS: CLINDAMYCIN 600MG IV 50 ML IV SCH (18:17)
[2024-11-07 21:00] VITALS: BP 152/79; PULSE 91; RESP 20; TEMP 98.4; O2SAT 99
[2024-11-07] MEDS: HYDROcodone-ACET 10/325MG TAB PO PRN (21:21)
[2024-11-07] MEDS: DOCUSATE SOD 100 MG CAP PO SCH (21:31)
[2024-11-07] MEDS ORDERED: ENOXAPARIN SOD 30 MG/0.3 ML SYRINGE SC SCH (22:00)
[2024-11-08] VITALS (8 sets, daily range): BP systolic 116–141; BP diastolic 72–89; PULSE 75–88; RESP 17–20; TEMP 97.4–98.9; O2SAT 96–98
[2024-11-08] MEDS: HYDROmorphone HCL 2 MG/ML VL/or syr IV PRN (01:03)
[2024-11-08 07:26] LABS: Hematocrit 30.3 % (41.0-53.0); Hemoglobin 10.5 g/dL (13.5-17.5); Mean Corpuscular Hemoglobin 30.2 pg (28.0-32.0); Mean Corpuscular Volume 87.2 fL (80.0-100.0); Nucleated Red Blood Cells % 0.0 %
[2024-11-08 07:33] LABS: Calcium 9.3 mg/dL (8.7-10.4); Chloride 102 mmol/L (98-107); Potassium 4.4 mmol/L (3.5-5.1); Sodium 136 mmol/L (136-145)
--- NOTE | 2024-11-08 07:33 | DVHPN2 ---
Progress Note - Dictate Date Seen: Nov 08, 2024 Medical Necessity Reason Pt with a Central, PICC or Fol: No Subjective Patient was sitting up comfortably in bed during my evaluation reports some postoperative shoulder pain that is being well managed with the help of pain medication. Patient reports that he has remained in his sling and has committed to remaining compliant in his sling for the next six weeks and advised him that he may continue with gentle npsij-wf-[id number] exercises of his elbow, wrist, and hand. Patient reports that he has been able to get up and walk around without any issues and is feeling well enough to go home. vital signs Vital Sign Date Time Temp Pulse Resp B/P (MAP) Pulse Ox O2 Delivery O2 Flow Rate FiO2 11/08/24 06:38 77 17 141/85 11/08/24 05:00 98.0 98 98.0 11/07/24 20:00 Room Air* 0 21 Total Intake and Output 11/07/24 11/07/24 11/08/24 15:00 23:00 07:00 Intake Total 1070 ml 350 ml 250 ml Output Total 1400 ml Balance 1070 ml 350 ml -1150 ml medications Current Medications Medications Dose Ordered Sig/Cem Route Start Time Stop Time Status Last Admin Dose Admin Lactated Ringer's 1,000 ml @ 100 mls/hr Q10H IV 11/07/24 14:00 11/07/24 15:58 100 MLS/HR Cefazolin Sodium 50 ml @ 50 mls/hr Q6H IV 11/07/24 14:00 11/08/24 03:20 50 MLS/HR Clindamycin Phosphate 50 ml @ 50 mls/hr Q6HR IV 11/07/24 18:00 11/08/24 06:39 50 MLS/HR Acetaminophen 650 mg Q6HP PRN PO 11/07/24 14:00 Acetaminophen/ Hydrocodone Bitart 1 tab Q4HP PRN PO 11/07/24 14:00 11/07/24 15:47 1 TAB Hydromorphone HCl 1 mg Q2HP PRN IV 11/07/24 14:00 11/08/24 06:38 1 MG Ondansetron HCl 4 mg Q6HP PRN IV 11/07/24 14:00 Docusate Sodium 100 mg Q12HR PO 11/07/24 22:00 11/07/24 21:31 100 MG Enoxaparin Sodium 30 mg Q12HR SC 11/07/24 22:00 Hold Acetaminophen/ Hydrocodone Bitart 1 tab Q4HP PRN PO 11/07/24 14:00 11/08/24 05:20 1 TAB Nitroglycerin 0.4 mg Q5MINP PRN SL 11/07/24 14:00 Morphine Sulfate 2 mg Q30M PRN IV 11/07/24 14:00 objective A&O x4 in no acute distress Shoulder range of motion grossly limited with pain on movement Aquacel dressing clean, dry, and intact No distal edema or calf tenderness to palpation Neurovascularly intact with cap refill less than 2 seconds laboratory and microbiology Test 11/08/24 05:48 Range/Units Serum Glucose Pending Assessment/Plan I had a lengthy discussion with the patient and informed him of the intraoperative findings which were suspicious for an infection and are currently pending culture results and Infectious Disease consultation for further evaluation and treatment of his infection. We have initiated him with antib iotics and we will continue into culture results have returned. We will continue observing the patient for now and advised the patient to remain in his sling but may ambulate as tolerated. I also informed the patient that there was significant bone loss that was noted during the explantation and we will be ordering further imaging studies in a few months for further evaluation for any potential future surgeries that may or may not require our level of care. Patient understood and agreed. Plan discussed with: Patient DONOVAN SHAW Nov 08, 2024 07:33
[2024-11-08 07:34] LABS: Anion Gap 9 (5-15); Carbon Dioxide 25 mmol/L (20-31)
[2024-11-08 07:39] LABS: BUN/Creatinine Ratio 16.5 (10.0-20.0); Blood Urea Nitrogen 14 mg/dL (9-23)
[2024-11-08 07:57] LABS: Glucose 120 mg/dL (74-106)
--- NOTE | 2024-11-08 18:53 | DVHHP2 ---
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 s/p right reverse shoulder explantation with concern of joint infection Physical exam AOx4 PERRLA MMM clear breath sounds s1 s2 RRR abdomen soft nontender no LE edema R shoulder in sling Labs EKG imaging reviewed Assessment and plan s/p r reverse shoulder explantation and hemiarthroplasty concern for infection from intraop frozen section c/w iv clinda ancef ID per ortho follow culture diet reg dvt ppx lovenox per ortho full code Plan discussed with: Patient Date of Service: Nov 08, 2024 Billing Provider: ARIANNA MAZARIEGOS MD Common Visit Codes: [id number] INP/OBS CARE (HIGH) ARIANNA MAZARIEGOS MD Nov 08, 2024 18:53
[2024-11-08] MEDS: ACETAMINOPHEN 325 MG TAB PO SCH (21:11)
[2024-11-08] MEDS: MORPHINE SULFATE 4 MG/ML SYR/VIAL IV PRN (23:28)
[2024-11-09 05:00] VITALS: BP 148/83; PULSE 78; RESP 18; TEMP 98.7; O2SAT 98
[2024-11-09 07:16] LABS: Hematocrit 31.4 % (41.0-53.0); Hemoglobin 10.8 g/dL (13.5-17.5); Mean Corpuscular Hemoglobin 29.9 pg (28.0-32.0); Mean Corpuscular Volume 87.0 fL (80.0-100.0); Nucleated Red Blood Cells % 0.0 %
[2024-11-09 07:18] LABS: Chloride 101 mmol/L (98-107); Potassium 4.3 mmol/L (3.5-5.1)
[2024-11-09 07:19] LABS: Anion Gap 9 (5-15); Calcium 9.4 mg/dL (8.7-10.4); Carbon Dioxide 26 mmol/L (20-31); Sodium 136 mmol/L (136-145)
[2024-11-09 07:24] LABS: BUN/Creatinine Ratio 13.3 (10.0-20.0); Blood Urea Nitrogen 10 mg/dL (9-23)
[2024-11-09 07:27] LABS: Glucose 107 mg/dL (74-106)
[2024-11-09] MEDS: POLYETHYLENE GLYCOL 17 GM PWDR PO SCH (08:46)
[2024-11-09 09:00] VITALS: BP 126/74; PULSE 76; RESP 17; TEMP 98.6; O2SAT 97
--- NOTE | 2024-11-09 11:10 | DVHPN2 ---
Progress Note - Dictate Date Seen: Nov 09, 2024 Medical Necessity Reason Pt with a Central, PICC or Fol: No Subjective Patient was sitting up comfortably in bed during my evaluation reports some postoperative shoulder pain that is being well managed with the help of pain medication. Patient reports that he has remained in his sling and has committed to remaining compliant in his sling for the next six weeks and advised him that he may continue with gentle cvpra-bt-[id number] exercises of his elbow, wrist, and hand which he continues to do so. Patient reports that he has been able to get up and walk around without any issues. vital signs Vital Sign Date Time Temp Pulse Resp B/P (MAP) Pulse Ox O2 Delivery O2 Flow Rate FiO2 11/09/24 09:00 98.6 76 17 126/74 (91) 97 98.6 11/09/24 08:00 Room Air* 0 21 Total Intake and Output 11/08/24 11/08/24 11/09/24 15:00 23:00 07:00 Intake Total 50 ml 1150 ml 650 ml Output Total 1000 ml Balance 50 ml 150 ml 650 ml medications Current Medications Medications Dose Ordered Sig/Cem Route Start Time Stop Time Status Last Admin Dose Admin Lactated Ringer's 1,000 ml @ 100 mls/hr Q10H IV 11/07/24 14:00 11/08/24 10:00 100 MLS/HR Cefazolin Sodium 50 ml @ 50 mls/hr Q6H IV 11/07/24 14:00 11/09/24 08:46 50 MLS/HR Clindamycin Phosphate 50 ml @ 50 mls/hr Q6HR IV 11/07/24 18:00 11/09/24 06:01 50 MLS/HR Enoxaparin Sodium 30 mg Q12HR SC 11/07/24 22:00 Hold Acetaminophen 650 mg Q8HR PO 11/08/24 22:00 11/09/24 05:59 650 MG Polyethylene Glycol 17 gm DAILY PO 11/09/24 10:00 11/09/24 08:46 17 GM Morphine Sulfate 4 mg Q4HPRN PRN IV 11/08/24 19:00 11/09/24 06:01 4 MG objective A&O x4 in no acute distress Shoulder range of motion grossly limited with pain on movement Aquacel dressing clean, dry, and intact No distal edema or calf tenderness to palpation Neurovascularly intact with cap refill less than 2 seconds laboratory and microbiology Laboratory Tests 11/09/24 05:41 Test 11/09/24 05:41 Range/Units Serum Glucose 107 H 74-106 mg/dL Assessment/Plan Continue current management as well as pain control and physical therapy for gait training and advised patient to continue remaining in shoulder immobilizer. Currently pending culture results to determine what antibiotics he can be discharged home with pending ID recommendations. We will continue monitoring patient. Patient understood and agreed. Plan discussed with: Patient DONOVAN SHAW Nov 09, 2024 11:10
[2024-11-09 13:00] VITALS: BP 149/82; PULSE 80; RESP 18; TEMP 98.1; O2SAT 98
--- NOTE | 2024-11-09 16:18 | DVHPN2 ---
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 s/p right reverse shoulder explantation with concern of joint infection seen today, no complaints, pending ID and culture Physical exam AOx4 PERRLA MMM clear breath sounds s1 s2 RRR abdomen soft nontender no LE edema R shoulder in sling Labs EKG imaging reviewed Assessment and plan s/p r reverse shoulder explantation and hemiarthroplasty concern for infection from intraop frozen section c/w iv clinda ancef ID per ortho follow culture diet reg dvt ppx lovenox per ortho full code Plan discussed with: Patient My Orders Orders - ARIANNA MAZARIEGOS MD Procedure Category Date Status Time Acetaminophen Tablet PHA 11/08/24 In Process (Tylenol Tablet) 22:00 Polyethylene Glycol PHA 11/09/24 In Process 17g Powder (Miralax 10:00 Morphine Sulfate PHA 11/08/24 In Process Injection 19:00 Date of Service: Nov 09, 2024 Billing Provider: ARIANNA MAZARIEGOS MD Common Visit Codes: [id number] INP/OBS CARE(HIGH) ARIANNA MAZARIEGOS MD Nov 09, 2024 16:18
[2024-11-09 16:59] VITALS: BP 125/84; PULSE 70; RESP 17; TEMP 98.6; O2SAT 97
[2024-11-09 20:00] VITALS: PULSE 83; RESP 17; O2SAT 95
[2024-11-09 21:00] VITALS: BP 121/69; PULSE 83; RESP 17; TEMP 98.6; O2SAT 95
[2024-11-10] VITALS (7 sets, daily range): BP systolic 116–131; BP diastolic 62–82; PULSE 67–87; RESP 16–18; TEMP 97.8–99.9; O2SAT 96–99
[2024-11-10 06:04] LABS: Hematocrit 31.5 % (41.0-53.0); Hemoglobin 10.7 g/dL (13.5-17.5); Mean Corpuscular Hemoglobin 29.7 pg (28.0-32.0); Mean Corpuscular Volume 87.4 fL (80.0-100.0); Nucleated Red Blood Cells % 0.0 %
[2024-11-10 06:09] LABS: Anion Gap 9 (5-15); Carbon Dioxide 26 mmol/L (20-31); Chloride 101 mmol/L (98-107); Potassium 4.5 mmol/L (3.5-5.1)
[2024-11-10 06:10] LABS: Calcium 9.4 mg/dL (8.7-10.4)
[2024-11-10 06:15] LABS: BUN/Creatinine Ratio 16.4 (10.0-20.0); Blood Urea Nitrogen 12 mg/dL (9-23); Glucose 103 mg/dL (74-106)
[2024-11-10 06:37] LABS: Sodium 136 mmol/L (136-145)
--- NOTE | 2024-11-10 12:29 | DVHPN2 ---
Progress Note - Dictate Date Seen: Nov 10, 2024 Medical Necessity Reason Pt with a Central, PICC or Fol: No Subjective Patient was sitting up comfortably in bed during my evaluation reports some postoperative shoulder pain that continues to be well managed with the help of pain medication. Patient reports that he has remained in his sling and has committed to remaining compliant in his sling for the next six weeks and advised him that he may continue with gentle fujyw-vx-[id number] exercises of his elbow, wrist, and hand which he continues to do so. Patient reports that he has been able to get up and walk around without any issues. Patient is otherwise feeling well denying any other complaints or concerns during my evaluation. vital signs Vital Sign Date Time Temp Pulse Resp B/P (MAP) Pulse Ox O2 Delivery O2 Flow Rate FiO2 11/10/24 09:07 78 18 112/71 11/10/24 09:00 98.8 96 98.8 11/10/24 08:00 Room Air* 0 21 Total Intake and Output 11/09/24 11/09/24 11/10/24 15:00 23:00 07:00 Intake Total 200 ml 720 ml 700 ml Balance 200 ml 720 ml 700 ml medications Current Medications Medications Dose Ordered Sig/Cem Route Start Time Stop Time Status Last Admin Dose Admin Lactated Ringer's 1,000 ml @ 100 mls/hr Q10H IV 11/07/24 14:00 11/08/24 10:00 100 MLS/HR Cefazolin Sodium 50 ml @ 50 mls/hr Q6H IV 11/07/24 14:00 11/10/24 08:36 50 MLS/HR Clindamycin Phosphate 50 ml @ 50 mls/hr Q6HR IV 11/07/24 18:00 11/10/24 11:14 50 MLS/HR Enoxaparin Sodium 30 mg Q12HR SC 11/07/24 22:00 Hold Acetaminophen 650 mg Q8HR PO 11/08/24 22:00 11/10/24 06:28 650 MG Polyethylene Glycol 17 gm DAILY PO 11/09/24 10:00 11/09/24 08:46 17 GM Morphine Sulfate 4 mg Q4HPRN PRN IV 11/08/24 19:00 11/10/24 08:37 4 MG objective A&O x4 in no acute distress Shoulder range of motion grossly limited with pain on movement Aquacel dressing clean, dry, and intact No distal edema or calf tenderness to palpation Neurovascularly intact with cap refill less than 2 seconds laboratory and microbiology Laboratory Tests 11/10/24 05:33 Test 11/10/24 05:33 Range/Units Serum Glucose 103 74-106 mg/dL Assessment/Plan Continue current management with IV antibiotics as well as pain control and physical therapy for gait training and advised patient to continue remaining in shoulder immobilizer. Currently pending culture results to determine what antibiotics he can be discharged home with pending ID recommendations. We will continue monitoring patient. Patient understood and agreed. Plan discussed with: Patient DONOVAN SHAW Nov 10, 2024 12:29
--- NOTE | 2024-11-10 14:46 | DVHPN2 ---
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 s/p right reverse shoulder explantation with concern of joint infection seen today, no complaints, pending ID and culture, reconsult ID Physical exam AOx4 PERRLA MMM clear breath sounds s1 s2 RRR abdomen soft nontender no LE edema R shoulder in sling Labs EKG imaging reviewed Assessment and plan s/p r reverse shoulder explantation and hemiarthroplasty concern for infection from intraop frozen section c/w iv clinda ancef ID per ortho follow culture diet reg dvt ppx lovenox per ortho full code Plan discussed with: Patient My Orders Orders - ARIANNA MAZARIEGOS MD Procedure Category Date Status Time * Infectious Mónica- CONS 11/10/24 Verified Yenny Smith 14:45 Date of Service: Nov 10, 2024 Billing Provider: ARIANNA MAZARIEGOS MD Common Visit Codes: [id number] INP/OBS CARE(MOD) ARIANNA MAZARIEGOS MD Nov 10, 2024 14:46
[2024-11-11] VITALS (7 sets, daily range): BP systolic 97–145; BP diastolic 59–83; PULSE 69–77; RESP 16–20; TEMP 97.2–98.7; O2SAT 96–99
[2024-11-11 06:46] LABS: Anion Gap 9 (5-15); Carbon Dioxide 26 mmol/L (20-31); Chloride 103 mmol/L (98-107); Potassium 4.1 mmol/L (3.5-5.1); Sodium 138 mmol/L (136-145)
[2024-11-11 06:47] LABS: Calcium 9.2 mg/dL (8.7-10.4)
[2024-11-11 06:52] LABS: BUN/Creatinine Ratio 19.2 (10.0-20.0); Blood Urea Nitrogen 15 mg/dL (9-23); Glucose 104 mg/dL (74-106)
[2024-11-11 07:07] LABS: Hematocrit 31.4 % (41.0-53.0); Hemoglobin 10.6 g/dL (13.5-17.5); Mean Corpuscular Hemoglobin 29.4 pg (28.0-32.0); Mean Corpuscular Volume 87.2 fL (80.0-100.0); Nucleated Red Blood Cells % 0.0 %
--- NOTE | 2024-11-11 12:53 | DVHPN2 ---
Progress Note - Dictate Date Seen: Nov 11, 2024 Medical Necessity Reason Pt with a Central, PICC or Fol: No Subjective Patient was sitting up comfortably in bed during my evaluation reports some postoperative shoulder pain that continues to be well managed with the help of pain medication. Patient reports that he has remained in his sling and has committed to remaining compliant in his sling for the next six weeks and advised him that he may continue with gentle zdwva-fo-obpojk exercises of his elbow, wrist, and hand which he continues to do so. Patient reports that he has been able to get up and walk around without any issues. Patient is otherwise feeling well denying any other complaints or concerns during my evaluation. vital signs Vital Sign Date Time Temp Pulse Resp B/P (MAP) Pulse Ox O2 Delivery O2 Flow Rate FiO2 11/11/24 11:45 72 20 133/80 11/11/24 09:15 97.2 98 97.2 11/11/24 08:00 Room Air* 0 21 Total Intake and Output 11/10/24 11/10/24 11/11/24 15:00 23:00 07:00 Intake Total 500 ml 450 ml 630 ml Output Total 3 ml Balance 500 ml 450 ml 627 ml medications Current Medications Medications Dose Ordered Sig/Cem Route Start Time Stop Time Status Last Admin Dose Admin Lactated Ringer's 1,000 ml @ 100 mls/hr Q10H IV 11/07/24 14:00 11/08/24 10:00 100 MLS/HR Cefazolin Sodium 50 ml @ 50 mls/hr Q6H IV 11/07/24 14:00 11/11/24 08:18 50 MLS/HR Clindamycin Phosphate 50 ml @ 50 mls/hr Q6HR IV 11/07/24 18:00 11/11/24 11:14 50 MLS/HR Enoxaparin Sodium 30 mg Q12HR SC 11/07/24 22:00 Hold Acetaminophen 650 mg Q8HR PO 11/08/24 22:00 11/11/24 05:11 650 MG Polyethylene Glycol 17 gm DAILY PO 11/09/24 10:00 11/09/24 08:46 17 GM Morphine Sulfate 4 mg Q4HPRN PRN IV 11/08/24 19:00 11/11/24 11:15 4 MG objective A&O x4 in no acute distress Shoulder range of motion grossly limited with pain on movement Aquacel dressing clean, dry, and intact No distal edema or calf tenderness to palpation Neurovascularly intact with cap refill less than 2 seconds laboratory and microbiology Laboratory Tests 11/11/24 05:35 Test 11/11/24 05:35 Range/Units Serum Glucose 104 74-106 mg/dL Assessment/Plan Continue current management with IV antibiotics as well as pain control and physical therapy for gait training and advised patient to continue remaining in shoulder immobilizer. Currently pending culture results to determine what antibiotics he can be discharged home with pending ID recommendations. We will continue monitoring patient. Patient understood and agreed. Plan discussed with: Patient DONOVAN SHAW Nov 11, 2024 12:53
--- NOTE | 2024-11-11 17:59 | DVHPN2 ---
Subjective Patient denies any shoulder pain still have sling support. Shoulder frozen section cultures are still pending. 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 Medications Current Medications Medications Dose Ordered Sig/Cem Route Start Time Stop Time Status Last Admin Dose Admin Cefazolin Sodium 50 ml @ 50 mls/hr Q6H IV 11/07/24 14:00 11/11/24 14:07 50 MLS/HR Clindamycin Phosphate 50 ml @ 50 mls/hr Q6HR IV 11/07/24 18:00 11/11/24 17:23 50 MLS/HR Enoxaparin Sodium 30 mg Q12HR SC 11/07/24 22:00 Hold Acetaminophen 650 mg Q8HR PO 11/08/24 22:00 11/11/24 14:07 650 MG Polyethylene Glycol 17 gm DAILY PO 11/09/24 10:00 11/09/24 08:46 17 GM Morphine Sulfate 4 mg Q4HPRN PRN IV 11/08/24 19:00 11/11/24 11:15 4 MG Acetaminophen/ Hydrocodone Bitart 1 tab Q6HP PRN PO 11/11/24 17:30 UNV Laboratory Results Laboratory Tests 11/11/24 05:35 Chemistry Test 11/11/24 05:35 Calcium Level 9.2 mg/dL (8.7-10.4) Microbiology Microbiology Date/Time Source Procedure Growth Status 11/07/24 11:20 Shoulder Right Gram Stain Pending Resulted 11/07/24 11:20 Shoulder Right Anaerobic Culture - Preliminary Resulted Assessment/Plan Assessment/Plan 59-year-old male with a known history of reverse shoulder arthroplasty about one year ago presented to the hospital for elective procedure. 1. Status post explantation of reverse shoulder arthroplasty 2. Suspected right shoulder joint infection -continue Ancef, clindamycin, follow up final cultures. Plan discussed with: Patient My Orders Orders - JUANITA WOLF MD Procedure Category Date Status Time Hydrocodone-Acet PHA 11/11/24 Logged 10/325mg Tab ([place] 17:30 Date of Service: Nov 11, 2024 Billing Provider: JUANITA WOLF MD Common Visit Codes: [id number] INP/OBS CARE(MOD) JUANITA WOLF MD Nov 11, 2024 17:59
[2024-11-12] VITALS (7 sets, daily range): BP systolic 133–146; BP diastolic 70–86; PULSE 64–96; RESP 16–20; TEMP 97.4–98.6; O2SAT 96–99
[2024-11-12 07:29] LABS: Hematocrit 32.9 % (41.0-53.0); Hemoglobin 11.0 g/dL (13.5-17.5); Mean Corpuscular Hemoglobin 29.1 pg (28.0-32.0); Mean Corpuscular Volume 86.7 fL (80.0-100.0); Nucleated Red Blood Cells % 0.0 %
[2024-11-12 07:38] LABS: Chloride 103 mmol/L (98-107); Potassium 4.4 mmol/L (3.5-5.1); Sodium 137 mmol/L (136-145)
[2024-11-12 07:39] LABS: Anion Gap 8 (5-15); Calcium 9.2 mg/dL (8.7-10.4); Carbon Dioxide 26 mmol/L (20-31)
[2024-11-12 07:44] LABS: BUN/Creatinine Ratio 17.5 (10.0-20.0); Blood Urea Nitrogen 14 mg/dL (9-23); Glucose 95 mg/dL (74-106)
[2024-11-12] MEDS: HYDROcodone-ACET 10/325MG TAB PO PRN (13:37)
--- NOTE | 2024-11-12 15:15 | DVHPN2 ---
Progress Note - Dictate Date Seen: Nov 12, 2024 Medical Necessity Reason Pt with a Central, PICC or Fol: No Subjective Patient was sitting up comfortably in bed during my evaluation reports some postoperative shoulder pain that continues to be well managed with the help of pain medication. Patient reports that he has remained in his sling and has committed to remaining compliant in his sling for the next six weeks and advised him that he may continue with gentle wpdix-qb-dugvjs exercises of his elbow, wrist, and hand which he continues to do so. Patient reports that he has been able to get up and walk around without any issues. Patient is otherwise feeling well denying any other complaints or concerns during my evaluation. vital signs Vital Sign Date Time Temp Pulse Resp B/P (MAP) Pulse Ox O2 Delivery O2 Flow Rate FiO2 11/12/24 12:56 97.4 82 18 139/86 (103) 99 97.4 11/12/24 08:00 Room Air* 0 21 Total Intake and Output 11/11/24 11/11/24 11/12/24 15:00 23:00 07:00 Intake Total 150 ml 450 ml 546 ml Balance 150 ml 450 ml 546 ml medications Current Medications Medications Dose Ordered Sig/Cem Route Start Time Stop Time Status Last Admin Dose Admin Enoxaparin Sodium 30 mg Q12HR SC 11/07/24 22:00 Hold Acetaminophen 650 mg Q8HR PO 11/08/24 22:00 11/12/24 05:52 650 MG Polyethylene Glycol 17 gm DAILY PO 11/09/24 10:00 11/09/24 08:46 17 GM Morphine Sulfate 4 mg Q4HPRN PRN IV 11/08/24 19:00 11/11/24 22:06 4 MG Acetaminophen/ Hydrocodone Bitart 1 tab Q6HP PRN PO 11/11/24 17:30 11/12/24 13:37 1 TAB Ceftriaxone Sodium/Dextrose 50 ml @ 50 mls/hr DAILY IV 11/12/24 10:00 11/12/24 12:16 50 MLS/HR objective A&O x4 in no acute distress Shoulder range of motion grossly limited with pain on movement Aquacel dressing clean, dry, and intact No distal edema or calf tenderness to palpation Neurovascularly intact with cap refill less than 2 seconds laboratory and microbiology Laboratory Tests 11/12/24 06:25 Test 11/12/24 06:25 Range/Units Serum Glucose 95 74-106 mg/dL Assessment/Plan Continue current management with IV antibiotics as well as pain control and physical therapy for gait training and advised patient to continue remaining in shoulder immobilizer. Culture results showed positive for H influ and pending ID recommendations. We will continue monitoring patient for now. Patient understood and agreed. Plan discussed with: Patient DONOVAN SHAW Nov 12, 2024 15:15
--- NOTE | 2024-11-12 18:43 | DVHPN2 ---
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 starting 2g ceft. picc consult. ss for iv abx at home. Physical exam AOx4 PERRLA MMM clear breath sounds s1 s2 RRR abdomen soft nontender no LE edema R shoulder in sling Labs EKG imaging reviewed Assessment and plan s/p r reverse shoulder explantation and hemiarthroplasty concern for infection from intraop frozen section c/w iv clinda ancef ID per ortho follow culture diet reg dvt ppx lovenox per ortho full code Plan discussed with: Patient My Orders Orders - ARIANNA MAZARIEGOS MD Procedure Category Date Status Time Ceftriaxone 2gm/50ml PHA 11/12/24 In Process D5w (Rocephin 2gm/5 10:00 * Picc Line Consult CONS 11/12/24 Transmitted 09:28 PTPTT LAB 11/13/24 Verified 04:00 Prothrombin Time W/ LAB 11/13/24 Verified INR 04:00 Date of Service: Nov 12, 2024 Billing Provider: ARIANNA MAZARIEGOS MD Common Visit Codes: [id number] INP/OBS CARE(HIGH) ARIANNA MAZARIEGOS MD Nov 12, 2024 18:43
[2024-11-13] VITALS (7 sets, daily range): BP systolic 110–148; BP diastolic 58–95; PULSE 69–87; RESP 18–20; TEMP 97.3–98.6; O2SAT 95–98
[2024-11-13 07:30] LABS: Anion Gap 10 (5-15); Carbon Dioxide 26 mmol/L (20-31); Chloride 102 mmol/L (98-107); Potassium 4.6 mmol/L (3.5-5.1); Sodium 138 mmol/L (136-145)
[2024-11-13 07:31] LABS: Calcium 9.3 mg/dL (8.7-10.4)
[2024-11-13 07:34] LABS: Hematocrit 34.3 % (41.0-53.0); Hemoglobin 11.5 g/dL (13.5-17.5); Mean Corpuscular Hemoglobin 29.2 pg (28.0-32.0); Mean Corpuscular Volume 87.1 fL (80.0-100.0); Nucleated Red Blood Cells % 0.1 %
[2024-11-13 07:35] LABS: Glucose 94 mg/dL (74-106)
[2024-11-13 07:36] LABS: BUN/Creatinine Ratio 26.3 (10.0-20.0); Blood Urea Nitrogen 21 mg/dL (9-23)
[2024-11-13 07:44] LABS: INR 1.02 (0.9-1.15); Partial Thromboplastin Time 31.7 SEC (24.5-34.5); Prothrombin Time 10.8 sec (9.3-11.8)
[2024-11-13] MEDS ORDERED: LIDOCAINE 1% (LOCAL ANESTH.) PF 5ml SDV ID ONE (12:30)
--- NOTE | 2024-11-13 16:07 | DVHDS2 ---
Discharge Summary Date of Admission Nov 07, 2024 at 13:47 Date of Discharge: Nov 13, 2024 Labs/Diagnostic Data: Laboratory Results Test 11/13/24 06:22 White Blood Count 4.9 10^3/uL (4.4-10.8) Red Blood Count 3.93 10^6/uL (4.5-5.90) Hemoglobin 11.5 g/dL (13.5-17.5) Hematocrit 34.3 % (41.0-53.0) Mean Corpuscular Volume 87.1 fL (80.0-100.0) Mean Corpuscular Hemoglobin 29.2 pg (28.0-32.0) Mean Corpuscular Hemoglobin Concent 33.6 g/dL (32.0-36.0) Red Cell Distribution Width 15.4 % (11.8-14.3) Platelet Count 379 10^3/uL (140-450) Mean Platelet Volume 6.9 fL (6.9-10.8) Neutrophils (%) (Auto) 65.5 % (37.0-80.0) Lymphocytes (%) (Auto) 14.4 % (10.0-50.0) Monocytes (%) (Auto) 8.9 % (0.0-12.0) Eosinophils (%) (Auto) 10.0 % (0.0-7.0) Basophils (%) (Auto) 1.2 % (0.0-2.0) Neutrophils # (Auto) 3.2 10 ^3/uL (1.6-8.6) Lymphocytes # (Auto) 0.7 10 ^3/uL (0.4-5.4) Monocytes # (Auto) 0.4 10 ^3/uL (0-1.3) Eosinophils # (Auto) 0.5 10 ^3/uL (0-0.8) Basophils # (Auto) 0.1 10 ^3/uL (0-0.2) Nucleated Red Blood Cells 0.1 % Prothrombin Time 10.8 sec (9.3-11.8) Prothrombin Time INR 1.02 (0.9-1.15) Activated Partial Thromboplast Time 31.7 SEC (24.5-34.5) Sodium Level 138 mmol/L (136-145) Potassium Level 4.6 mmol/L (3.5-5.1) Chloride Level 102 mmol/L (98-107) Carbon Dioxide Level 26 mmol/L (20-31) Anion Gap 10 (5-15) Blood Urea Nitrogen 21 mg/dL (9-23) Creatinine 0.80 mg/dL (0.700-1.30) Glomerular Filtration Rate Calc 101 mL/min (>90) BUN/Creatinine Ratio 26.3 (10.0-20.0) Serum Glucose 94 mg/dL (74-106) Calcium Level 9.3 mg/dL (8.7-10.4) Other Laboratory Tests 11/13/24 06:22 Brief Hx & Hospital Course: 59 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 h parainfluenza in vc culture. starting 2g ceft. picc placed. c/w abx for 6 weeks. OP follow up with ID and ortho. Condition at Discharge: Good Final Diagnosis/Problems List Failed right reverse shoulder arthroplasty s/p r reverse shoulder explantation and hemiarthroplasty concern for infection from intraop frozen section haemophilus parainfluenza joint infection Discharge Disposition: Home with Health Services Discharge Instruct/Medications Scheduled Acetaminophen (Tylenol 8 Hour Arthritis), 650 MG PO TID Docusate Sodium (Colace), 1 CAP PO BID, (Reported) Scheduled PRN Ibuprofen Micronized (Ibuprofen), 800 MG PO Q8HP PRN Miscellaneous Medications Acetaminophen W/ Codeine (Tylenol #4 W/Codeine), 1 TAB PO, (Reported) Albuterol Sulfate (Ventolin Mdi), 90 MCG IN, (Reported) Discharge Statement: "Patient was advised to return to the ER or call 911 if any headaches, dizziness, shortness of breath, chest pain, abdominal pain, bleeding, fevers, or worsening of medical condition. Patient was counseled about treatment plan, medications, possible side effects, patientverbalized understanding. All questions were answered to the best of my ability. This discharge took greater then 30 minutes in planning, reviewing documentation, counseling the patient, and discussing with other team members." ASSESSMENT ASSESSMENT Assessment Failed right reverse shoulder arthroplasty Date of Service: Nov 13, 2024 Billing Provider: ARIANNA MAZARIEGOS MD Common Visit Codes: [id number] DISCH DAY >30min ARIANNA MAZARIEGOS MD Nov 13, 2024 16:07
[2024-11-13] MEDS: guaiFENesin-DM 100/10mg/5ml SYR PO PRN (18:55)
[2024-11-13] MEDS: THROAT LOZENGES(CEPASTAT) MT PRN (20:38)
[2024-11-13] MEDS: SODIUM CHLOR 0.9% PF (SALINE LOCK) 10ML VIAL/SYR IV SCH (22:00)
[2024-11-14 01:00] VITALS: BP 135/76; PULSE 75; RESP 20; TEMP 98.5; O2SAT 96
[2024-11-14 05:00] VITALS: BP 104/77; PULSE 66; RESP 20; TEMP 98.1; O2SAT 95
[2024-11-14 08:00] VITALS: PULSE 69; RESP 18; O2SAT 97
[2024-11-14 09:00] VITALS: BP 101/53; PULSE 69; RESP 18; TEMP 98.2; O2SAT 97
[2024-11-14] MEDS ORDERED: DEXT1SUS PO (10:18)
[2024-11-14] MEDS ORDERED: HYDR-4902 PO (10:18)
[2024-11-14] MEDS ORDERED: ACET-1079 PO (10:18)
[2024-11-14 11:06] VITALS: BP 137/84; PULSE 85; RESP 17; TEMP 99.7; O2SAT 97
--- NOTE | 2024-11-14 13:25 | DVHPN2 ---
Assessment/Plan Assessment/Plan Progress note 59 yo M s/p sreverse shoulder arthroplasty 1 year [employer], direct admit s/p right reverse shoulder explantation with concern of joint infection dc yesterday held for home iv abx availablity. going home today Physical exam AOx4 PERRLA MMM clear breath sounds s1 s2 RRR abdomen soft nontender no LE edema R shoulder in sling Labs EKG imaging reviewed Assessment and plan s/p r reverse shoulder explantation and hemiarthroplasty concern for infection from intraop frozen section c/w iv clinda ancef ID per ortho follow culture diet reg dvt ppx lovenox per ortho full code Plan discussed with: Patient My Orders Orders - ARIANNA MAZARIEGOS MD Procedure Category Date Status Time Discharge DISCHARGE 11/14/24 Transmitted 10:18 Date of Service: Nov 14, 2024 Billing Provider: ARIANNA MAZARIEGOS MD Common Visit Codes: 41294-KAU/OBS DISCH DAY >30min ARIANNA MAZARIEGOS MD Nov 14, 2024 13:25
== END 2024-11-14 11:47 | disposition home health service (06) | DRG 322 ==
LOC: SUR 07:13 → OVERFLOW 13:47 → WEST WING 15:13
PROVIDERS: ADMIT Student in an Organized Health Care Education/Training Program; ATTEND Student in an Organized Health Care Education/Training Program
PROC: 0RRJ0J7 Replacement of Right Shoulder Joint with Synthetic Substitute, Glenoid Surface, Open Approach (ICD-10-PCS; 2024-11-07)
PROC: 0JBD0ZZ Excision of Right Upper Arm Subcutaneous Tissue and Fascia, Open Approach (ICD-10-PCS; 2024-11-07)
PROC: 0RPJ0J7 Removal of Synthetic Substitute from Right Shoulder Joint, Glenoid Surface, Open Approach (ICD-10-PCS; principal; 2024-11-07 09:59)
PROC: 02HV33Z Insertion of Infusion Device into Superior Vena Cava, Percutaneous Approach (ICD-10-PCS; 2024-11-13)
PROC: B548ZZA Ultrasonography of Superior Vena Cava, Guidance (ICD-10-PCS; 2024-11-13)
DX: T84.84XA Pain due to internal orthopedic prosthetic devices, implants and grafts, initial encounter (principal); M00.811 Arthritis due to other bacteria, right shoulder; T81.49XA Infection following a procedure, other surgical site, initial encounter; Z91.199 Patient's noncompliance with other medical treatment and regimen due to unspecified reason; Z96.611 Presence of right artificial shoulder joint; B96.3 Hemophilus influenzae [H. influenzae] as the cause of diseases classified elsewhere; M12.511 Traumatic arthropathy, right shoulder; Z47.89 Encounter for other orthopedic aftercare
CPT/HCPCS: 36415; 36569; 73020; 76000; 76937; 80048; 85025; 85610; 85730; 86850; 86900; 86901; 87070; 87075; 87077; 87205; 97110; 97116; 97163; 97530; A4565; G0378; J0131; J0690; J1885; J2250; J2405; J2704; J3490